=== PATIENT | female | born 1935 | race Caucasian/White ===

== ENCOUNTER → 2017-08-24 | Outpatient (CLI) | payer OTHER ==
[2017-08-24 17:24] LABS: BLOOD UREA NITROGEN 31 mg/dl (7-18); BUN/CREATININE RATIO 25.3 (10-20); CARBON DIOXIDE 27 mmol/L (21-32); CHLORIDE 100 mmol/L (98-107); CREATININE 1.24 mg/dl (0.60-1.20); GLUCOSE 143 mg/dl (70-99); POTASSIUM 4.1 mmol/L (3.5-5.1); SODIUM 134 mmol/L (136-145)
== END | disposition home or self-care (01) ==
LOC: C.LABPBG 15:45
PROVIDERS: ATTEND Family Medicine
DX: I10 Essential (primary) hypertension (principal)

== ENCOUNTER → 2017-10-02 | Outpatient (CLI) | payer OTHER ==
[2017-10-02 17:30] LABS: HEMOGLOBIN 11.5 g/dL (12.0-16.0); MEAN CELL VOLUME 90.7 fL (80-100); MEAN CORPUSCULAR HEMOGLOBIN 29.8 pg (25-34); MEAN CORPUSCULAR HGB CONC 32.9 g/dl (32-36); MEAN PLATELET VOLUME 10.7 fL (7.4-10.4); PLATELET COUNT 215 K/uL (130-400); RED CELL DISTRIBUTION WIDTH SD 45.8 fL (36.4-46.3); WHITE BLOOD COUNT 8.06 K/uL (4.8-10.8)
[2017-10-02 17:41] LABS: BLOOD UREA NITROGEN 11 mg/dl (7-18); CALCIUM 8.7 mg/dl (8.5-10.1); CARBON DIOXIDE 25 mmol/L (21-32); CREATININE 0.61 mg/dl (0.60-1.20); GLUCOSE 145 mg/dl (70-99); POTASSIUM 4.1 mmol/L (3.5-5.1); SODIUM 137 mmol/L (136-145)
[2017-10-02 20:26] LABS: BASO % 0.5 %; BASO ABS # 0.04 K/uL (0-0.2); EOS % 1.1 %; EOS ABS # 0.09 K/uL (0-0.5); IG# 0.02 K/uL (0.00-0.02); LYMPH % 16.6 %; LYMPH ABS # 1.34 K/uL (1.2-3.4); MONO % 10.3 %; MONO ABS # 0.83 K/uL (0.11-0.59); NEUT % 71.3 %; NEUT ABS # 5.74 K/uL (1.4-6.5)
== END | disposition home or self-care (01) ==
LOC: C.LABPBG 15:39
PROVIDERS: ATTEND Family Medicine
DX: D64.9 Anemia, unspecified (principal); R53.1 Weakness

== ENCOUNTER 2017-11-17 02:32 | Inpatient (IN) | payer OTHER ==
[~2017-11-17] VITALS: Ht 157.5 cm; Wt 48.3 kg
[2017-11-17] VITALS (7 sets, daily range): BP systolic 137–218; BP diastolic 66–91; PULSE 66–89; TEMP 36.7–37.2; O2SAT 90–97; Ht 157.5 cm; Wt 48.3 kg
[2017-11-17] MEDS ORDERED: FENTANYL CITRATE INJ 50 MCG/1 ML 2 ML VIAL IV STA ×2 (02:41→03:38)
--- NOTE | 2017-11-17 02:45 | EMERGENCY ROOM VISIT NOTE ---
History Report prepared by Bette: Darvin Hull Under the Supervision of: Dr. Ronn Castañeda M.D. First contact with patient: 02:34 Chief Complaint: FALL Stated Complaint: LEFT LEG PAIN/FALL History of Present Illness The patient is a 82 year old female who presents to the Emergency Room with complaints of constant left hip pain that began prior to arrival. She rates her discomfort as a 10/10 in severity. The patient states that she was ambulating back from the bathroom to her bed when she tripped and fell. She reports she fell on her buttocks and then hit her head posteriorly. She reports that since the fall she has been experiencing left hip and leg pain, but denies any headache and loss of consciousness. The patient states that she recently fell and hit her head again a couple of weeks ago. She reports that she went to the ED for this situation and had multiple stitches placed. The patient states that she had a triple bypass several weeks ago. 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 A total of 10 systems reviewed and were otherwise negative. Past Medical & Surgical Medical Problems: (1) Hypertensive urgency Surgical Problems: (1) Hx of CABG Family History Patient reports no known family medical history. Social History Marital Status: Housing Status: lives with significant other Occupation Status: retired Current/Historical Medications Scheduled Acetaminophen (Tylenol), 500 MG PO QID Aspirin (Aspirin Ec), 81 MG PO DAILY Atorvastatin (Lipitor), 20 MG PO DAILY Carvedilol (Coreg), 25 MG PO BIDM Clopidogrel (Plavix), 75 MG PO DAILY Escitalopram (Lexapro), 10 MG PO DAILY Ferrous Gluconate (Ferrous Gluconate), 324 MG PO QAM Hydralazine Hcl (Apresoline), 10 MG PO QID Lisinopril (Zestril), 30 MG PO DAILY Magnesium Oxide (Mag-Ox), 400 MG PO DAILY Nitroglycerin (Nitrostat), 0.4 MG UT PRN Oseltamivir (Tamiflu), 75 MG PO DAILY Polyethylene Glycol 3350 (Miralax), 17 GM PO DAILY Potassium Chloride (Klor-Con M20), 20 MEQ PO QAM Trazodone Hcl (Trazodone), 25 MG PO HS Scheduled PRN Acetaminophen (Tylenol), 650 MG PO Q4H PRN for Pain or Fever Lorazepam (Ativan), 0.5 MG PO TID PRN for Anxiety Tramadol (Ultram), 50 MG PO Q4H PRN for Pain Allergies Coded Allergies: No Known Allergies (Unverified , 11/17/17) Physical Exam Vital Signs Date Time Temp Pulse Resp B/P (MAP) Pulse Ox O2 Delivery O2 Flow Rate FiO2 11/17/17 05:26 60 16 192/80 95 Nasal Cannula 2.0 11/17/17 04:35 59 16 197/91 96 Nasal Cannula 4.0 11/17/17 03:48 94 Nasal Cannula 4.0 11/17/17 03:47 70 18 233/96 88 Room Air 11/17/17 03:23 71 18 190/116 92 Room Air 11/17/17 02:40 36.8 59 18 218/152 98 Room Air Physical Exam GENERAL: Patient is uncomfortable appearing and in mild distress. HEENT: Mild posterior tenderness to scalp, mucous membranes moist, no nasal congestion, no scleral icterus. NECK: No stridor, no adenopathy, no meningismus, trachea is midline. LUNGS: No dyspnea. Clear to auscultation and equal bilaterally. No wheeze, no rhonchi. HEART: Regular rate and rhythm. No murmurs, rubs, gallops appreciated. CHEST: Well healing sternotomy scar. ABDOMEN: Soft, nontender, bowel sounds positive, no masses appreciated, no peritonitis. BACK: No midline tenderness, no CVA tenderness EXTREMITIES: Normal motion all extremities, no cyanosis, no edema. Shortened externally rotated leg with pain upon palpation to left hip. NEUROLOGIC: Alert and oriented, no acute motor or sensory deficits, no focal weakness, cranial nerves grossly intact. SKIN: No rash, no jaundice, no diaphoresis. Medical Decision & Procedures ER Provider Diagnostic Interpretation: Radiology results and stated below per my review and radiologist interpretation: LEFT FEMUR 4 VIEW: Mild displaced intertrochanteric fracture. No dislocation. ONE VIEW PELVIS: Mild displaced intertrochanteric fracture. No dislocation. CHEST X-RAY: No fracture or dislocation. Laboratory Results 11/17/17 03:03 Red Blood Count 3.94, Mean Corpuscular Volume 92.6, Mean Corpuscular Hemoglobin 28.9, Mean Corpuscular Hemoglobin Concent 31.2, Mean Platelet Volume 11.0, Neutrophils (%) (Auto) 70.1, Lymphocytes (%) (Auto) 17.2, Monocytes (%) (Auto) 10.4, Eosinophils (%) (Auto) 1.1, Basophils (%) (Auto) 0.8, Neutrophils # (Auto ) 5.18, Lymphocytes # (Auto) 1.27, Monocytes # (Auto) 0.77, Eosinophils # (Auto ) 0.08, Basophils # (Auto) 0.06 11/17/17 03:03 Test 11/17/17 03:03 11/17/17 04:53 White Blood Count 7.39 K/uL (4.8-10.8) Red Blood Count 3.94 M/uL (4.2-5.4) Hemoglobin 11.4 g/dL (12.0-16.0) Hematocrit 36.5 % (37-47) Mean Corpuscular Volume 92.6 fL (80-100) Mean Corpuscular Hemoglobin 28.9 pg (25-34) Mean Corpuscular Hemoglobin Concent 31.2 g/dl (32-36) Platelet Count 198 K/uL (130-400) Mean Platelet Volume 11.0 fL (7.4-10.4) Neutrophils (%) (Auto) 70.1 % Lymphocytes (%) (Auto) 17.2 % Monocytes (%) (Auto) 10.4 % Eosinophils (%) (Auto) 1.1 % Basophils (%) (Auto) 0.8 % Neutrophils # (Auto) 5.18 K/uL (1.4-6.5) Lymphocytes # (Auto) 1.27 K/uL (1.2-3.4) Monocytes # (Auto) 0.77 K/uL (0.11-0.59) Eosinophils # (Auto) 0.08 K/uL (0-0.5) Basophils # (Auto) 0.06 K/uL (0-0.2) RDW Standard Deviation 54.8 fL (36.4-46.3) RDW Coefficient of Variation 15.9 % (11.5-14.5) Immature Granulocyte % (Auto) 0.4 % Immature Granulocyte # (Auto) 0.03 K/uL (0.00-0.02) Anion Gap 8.0 mmol/L (3-11) Est Creatinine Clear Calc Drug Dose 37.6 ml/min Estimated GFR () 70.4 Estimated GFR (Non- 60.8 BUN/Creatinine Ratio 20.1 (10-20) Calcium Level 8.9 mg/dl (8.5-10.1) Magnesium Level 2.0 mg/dl (1.8-2.4) Total Bilirubin 0.3 mg/dl (0.2-1) Direct Bilirubin 0.1 mg/dl (0-0.2) Aspartate Amino Transf (AST/SGOT) 21 U/L (15-37) Alanine Aminotransferase (ALT/SGPT) 21 U/L (12-78) Alkaline Phosphatase 77 U/L (45-117) Troponin I 0.021 ng/ml (0-0.045) Pro-B-Type Natriuretic Peptide 5896 pg/ml (0-1800) Total Protein 7.3 gm/dl (6.4-8.2) Albumin 2.8 gm/dl (3.4-5.0) Thyroid Stimulating Hormone (TSH) 2.860 uIu/ml (0.300-4.500) Laboratory results as reviewed by me. Medications Administered Medications (Trade) Dose Ordered Sig/Helio Route Start Time Stop Time Status Last Admin Dose Admin Fentanyl Citrate (Fentanyl Inj) 25 mcg NOW STAT IV 11/17/17 02:41 11/17/17 02:42 DC 11/17/17 03:12 25 MCG Fentanyl Citrate (Fentanyl Inj) 50 mcg NOW STAT IV 11/17/17 03:38 11/17/17 03:39 DC 11/17/17 03:40 50 MCG Labetalol HCl (Normodyne IV) 10 mg NOW STAT IV 11/17/17 04:09 11/17/17 04:10 DC 11/17/17 04:26 10 MG ECG Per My Interpretation Indication: weakness Rate (beats per minute): 55 Rhythm: sinus bradycardia Findings: T-wave inversion (Anterior), no acute ischemic change, no ectopy ED Course 1434: The patient was evaluated in room B02. A complete history and physical exam was performed. 0315: I reevaluated the patient and she is getting pain medication. 0405: I discussed the patients case with Dr. West, [facility]. He understands the patients condition and agrees to accept the patient. The patient will be further evaluated. Medical Decision 82 yr old female with fall at home (mechanical). Notes severe left hip pain. Believes she struck head during fall. She has intertrochanteric fracture on left. CT head negative. Pre-op EKG/labs ordered and are unremarkable. Pain controlled with Fentanyl. HTN with IV labetalol and hospitalist in to evaluate patient further. Head Trauma GCS Score: 15 Medication Reconcilliation Current Medication List: was personally reviewed by me Blood Pressure Screening Patient's blood pressure: Elevated blood pressure Will be monitored by Hospitalist Consults Time Called: 035 Consulting Physician: Mikayla Osborne Hospitalist Returned Call: [phone] I discussed the patients case with Mikayla Osborne [facility]. He understands the patients condition and agrees to accept the patient. The patient will be further evaluated. Impression Primary Impression: Intertrochanteric fracture of left hip Additional Impression: Hypertension Scribe Attestation The scribe's documentation has been prepared under my direction and personally reviewed by me in its entirety. I confirm that the note above accurately reflects all work, treatment, procedures, and medical decision making performed by me. Departure Information Dispostion Being Evaluated By Hospitalist Referrals Danyelle Alvarenga DO (PCP) Patient Instructions My [facility] Problem Qualifiers
[2017-11-17 03:16] LABS: BASO % 0.8 %; BASO ABS # 0.06 K/uL (0-0.2); EOS % 1.1 %; EOS ABS # 0.08 K/uL (0-0.5); HEMATOCRIT 36.5 % (37-47); HEMOGLOBIN 11.4 g/dL (12.0-16.0); IG# 0.03 K/uL (0.00-0.02); LYMPH % 17.2 %; LYMPH ABS # 1.27 K/uL (1.2-3.4); MEAN CELL VOLUME 92.6 fL (80-100); MEAN CORPUSCULAR HEMOGLOBIN 28.9 pg (25-34); MEAN CORPUSCULAR HGB CONC 31.2 g/dl (32-36); MONO % 10.4 %; MONO ABS # 0.77 K/uL (0.11-0.59); NEUT % 70.1 %; NEUT ABS # 5.18 K/uL (1.4-6.5); PLATELET COUNT 198 K/uL (130-400); RED CELL DISTRIBUTION WIDTH CV 15.9 % (11.5-14.5); RED CELL DISTRIBUTION WIDTH SD 54.8 fL (36.4-46.3); WHITE BLOOD COUNT 7.39 K/uL (4.8-10.8)
[2017-11-17] MEDS ORDERED: ACET-1311 PO (03:24)
[2017-11-17] MEDS ORDERED: ATOR-22 PO (03:26)
[2017-11-17] MEDS ORDERED: ASPI81TA28 PO (03:26)
[2017-11-17 03:32] LABS: CALCIUM 8.9 mg/dl (8.5-10.1); CREATININE 0.89 mg/dl (0.60-1.20); POTASSIUM 4.3 mmol/L (3.5-5.1)
[2017-11-17] MEDS ORDERED: CARV25TA2 PO (03:49)
[2017-11-17] MEDS ORDERED: ESCI10TA17 PO (03:51)
[2017-11-17] MEDS ORDERED: CLOP1TAB15 PO (03:51)
[2017-11-17] MEDS ORDERED: FERR325T18 PO (03:52)
[2017-11-17] MEDS ORDERED: HYDR-4715 PO (03:53)
[2017-11-17] MEDS ORDERED: LISI1TAB3 PO (03:54)
[2017-11-17] MEDS ORDERED: LORA-741 PO (03:55)
[2017-11-17] MEDS ORDERED: MAGN400T6 PO (03:56)
[2017-11-17] MEDS ORDERED: NITR0.4S UT (03:58)
[2017-11-17] MEDS ORDERED: MCRK20 PO (04:01)
[2017-11-17] MEDS ORDERED: TRAM-10 PO (04:06)
[2017-11-17] MEDS ORDERED: TRAZ50TA35 PO (04:07)
[2017-11-17] MEDS ORDERED: POLY335019 PO (04:09)
[2017-11-17] MEDS ORDERED: LABETALOL HCL IV 5 MG/ML 20ML IV STA (04:09)
[2017-11-17] MEDS ORDERED: OSEL75CA12 PO (04:11)
[2017-11-17] MEDS ORDERED: ACET-1256 PO (04:14)
[2017-11-17] MEDS ORDERED: CARVEDILOL 12.5 MG TAB PO ONE (04:47)
[2017-11-17 05:17] LABS: ALBUMIN 2.8 gm/dl (3.4-5.0); TOTAL PROTEIN 7.3 gm/dl (6.4-8.2)
[2017-11-17] MEDS ORDERED: HydrALAZINE 10 MG TAB PO ONE (05:19)
[2017-11-17] MEDS ORDERED: ACETAMINOPHEN 325 MG TAB PO PRN (05:30)
[2017-11-17] MEDS ORDERED: NITROGLYCERIN 0.4 MG SL PER TAB CHARGE SL PRN (05:30)
[2017-11-17] MEDS ORDERED: BISACODYL 10 MG SUPP PR PRN (05:30)
[2017-11-17] MEDS ORDERED: PROCHLORPERAZINE INJ 5 MG in SYRINGE 4 ML IV PRN (05:30)
[2017-11-17] MEDS ORDERED: MoRPHine SULFATE 4 MG/ML 1 ML CARP\\VIAL IV PRN ×2 (05:30→07:00)
[2017-11-17] MEDS ORDERED: NALOXONE HCL 0.4 MG/1 ML VIAL/CARP IV PRN (05:30)
[2017-11-17] MEDS ORDERED: SOD PHOSPHATE/SOD BIPHOSPHATE ENEMA 132 ML BTL PR PRN (05:30)
[2017-11-17] MEDS ORDERED: MAGNESIUM HYDROXIDE SUSP 30 ML UDC PO PRN (05:30)
[2017-11-17] MEDS ORDERED: TRAMADOL HCL 50 MG TAB PO PRN (05:30)
--- NOTE | 2017-11-17 06:49 | DIAGNOSTIC IMAGING REPORT ---
HEAD WITHOUT CONTRAST (CT) CLINICAL HISTORY: 82 years-old Female presenting with posterior head injury in fall. TECHNIQUE: Multidetector CT imaging of the head was performed without the use of intravenous contrast. IV contrast: None. A dose lowering technique was used consistent with the principles of ALARA (as low as reasonably achievable). COMPARISON: None. CT DOSE (mGy.cm): The estimated cumulative dose is 614.27 mGy.cm. FINDINGS: Counselor Manager topogram: Unremarkable. Proportional ventricular and sulcal prominence, likely age-related parenchymal volume loss. No effacement of the sulci at the vertex to suggest upward bowing of the corpus callosum. Periventricular and subcortical white matter hypoattenuation, nonspecific but likely indicative of chronic small vessel ischemic change. No mass effect or midline shift. No hemorrhage or acute territorial infarct. No extra-axial fluid collection. Postsurgical changes of right maxillary antrostomy. Mucosal thickening in the right maxillary sinus and ethmoid air cells. Calvarium intact. Limited soft tissue swelling and infiltration consistent with contusion in the right occipital region. IMPRESSION: 1. Chronic small vessel ischemic change. No acute intracranial abnormality. 2. Limited subcutaneous contusion in the right occipital region without underlying osseous injury. Electronically signed by: Yimi Francisco M.D. 11/17/2017 6:47 AM Dictated Date/Time: 11/17/2017 6:44 AM
[2017-11-17] MEDS ORDERED: HALOPERIDOL 1 MG TAB PO PRN (07:00)
[2017-11-17] MEDS: FERROUS GLUCONATE 324 MG TAB PO SCH (07:10)
[2017-11-17] MEDS: ATORVASTATIN 20 MG TAB PO SCH (07:10)
[2017-11-17] MEDS: POLYETHYLENE (MIRALAX) 17 GM PACK PO SCH (07:10)
[2017-11-17] MEDS: ASPIRIN 81 MG ECTAB PO SCH (07:10)
[2017-11-17] MEDS: ESCITALOPRAM OXALATE 10 MG TAB PO SCH (07:10)
[2017-11-17 07:32] LABS: HEMOGLOBIN A1C 5.9 % (4.5-5.6)
--- NOTE | 2017-11-17 07:48 | DIAGNOSTIC IMAGING REPORT ---
PELVIS 1 OR 2 VIEW ROUTINE CLINICAL HISTORY: 82 years-old Female presenting with left hip injury fall. TECHNIQUE: Single frontal view of the pelvis was obtained. COMPARISON: None. FINDINGS: Sacroiliac joints, pubic symphysis, and hip joints congruent. Bony pelvis intact. 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 Degenerative changes of the lower lumbar spine. IMPRESSION: Basocervical left femoral neck fracture with coxa vara angulation. Bony pelvis intact. Electronically signed by: Yimi Francisco M.D. 11/17/2017 7:46 AM Dictated Date/Time: 11/17/2017 7:44 AM
--- NOTE | 2017-11-17 07:49 | DIAGNOSTIC IMAGING REPORT ---
L FEMUR 2 VIEWS ROUTINE CLINICAL HISTORY: 82 years-old Female presenting with left hip injury in fall. TECHNIQUE: Frontal and lateral views of the left femur were obtained. COMPARISON: None. FINDINGS: Coxa vara angulation of the left femoral neck secondary to angulation at the basocervical left femoral neck fracture. The remainder of the left femur is intact. Knee joint congruent. No gross evidence of a knee joint effusion. Atherosclerosis. Surgical clip projects over the left inguinal region. IMPRESSION: Angulated basocervical left frontal neck fracture. The report will be called/faxed according to standard departmental protocol. Electronically signed by: Yimi Francisco M.D. 11/17/2017 7:48 AM Dictated Date/Time: 11/17/2017 7:47 AM
--- NOTE | 2017-11-17 07:50 | DIAGNOSTIC IMAGING REPORT ---
CHEST ONE VIEW PORTABLE CLINICAL HISTORY: 82 years-old Female presenting with Chest Pain, left hip injury status post fall. TECHNIQUE: Portable supine AP view of the chest was obtained. COMPARISON: None. FINDINGS: Median sternotomy wires and mediastinal surgical clips noted. Atherosclerosis of aortic arch. Cardiac silhouette mildly enlarged. Prominence of pulmonary vasculature likely due to supine technique. Lungs and pleural spaces clear. Osseous structures normal. Upper abdomen normal. IMPRESSION: 1. No acute cardiopulmonary disease. Electronically signed by: Yimi Francisco M.D. 11/17/2017 7:49 AM Dictated Date/Time: 11/17/2017 7:48 AM
[2017-11-17] MEDS: LISINOPRIL 20 MG TAB PO SCH (07:56)
[2017-11-17] MEDS ORDERED: HYDROmorphone INJ 1 MG/ML SYR IV STA ×2 (08:10→15:29)
[2017-11-17] MEDS ORDERED: ENALAPRILAT IV 1.25 MG in DEXTROSE 5% 25ML 25 ML IV ONE (08:30)
--- NOTE | 2017-11-17 08:30 | HISTORY & PHYSICAL EXAMINATION ---
DATE OF ADMISSION: 11/17/2017 PRIMARY CARE PHYSICIAN: Dr. Grey. CHIEF COMPLAINT: Fall, left hip pain. HISTORY OF PRESENT ILLNESS: History obtained from patient, daughter and records. Patient is a fair historian. Limited history secondary to dementia. 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 She underwent CABG for coronary artery disease at [facility], September 2017. Subsequently discharged home. Subsequently re-admitted a few days later with pneumonia. Patient subsequently discharged to [facility] initially for rehab. Unclear possibility of the patient ever going back home because of mentation change since bypass surgery. Family is concerned about possible stroke with right-sided facial weakness noted a few days after surgery - never acknowledged by [facility] providers as per daughter. [facility] the [facility], last one was last week. CT head last 11/14/2017 showed scalp hematoma on the right parietal area. no intracranial hemorrhage, Global atrophy, old lacunar infarct on the left. Last night, the patient was going to the bathroom when she fell on her left hip, excruciating pain, L hip noted to be rotated. Patient denies chest pain, shortness of breath, cough symptoms, syncope. Patient brought to the Emergency Room. MEDICAL HISTORY: As above. SURGERIES: She has had CABG. HOME MEDICATIONS: Include aspirin, Lipitor, Tylenol, Coreg, Plavix, Lexapro, ferrous gluconate, Apresoline, Ativan, Zestril, mag ox, Nitrostat, MiraLax and Tamiflu for prophylaxis. Ultram, trazodone. ALLERGIES: No known drug allergies. FAMILY HISTORY: Could not be obtained PERSONAL AND SOCIAL HISTORY: Nonsmoker, no chronic ETOH intake. She was living with prior to surgery at [facility]. REVIEW OF SYSTEMS: Could not be obtained. PHYSICAL EXAMINATION: VITAL SIGNS: Blood pressure was noted to be 190/116, later 180/90 cardiac rate 70, RR 18, temperature 36.9, and sats 90 on room air. GENERAL: Noted to be hyposthenic, demented, coherent, somewhat candid, slightly hard of hearing SKIN: Pallor, warm. HEENT: Pale palpebral conjunctivae, no ptosis, right facial asymmetry (old as per daughter) NECK: Supple, nontender. CHEST: Decreased effort. no tenderness HEART: Regular rate and rhythm. Systolic murmur, palpable LE pulses. ABDOMEN: Some distention, nontender. EXTREMITIES: Tenderness in the left hip, some rotation. NEUROLOGIC: Demented, but coherent. Subtle facial asymmetry, mild hearing impairment. LABORATORY DATA: Hemoglobin was noted to be 11.4, hematocrit 36.5, white cell count 7.89, platelets 198. Sodium 139, potassium4.3, chloride 106, CO2 25, BUN 18, creatinine 8, glucose was noted to be 118. DIAGNOSTIC STUDIES: Chest x-ray as per my interpretation minimal congestion, cardiomegaly. CT of the head initial read showed chronic small vessel ischemic change, subcutaneous contusion, right occipital area. Pelvis x-ray as per my interpretation fracture left femoral neck fracture. EKG as per my interpretation, rate 55, sinus bradycardia, inferior infarct, diffuse T-wave flattening, PRWP ASSESSMENT: 1. Left femoral fracture secondary to mechanical fall. history of ambulatory dysfunction 2. hypertension urgency secondary to pain. 3. chronic systolic heart failure secondary to ischemic cardiomyopathy mild congestion on CXR although the patient asymptomatic. 4. coronary artery disease status post coronary artery bypass graft ([facility], 09/2017) 5 . Possible post CABG CVA 6. COPD as per records, patient not in respiratory distress 7. Chronic anemia, hemoglobin at baseline. 8. Dementia as per records, patient mentation at baseline 9. Hyperglycemia, rule out diabetes. PLAN: PCU primarily for hypertensive urgency Facilitate home antihypertensive meds. analgesia Orthopedics consult as per patient's daughter's request to discuss options for management RE left femoral fracture. If surgery recommended, recommend Cardiology preop eval to medically optimize patient given patient's high risk for cardiac complications for contemplated procedure given recent CVA and multiple comorbidities. Continue home aspirin at the minimum for secondary CAD/stroke prevention. Continue home Plavix if Orthopedics okay. Delirium precautions. Check hemoglobin A1c DVT prophylaxis. SCDs RE recent scalp hematoma from fall. Full code as per daughter, Ms. Noy Slater. She requests update from providers at [phone]. MTDD
[2017-11-17 11:08] LABS: PTT PATIENT 24.7 SECONDS (21.0-31.0)
[2017-11-17] MEDS: HydrALAZINE 10 MG TAB PO SCH ×3 (12:02→21:04)
--- NOTE | 2017-11-17 12:05 | Orthopedic Consultation ---
Orthopedic Consultation Date of Consultation: Nov 17, 2017. Attending Physician: Tosha Peña DO Reason for Consultation: Left hip fracture History of Present Illness Patient was seen at bedside accompanied by family, reported a fall from standing height while ambulating at her living facility and. The patient is a poor historian. The majority of the HPI was obtained by the daughter who was at bedside. The patient has had increased frequency in falls recently. The patient is comfortable at rest however does admit to pain with movement of the left lower extremity. Past Medical/Surgical History Medical Problems: (1) Hypertension Status: Acute (2) Intertrochanteric fracture of left hip Status: Acute Family History Patient reports no known family medical history. Social History Smoking Status: Unknown if Ever Smoked Marital Status: Housing Status: lives with significant other Occupation Status: retired Allergies Coded Allergies: No Known Allergies (Unverified , 11/17/17) Home Medications Scheduled Acetaminophen (Tylenol), 500 MG PO QID Aspirin (Aspirin Ec), 81 MG PO DAILY Atorvastatin (Lipitor), 20 MG PO DAILY Carvedilol (Coreg), 25 MG PO BIDM Clopidogrel (Plavix), 75 MG PO DAILY Escitalopram (Lexapro), 10 MG PO DAILY Ferrous Gluconate (Ferrous Gluconate), 324 MG PO QAM Hydralazine Hcl (Apresoline), 10 MG PO QID Lisinopril (Zestril), 30 MG PO DAILY Magnesium Oxide (Mag-Ox), 400 MG PO DAILY Nitroglycerin (Nitrostat), 0.4 MG UT PRN Oseltamivir (Tamiflu), 75 MG PO DAILY Polyethylene Glycol 3350 (Miralax), 17 GM PO DAILY Potassium Chloride (Klor-Con M20), 20 MEQ PO QAM Trazodone Hcl (Trazodone), 25 MG PO HS Scheduled PRN Acetaminophen (Tylenol), 650 MG PO Q4H PRN for Pain or Fever Lorazepam (Ativan), 0.5 MG PO TID PRN for Anxiety Tramadol (Ultram), 50 MG PO Q4H PRN for Pain Current Inpatient Medications Current Inpatient Medications Medications (Trade) Dose Ordered Sig/Helio Route Start Time Stop Time Status Last Admin Dose Admin Carvedilol (Coreg Tab) 25 mg BIDM PO 11/17/17 16:45 12/17/17 16:44 Acetaminophen (Tylenol Tab) 650 mg Q4H PRN PO 11/17/17 05:30 12/17/17 05:29 Nitroglycerin (Nitrostat Tab) 0.4 mg UD PRN SL 11/17/17 05:30 12/17/17 05:29 Aspirin (Ecotrin Tab) 81 mg DAILY PO 11/17/17 09:00 12/17/17 08:59 Atorvastatin Calcium (Lipitor Tab) 20 mg DAILY PO 11/17/17 09:00 12/17/17 08:59 Escitalopram Oxalate (Lexapro Tab) 10 mg DAILY PO 11/17/17 09:00 12/17/17 08:59 Ferrous Gluconate (Ferrous Gluconate Tab) 324 mg QAM PO 11/17/17 09:00 12/17/17 08:59 Hydralazine HCl (Apresoline Tab) 10 mg QID PO 11/17/17 13:00 12/17/17 12:59 Lisinopril (Zestril Tab) 30 mg DAILY PO 11/17/17 09:00 12/17/17 08:59 11/17/17 07:56 30 MG Tramadol HCl (Ultram Tab) 50 mg Q4H PRN PO 11/17/17 05:30 12/17/17 05:29 Trazodone HCl (Desyrel Tab) 25 mg HS PO 11/17/17 21:00 12/17/17 20:59 Polyethylene (Miralax Powder Packet) 17 gm DAILY PO 11/17/17 09:00 12/17/17 08:59 Prochlorperazine Edisylate 5 mg/ Syringe 5 ml @ 5 mls/min Q6H PRN IV 11/17/17 05:30 12/17/17 05:29 Naloxone HCl (Narcan Inj) 0.1 mg PRN PRN IV 11/17/17 05:30 12/17/17 05:29 Senna/Docusate Sodium (Senokot S Tab) 2 tab HS PO 11/17/17 21:00 12/17/17 20:59 Magnesium Hydroxide (Milk Of Magnesia Susp) 30 ml DAILY PRN PO 11/17/17 05:30 12/17/17 05:29 Bisacodyl (Dulcolax Supp) 10 mg DAILY PRN IL 11/17/17 05:30 12/17/17 05:29 Sodium Biphosphate/ Sodium Phosphate (Fleet Enema) 132 ml PRN PRN IL 11/17/17 05:30 Haloperidol Lactate (Haldol Inj) 2 mg Q2H PRN IM 11/17/17 07:00 12/17/17 06:59 Haloperidol (Haldol Tab) 2 mg Q4H PRN PO 11/17/17 07:45 12/17/17 06:59 Hydromorphone HCl (Dilaudid Inj) 1 mg Q3HWA PRN IV 11/17/17 09:45 12/01/17 09:44 Physical Exam Date Time Temp Pulse Resp B/P (MAP) Pulse Ox O2 Delivery O2 Flow Rate FiO2 11/17/17 08:52 176/73 (107) 11/17/17 08:00 36.7 89 18 213/80 (124) 96 218/91 (133) 11/17/17 08:00 Nasal Cannula 2.0 11/17/17 06:23 36.9 66 22 216/84 97 Nasal Cannula 2.0 11/17/17 05:26 60 16 192/80 95 Nasal Cannula 2.0 11/17/17 04:35 59 16 197/91 96 Nasal Cannula 4.0 11/17/17 03:48 94 Nasal Cannula 4.0 11/17/17 03:47 70 18 233/96 88 Room Air 11/17/17 03:23 71 18 190/116 92 Room Air 11/17/17 02:40 36.8 59 18 218/152 98 Room Air NAD B/L UE NVSI +R/U/M/AIN/PIN, SILT grossly, +2 radial pulse, compartment soft NT, painless ROM wrist, elbow, shoulder. LLE: NVSI +EHL/FHL/TA/GS SILT grossly, short and externally rotated, compartments soft NT, skin intact. RLE: NVSI +EHL/FHL/TA/GS SILT grossly, +2 DP pulse, CR< 2 seconds, compartment soft NT, painless ROM ankle, knee, hip Laboratory Results Last 24 Hours Test 11/17/17 03:03 11/17/17 07:15 11/17/17 10:37 White Blood Count 7.39 K/uL Red Blood Count 3.94 M/uL Hemoglobin 11.4 g/dL Hematocrit 36.5 % Mean Corpuscular Volume 92.6 fL Mean Corpuscular Hemoglobin 28.9 pg Mean Corpuscular Hemoglobin Concent 31.2 g/dl Platelet Count 198 K/uL Mean Platelet Volume 11.0 fL Neutrophils (%) (Auto) 70.1 % Lymphocytes (%) (Auto) 17.2 % Monocytes (%) (Auto) 10.4 % Eosinophils (%) (Auto) 1.1 % Basophils (%) (Auto) 0.8 % Neutrophils # (Auto) 5.18 K/uL Lymphocytes # (Auto) 1.27 K/uL Monocytes # (Auto) 0.77 K/uL Eosinophils # (Auto) 0.08 K/uL Basophils # (Auto) 0.06 K/uL RDW Standard Deviation 54.8 fL RDW Coefficient of Variation 15.9 % Immature Granulocyte % (Auto) 0.4 % Immature Granulocyte # (Auto) 0.03 K/uL Sodium Level 139 mmol/L Potassium Level 4.3 mmol/L Chloride Level 106 mmol/L Carbon Dioxide Level 25 mmol/L Anion Gap 8.0 mmol/L Blood Urea Nitrogen 18 mg/dl Creatinine 0.89 mg/dl Est Creatinine Clear Calc Drug Dose 37.6 ml/min Estimated GFR () 70.4 Estimated GFR (Non- 60.8 BUN/Creatinine Ratio 20.1 Random Glucose 180 mg/dl Estimated Average Glucose 123 mg/dl Hemoglobin A1c 5.9 % Calcium Level 8.9 mg/dl Magnesium Level 2.0 mg/dl Total Bilirubin 0.3 mg/dl Direct Bilirubin 0.1 mg/dl Aspartate Amino Transf (AST/SGOT) 21 U/L Alanine Aminotransferase (ALT/SGPT) 21 U/L Alkaline Phosphatase 77 U/L Troponin I 0.021 ng/ml Pro-B-Type Natriuretic Peptide 5896 pg/ml Total Protein 7.3 gm/dl Albumin 2.8 gm/dl Thyroid Stimulating Hormone (TSH) 2.860 uIu/ml Bedside Glucose 191 mg/dl Activated Partial Thromboplast Time 24.7 SECONDS Partial Thromboplastin Ratio 1.0 Assessment & Plan Left displaced basicervical femoral neck fracture -82yo Female with displaced left basicervical femoral neck fracture sustained after a fall. Pending medical clearance I indicated the patient for left cephalo-medullary nail. The family and patient were informed of the risks and benefits of surgery, which included but not limited to infection, bleeding, blood clots, damage to nerves, vessels, bone and soft tissue, leg length discrepancy, malunion, non union, need for additional surgery and . The patients family collectively chose to move forward with surgical intervention and informed consent was obtained. Given the patient's significant past medical history of recent she will require medical clearance as well as cardiology clearance. She was we are able to obtain those clearances we will move forward with surgical intervention. The plan for surgery is 11/18/17 am. -Bedrest -Brooks -Pain control -NWB LLE -NPO after midnight -hold anticoagulation for surgery
--- NOTE | 2017-11-17 12:06 | Anesthesiology Progress Note ---
Pre-OP Anesthesia Assessment Date of Note Nov 17, 2017. Review patient information reviewed, chart reviewed, labs reviewed, acceptable for surgery Notes Elderly female has left hip fracture. Tentatively scheduled for ORIF, pending medical evaluation. PMH includes HTN, DM, CAD/UT, CABG 09/2017, ?post-CABG CVA, anemia, mild dementia. Pt has had anesthesia in the past without complications. She has been on Plavix up until this admission, hence general anesthesia is indicated for this procedure. Risks vs benefit of GA with direct arterial BP monitoring discussed with pt and her daughter. They expressed understanding and signed informed consent.
--- NOTE | 2017-11-17 12:55 | Cardiology Consultation ---
Cardiology Consultation Date of Service Nov 17, 2017. Cardiology Consultation Indication: Consultation for preoperative risk assessment for her of the left hip fracture History: This is an elderly 82-year-old female who underwent coronary artery bypass surgery at [facility] in September. The patient is demented and a poor historian. Information is taken from the medical record as well as the patient's son who was present during my interview and exam. According to her son, initially she did well after her surgery but then developed sundowning and had at least a 2 week postoperative course and hospital stay. After discharge, his sister who is a nurse, was staying with her mom for approximately 2 weeks but indicated the patient was not rehabbing well and doing very little for herself. She was then readmitted to [facility] with what is described as possible congestive heart failure and pneumonia. She was eventually discharged and had an additional admission which eventually led to her being admitted to [facility]. I have no record of the above hospital admissions. According to the son, it was felt that his mom may have had a perioperative stroke. According to records in [facility], the PA from [facility] with a history of frequent falls. On the morning of admission she was found on the floor by the staff and was complaining of hip discomfort. She was sent to [facility] where she has been found to have a left hip fracture that will need open reduction and fixation. I've been asked to see the patient in regard to risk assessment for surgery. Allergies: No known medical allergies Current Inpatient Medications Medications (Trade) Dose Ordered Sig/Helio Route Start Time Stop Time Status Last Admin Dose Admin Carvedilol (Coreg Tab) 25 mg BIDM PO 11/17/17 16:45 12/17/17 16:44 Acetaminophen (Tylenol Tab) 650 mg Q4H PRN PO 11/17/17 05:30 12/17/17 05:29 Nitroglycerin (Nitrostat Tab) 0.4 mg UD PRN SL 11/17/17 05:30 12/17/17 05:29 Aspirin (Ecotrin Tab) 81 mg DAILY PO 11/17/17 09:00 12/17/17 08:59 Atorvastatin Calcium (Lipitor Tab) 20 mg DAILY PO 11/17/17 09:00 12/17/17 08:59 Escitalopram Oxalate (Lexapro Tab) 10 mg DAILY PO 11/17/17 09:00 12/17/17 08:59 Ferrous Gluconate (Ferrous Gluconate Tab) 324 mg QAM PO 11/17/17 09:00 12/17/17 08:59 Hydralazine HCl (Apresoline Tab) 10 mg QID PO 11/17/17 13:00 12/17/17 12:59 11/17/17 12:02 10 MG Lisinopril (Zestril Tab) 30 mg DAILY PO 11/17/17 09:00 12/17/17 08:59 11/17/17 07:56 30 MG Tramadol HCl (Ultram Tab) 50 mg Q4H PRN PO 11/17/17 05:30 12/17/17 05:29 Trazodone HCl (Desyrel Tab) 25 mg HS PO 11/17/17 21:00 12/17/17 20:59 Polyethylene (Miralax Powder Packet) 17 gm DAILY PO 11/17/17 09:00 12/17/17 08:59 Prochlorperazine Edisylate 5 mg/ Syringe 5 ml @ 5 mls/min Q6H PRN IV 11/17/17 05:30 12/17/17 05:29 Naloxone HCl (Narcan Inj) 0.1 mg PRN PRN IV 11/17/17 05:30 12/17/17 05:29 Senna/Docusate Sodium (Senokot S Tab) 2 tab HS PO 11/17/17 21:00 12/17/17 20:59 Magnesium Hydroxide (Milk Of Magnesia Susp) 30 ml DAILY PRN PO 11/17/17 05:30 12/17/17 05:29 Bisacodyl (Dulcolax Supp) 10 mg DAILY PRN LA 11/17/17 05:30 12/17/17 05:29 Sodium Biphosphate/ Sodium Phosphate (Fleet Enema) 132 ml PRN PRN LA 11/17/17 05:30 Haloperidol Lactate (Haldol Inj) 2 mg Q2H PRN IM 11/17/17 07:00 12/17/17 06:59 Haloperidol (Haldol Tab) 2 mg Q4H PRN PO 11/17/17 07:45 12/17/17 06:59 Hydromorphone HCl (Dilaudid Inj) 1 mg Q3HWA PRN IV 11/17/17 09:45 12/01/17 09:44 Past medical history: Per the history of chief complaint in addition the patient may have sustained a previous stroke and according to records a possible cerebral contusion following a recent fall. She also may have a history of COPD. Social history: Patient is currently a nonsmoker Family medical history: Noncontributory Review of systems: Except for the history of chief complaint unobtainable Vital Signs Past 12 Hours Date Time Temp Pulse Resp B/P (MAP) Pulse Ox O2 Delivery O2 Flow Rate FiO2 11/17/17 12:02 36.8 66 18 186/73 (110) 95 11/17/17 12:00 Nasal Cannula 2.0 11/17/17 08:52 176/73 (107) 11/17/17 08:00 36.7 89 18 213/80 (124) 96 218/91 (133) 11/17/17 08:00 Nasal Cannula 2.0 11/17/17 06:23 36.9 66 22 216/84 97 Nasal Cannula 2.0 11/17/17 05:26 60 16 192/80 95 Nasal Cannula 2.0 11/17/17 04:35 59 16 197/91 96 Nasal Cannula 4.0 11/17/17 03:48 94 Nasal Cannula 4.0 11/17/17 03:47 70 18 233/96 88 Room Air 11/17/17 03:23 71 18 190/116 92 Room Air 11/17/17 02:40 36.8 59 18 218/152 98 Room Air General Appearance: The patient is demented and disoriented Head: Normocephalic Atraumatic. Eyes: PERRLA, EOMI, conjunctiva and sclera clear Neck: Supple. No carotid bruits noted. No JVD. No HJD. Respiratory: Breath sounds clear to auscultation bilaterally. No w/r/r. Cardiovascular: Surgical scar on the anterior chest Reg rate and rhythm. S1 and S2 noted. No murmurs, rubs, gallops. PMI non displace. Abdomen: Normal bowel sounds, soft nontender. no abdominal bruits. Extremities: No edema, no clubbing or cyanosis. distal pulses 2/4 bilaterally. Neuro: No focal deficits. Psychiatric: Disoriented Last 24 Hours Test 11/17/17 03:03 11/17/17 07:15 11/17/17 10:37 White Blood Count 7.39 K/uL Red Blood Count 3.94 M/uL Hemoglobin 11.4 g/dL Hematocrit 36.5 % Mean Corpuscular Volume 92.6 fL Mean Corpuscular Hemoglobin 28.9 pg Mean Corpuscular Hemoglobin Concent 31.2 g/dl Platelet Count 198 K/uL Mean Platelet Volume 11.0 fL Neutrophils (%) (Auto) 70.1 % Lymphocytes (%) (Auto) 17.2 % Monocytes (%) (Auto) 10.4 % Eosinophils (%) (Auto) 1.1 % Basophils (%) (Auto) 0.8 % Neutrophils # (Auto) 5.18 K/uL Lymphocytes # (Auto) 1.27 K/uL Monocytes # (Auto) 0.77 K/uL Eosinophils # (Auto) 0.08 K/uL Basophils # (Auto) 0.06 K/uL RDW Standard Deviation 54.8 fL RDW Coefficient of Variation 15.9 % Immature Granulocyte % (Auto) 0.4 % Immature Granulocyte # (Auto) 0.03 K/uL Sodium Level 139 mmol/L Potassium Level 4.3 mmol/L Chloride Level 106 mmol/L Carbon Dioxide Level 25 mmol/L Anion Gap 8.0 mmol/L Blood Urea Nitrogen 18 mg/dl Creatinine 0.89 mg/dl Est Creatinine Clear Calc Drug Dose 37.6 ml/min Estimated GFR () 70.4 Estimated GFR (Non- 60.8 BUN/Creatinine Ratio 20.1 Random Glucose 180 mg/dl Estimated Average Glucose 123 mg/dl Hemoglobin A1c 5.9 % Calcium Level 8.9 mg/dl Magnesium Level 2.0 mg/dl Total Bilirubin 0.3 mg/dl Direct Bilirubin 0.1 mg/dl Aspartate Amino Transf (AST/SGOT) 21 U/L Alanine Aminotransferase (ALT/SGPT) 21 U/L Alkaline Phosphatase 77 U/L Troponin I 0.021 ng/ml Pro-B-Type Natriuretic Peptide 5896 pg/ml Total Protein 7.3 gm/dl Albumin 2.8 gm/dl Thyroid Stimulating Hormone (TSH) 2.860 uIu/ml Bedside Glucose 191 mg/dl Activated Partial Thromboplast Time 24.7 SECONDS Partial Thromboplastin Ratio 1.0 Impression: 1. Advanced dementia 2. History of previous strokes 3. Left hip fracture 4. Recent CABG 5. History of COPD Recommendations: This patient is at increased risk for any surgical procedures due to her advanced dementia, recent strokes and other medical problems however , the patient is currently hemodynamically stable and optimally medically managed. She will need to have the hip fracture stabilized for comfort and quality of life. I discussed with the patient's son who is understanding regarding the risks of surgery. Both the son as well as his sister are agreeable to allowing the surgery to be completed. I will try to obtain the records of her recent hospital admissions. I will also obtain an echocardiogram for baseline and to help medically manage this patient but it should not delay her surgery. We will follow along with you during her hospital stay.
[2017-11-17] MEDS: HYDROmorphone INJ 1 MG/ML SYR IV PRN ×3 (13:39→21:05)
--- NOTE | 2017-11-17 15:29 | Progress Note ---
Subjective Date of Service: Nov 17, 2017. Subjective Pt evaluation today including: conversation w/ patient, conversation w/ family , physical exam, lab review, review of studies, conversation w/ jd edwards consultant, review of inpatient medication list Saw/examined the patient in room 238 She has underlying dementia Daughter and son at bedside - I spoke with them regarding patient's condition - high risk for surgery patient's pain better controlled with Dilaudid Problem List Medical Problems: (1) Hypertension Status: Acute (2) Intertrochanteric fracture of left hip Status: Acute Review of Systems Difficult to obtain due to patient's mental status Medications Current Inpatient Medications Medications (Trade) Dose Ordered Sig/Helio Route Start Time Stop Time Status Last Admin Dose Admin Carvedilol (Coreg Tab) 25 mg BIDM PO 11/17/17 16:45 12/17/17 16:44 Acetaminophen (Tylenol Tab) 650 mg Q4H PRN PO 11/17/17 05:30 12/17/17 05:29 Nitroglycerin (Nitrostat Tab) 0.4 mg UD PRN SL 11/17/17 05:30 12/17/17 05:29 Aspirin (Ecotrin Tab) 81 mg DAILY PO 11/17/17 09:00 12/17/17 08:59 Atorvastatin Calcium (Lipitor Tab) 20 mg DAILY PO 11/17/17 09:00 12/17/17 08:59 Escitalopram Oxalate (Lexapro Tab) 10 mg DAILY PO 11/17/17 09:00 12/17/17 08:59 Ferrous Gluconate (Ferrous Gluconate Tab) 324 mg QAM PO 11/17/17 09:00 12/17/17 08:59 Hydralazine HCl (Apresoline Tab) 10 mg QID PO 11/17/17 13:00 12/17/17 12:59 11/17/17 12:02 10 MG Lisinopril (Zestril Tab) 30 mg DAILY PO 11/17/17 09:00 12/17/17 08:59 11/17/17 07:56 30 MG Tramadol HCl (Ultram Tab) 50 mg Q4H PRN PO 11/17/17 05:30 12/17/17 05:29 Trazodone HCl (Desyrel Tab) 25 mg HS PO 11/17/17 21:00 12/17/17 20:59 Polyethylene (Miralax Powder Packet) 17 gm DAILY PO 11/17/17 09:00 12/17/17 08:59 Prochlorperazine Edisylate 5 mg/ Syringe 5 ml @ 5 mls/min Q6H PRN IV 11/17/17 05:30 12/17/17 05:29 Naloxone HCl (Narcan Inj) 0.1 mg PRN PRN IV 11/17/17 05:30 12/17/17 05:29 Senna/Docusate Sodium (Senokot S Tab) 2 tab HS PO 11/17/17 21:00 12/17/17 20:59 Magnesium Hydroxide (Milk Of Magnesia Susp) 30 ml DAILY PRN PO 11/17/17 05:30 12/17/17 05:29 Bisacodyl (Dulcolax Supp) 10 mg DAILY PRN IL 11/17/17 05:30 12/17/17 05:29 Sodium Biphosphate/ Sodium Phosphate (Fleet Enema) 132 ml PRN PRN IL 11/17/17 05:30 Haloperidol Lactate (Haldol Inj) 2 mg Q2H PRN IM 11/17/17 07:00 12/17/17 06:59 Haloperidol (Haldol Tab) 2 mg Q4H PRN PO 11/17/17 07:45 12/17/17 06:59 Hydromorphone HCl (Dilaudid Inj) 1 mg Q3HWA PRN IV 11/17/17 09:45 12/01/17 09:44 11/17/17 13:39 1 MG Objective Vital Signs Date Time Temp Pulse Resp B/P (MAP) Pulse Ox O2 Delivery O2 Flow Rate FiO2 11/17/17 08:52 176/73 (107) 11/17/17 08:00 36.7 89 18 213/80 (124) 96 218/91 (133) 11/17/17 08:00 Nasal Cannula 2.0 11/17/17 06:23 36.9 66 22 216/84 97 Nasal Cannula 2.0 11/17/17 05:26 60 16 192/80 95 Nasal Cannula 2.0 11/17/17 04:35 59 16 197/91 96 Nasal Cannula 4.0 11/17/17 03:48 94 Nasal Cannula 4.0 11/17/17 03:47 70 18 233/96 88 Room Air 11/17/17 03:23 71 18 190/116 92 Room Air 11/17/17 02:40 36.8 59 18 218/152 98 Room Air Physical Exam General Appearance: no apparent distress, + thin, + pertinent finding ( underlying dementia) ENT: + pertinent finding (R posterior scalp hematoma noted) Respiratory/Chest: lungs clear, normal breath sounds, no respiratory distress, no accessory muscle use Cardiovascular: regular rate, rhythm, no edema, no murmur Extremities: normal inspection, no pedal edema Laboratory Results Last 24 Hours Test 11/17/17 03:03 11/17/17 04:53 11/17/17 07:15 White Blood Count 7.39 K/uL Red Blood Count 3.94 M/uL Hemoglobin 11.4 g/dL Hematocrit 36.5 % Mean Corpuscular Volume 92.6 fL Mean Corpuscular Hemoglobin 28.9 pg Mean Corpuscular Hemoglobin Concent 31.2 g/dl Platelet Count 198 K/uL Mean Platelet Volume 11.0 fL Neutrophils (%) (Auto) 70.1 % Lymphocytes (%) (Auto) 17.2 % Monocytes (%) (Auto) 10.4 % Eosinophils (%) (Auto) 1.1 % Basophils (%) (Auto) 0.8 % Neutrophils # (Auto) 5.18 K/uL Lymphocytes # (Auto) 1.27 K/uL Monocytes # (Auto) 0.77 K/uL Eosinophils # (Auto) 0.08 K/uL Basophils # (Auto) 0.06 K/uL RDW Standard Deviation 54.8 fL RDW Coefficient of Variation 15.9 % Immature Granulocyte % (Auto) 0.4 % Immature Granulocyte # (Auto) 0.03 K/uL Sodium Level 139 mmol/L Potassium Level 4.3 mmol/L Chloride Level 106 mmol/L Carbon Dioxide Level 25 mmol/L Anion Gap 8.0 mmol/L Blood Urea Nitrogen 18 mg/dl Creatinine 0.89 mg/dl Est Creatinine Clear Calc Drug Dose 37.6 ml/min Estimated GFR () 70.4 Estimated GFR (Non- 60.8 BUN/Creatinine Ratio 20.1 Random Glucose 180 mg/dl Estimated Average Glucose 123 mg/dl Hemoglobin A1c 5.9 % Calcium Level 8.9 mg/dl Magnesium Level 2.0 mg/dl Total Bilirubin 0.3 mg/dl Direct Bilirubin 0.1 mg/dl Aspartate Amino Transf (AST/SGOT) 21 U/L Alanine Aminotransferase (ALT/SGPT) 21 U/L Alkaline Phosphatase 77 U/L Troponin I 0.021 ng/ml Pro-B-Type Natriuretic Peptide 5896 pg/ml Total Protein 7.3 gm/dl Albumin 2.8 gm/dl Thyroid Stimulating Hormone (TSH) 2.860 uIu/ml Bedside Glucose 191 mg/dl Assessment and Plan This is an 82 year old female with a PMH of CAD s/p CABG, ischemic cardiomyopathy and chronic systolic CHF, uncontrolled HTN, depression/anxiety, anemia - presents with a fall and subsequent hip fracture Multiple Falls due to Ambulatory Dysfunction L Femoral Neck Fracture patient presents to the hospital due to multiple falls from [facility] last fall caused significant L hip pain; upon presentation had imaging confirming fracture orthopedics input appreciated - to go for surgery in AM (11/18) cardiology consulted for clearance; she is high risk for surgery, but for quality of life, will proceed Plavix is held, will restart on 11/19 anesthesia also consulted; patient may need a one day stay in ICU post- operatively Altered Mental Status patient's family stating that she has not been the same mentally since her CABG in September Head CT suggests chronic small vessel changes may need to increase statin and possibly aspirin dose - but will refrain from making changes until after surgery CAD s/p CABG recent CABG in September 2017 continue current cardiac meds (hold Plavix for surgery) repeat echo pending cardiology consulted Uncontrolled HTN difficult to control blood pressure, likely worsened secondary to pain as per daughter, blood pressure has been an issue for over 4 months she is on Coreg; would be hesitant to increase this due to intermittent low HRs She is on Hydralazine 10mg QID and Lisinopril 30mg daily if blood pressure remains high, will likely increase Lisinopril to 40mg vs. adding CCB Ischemic Cardiomyopathy Chronic Systolic CHF currently euvolemic no need for any diuretics at this time Depression/Anxiety continue home medications Iron Deficiency Anemia Hgb stable, continue iron supplementation DVT ppx SCDs due to hematoma in the scalp may need chemical prophylaxis post operatively due to high risk of DVTs FULL CODE
[2017-11-17] MEDS ORDERED: NURSING VERBAL MED ORDER ONE (15:30)
[2017-11-17] MEDS: CARVEDILOL 25 MG TAB PO SCH (16:20)
[2017-11-17] MEDS ORDERED: DOCUSATE SODIUM/SENNA 50/8.6MG TAB PO SCH (21:00)
[2017-11-17] MEDS: TRAZODONE HCL 50 MG TAB PO SCH (21:03)
[2017-11-17] MEDS: HALOPERIDOL 1 MG TAB PO PRN (23:02)
[2017-11-18] VITALS (22 sets, daily range): BP systolic 123–202; BP diastolic 42–91; PULSE 56–78; TEMP 36.5–37.9; O2SAT 90–99
[2017-11-18] MEDS: HYDROmorphone INJ 1 MG/ML SYR IV PRN ×4 (00:30→20:27)
[2017-11-18 07:03] LABS: CALCIUM 9.2 mg/dl (8.5-10.1); CREATININE 0.85 mg/dl (0.60-1.20); POTASSIUM 4.5 mmol/L (3.5-5.1)
[2017-11-18 07:13] LABS: BASO % 0.7 %; BASO ABS # 0.07 K/uL (0-0.2); EOS % 0.6 %; EOS ABS # 0.06 K/uL (0-0.5); HEMATOCRIT 33.2 % (37-47); HEMOGLOBIN 10.4 g/dL (12.0-16.0); IG# 0.03 K/uL (0.00-0.02); LYMPH % 17.8 %; LYMPH ABS # 1.88 K/uL (1.2-3.4); MEAN CELL VOLUME 92.2 fL (80-100); MEAN CORPUSCULAR HEMOGLOBIN 28.9 pg (25-34); MEAN CORPUSCULAR HGB CONC 31.3 g/dl (32-36); MEAN PLATELET VOLUME 10.4 fL (7.4-10.4); MONO % 10.2 %; MONO ABS # 1.08 K/uL (0.11-0.59); NEUT % 70.4 %; NEUT ABS # 7.45 K/uL (1.4-6.5); PLATELET COUNT 231 K/uL (130-400); RED CELL DISTRIBUTION WIDTH CV 16.1 % (11.5-14.5); RED CELL DISTRIBUTION WIDTH SD 54.4 fL (36.4-46.3); WHITE BLOOD COUNT 10.57 K/uL (4.8-10.8)
[2017-11-18] MEDS: CARVEDILOL 25 MG TAB PO SCH (07:30)
[2017-11-18] MEDS ORDERED: METOPROLOL TARTRATE 1 MG/ML VIAL IV STA (08:10)
[2017-11-18] MEDS ORDERED: HYDROmorphone INJ 1 MG/ML SYR IV STA (08:10)
[2017-11-18] MEDS: HydrALAZINE 10 MG TAB PO SCH ×3 (08:24→21:00)
[2017-11-18] MEDS: POTASSIUM CHLORIDE 20 MEQ TABCR PO SCH (08:24)
[2017-11-18] MEDS: ASPIRIN 81 MG ECTAB PO SCH (08:24)
[2017-11-18] MEDS: FERROUS GLUCONATE 324 MG TAB PO SCH (08:24)
[2017-11-18] MEDS: ATORVASTATIN 20 MG TAB PO SCH (08:25)
[2017-11-18] MEDS: POLYETHYLENE (MIRALAX) 17 GM PACK PO SCH (08:25)
[2017-11-18] MEDS: LISINOPRIL 20 MG TAB PO SCH (08:25)
[2017-11-18] MEDS: MAGNESIUM OXIDE 400 MG TAB PO SCH (08:25)
[2017-11-18] MEDS: ESCITALOPRAM OXALATE 10 MG TAB PO SCH (08:25)
[2017-11-18] MEDS ORDERED: MEPERIDINE HCL 25 MG/ML CARP IV PRN (08:30)
[2017-11-18] MEDS ORDERED: ATROPINE SULFATE 0.1 MG/ML 5ML SYR IV PRN (08:30)
[2017-11-18] MEDS ORDERED: HYDROmorphone INJ 1 MG/ML SYR IV PRN (08:30)
[2017-11-18] MEDS ORDERED: FENTANYL CITRATE INJ 50 MCG/1 ML 2 ML VIAL IV PRN (08:30)
[2017-11-18] MEDS ORDERED: ONDANSETRON INJ 2 MG/ML 2 ML VIAL IV PRN ×2 (08:30→14:15)
[2017-11-18] MEDS ORDERED: LABETALOL HCL IV 5 MG/ML 20ML IV PRN (08:30)
[2017-11-18] MEDS ORDERED: EpHEDrine SULFATE INJ 50 MG/ML AMP IV PRN (08:30)
--- NOTE | 2017-11-18 08:39 | Progress Note ---
Subjective Date of Service: Nov 18, 2017. Subjective Pt evaluation today including: conversation w/ patient, physical exam, lab review, review of studies, review of inpatient medication list Saw/examined the patient in room 237 Underlying dementia noted She is yelling out; presumably with pain, though when talking to patient; she does converse without pain Problem List Medical Problems: (1) Hypertension Status: Acute (2) Intertrochanteric fracture of left hip Status: Acute Review of Systems difficult to obtain due to patient's mental status Medications Current Inpatient Medications Medications (Trade) Dose Ordered Sig/Helio Route Start Time Stop Time Status Last Admin Dose Admin Carvedilol (Coreg Tab) 25 mg BIDM PO 11/17/17 16:45 12/17/17 16:44 11/17/17 16:20 25 MG Acetaminophen (Tylenol Tab) 650 mg Q4H PRN PO 11/17/17 05:30 12/17/17 05:29 Nitroglycerin (Nitrostat Tab) 0.4 mg UD PRN SL 11/17/17 05:30 12/17/17 05:29 Aspirin (Ecotrin Tab) 81 mg DAILY PO 11/17/17 09:00 12/17/17 08:59 Atorvastatin Calcium (Lipitor Tab) 20 mg DAILY PO 11/17/17 09:00 12/17/17 08:59 Escitalopram Oxalate (Lexapro Tab) 10 mg DAILY PO 11/17/17 09:00 12/17/17 08:59 Ferrous Gluconate (Ferrous Gluconate Tab) 324 mg QAM PO 11/17/17 09:00 12/17/17 08:59 Hydralazine HCl (Apresoline Tab) 10 mg QID PO 11/17/17 13:00 12/17/17 12:59 11/17/17 21:04 10 MG Lisinopril (Zestril Tab) 30 mg DAILY PO 11/17/17 09:00 12/17/17 08:59 11/17/17 07:56 30 MG Tramadol HCl (Ultram Tab) 50 mg Q4H PRN PO 11/17/17 05:30 12/17/17 05:29 Trazodone HCl (Desyrel Tab) 25 mg HS PO 11/17/17 21:00 12/17/17 20:59 11/17/17 21:03 25 MG Polyethylene (Miralax Powder Packet) 17 gm DAILY PO 11/17/17 09:00 12/17/17 08:59 Prochlorperazine Edisylate 5 mg/ Syringe 5 ml @ 5 mls/min Q6H PRN IV 11/17/17 05:30 12/17/17 05:29 Naloxone HCl (Narcan Inj) 0.1 mg PRN PRN IV 11/17/17 05:30 12/17/17 05:29 Senna/Docusate Sodium (Senokot S Tab) 2 tab HS PO 11/17/17 21:00 12/17/17 20:59 11/17/17 21:03 2 TAB Magnesium Hydroxide (Milk Of Magnesia Susp) 30 ml DAILY PRN PO 11/17/17 05:30 12/17/17 05:29 Bisacodyl (Dulcolax Supp) 10 mg DAILY PRN PA 11/17/17 05:30 12/17/17 05:29 Sodium Biphosphate/ Sodium Phosphate (Fleet Enema) 132 ml PRN PRN PA 11/17/17 05:30 Haloperidol Lactate (Haldol Inj) 2 mg Q2H PRN IM 11/17/17 07:00 12/17/17 06:59 Haloperidol (Haldol Tab) 2 mg Q4H PRN PO 11/17/17 07:45 12/17/17 06:59 11/17/17 23:02 2 MG Hydromorphone HCl (Dilaudid Inj) 1 mg Q3HWA PRN IV 11/17/17 09:45 12/01/17 09:44 11/18/17 05:49 1 MG Magnesium Oxide (Mag-Ox Tab) 400 mg DAILY PO 11/18/17 09:00 12/18/17 08:59 Potassium Chloride (Klor-Con Tab) 20 meq QAM PO 11/18/17 09:00 12/18/17 08:59 Fentanyl Citrate (Fentanyl Inj) 50 mcg Q5M PRN IV 11/18/17 08:30 11/18/17 13:00 Hydromorphone HCl (Dilaudid Inj) 0.5 mg Q5M PRN IV 11/18/17 08:30 11/18/17 13:00 Meperidine HCl (Demerol Inj) 25 mg Q5M PRN IV 11/18/17 08:30 11/18/17 13:00 Ondansetron HCl (Zofran Inj) 4 mg ONE PRN IV 11/18/17 08:30 11/18/17 13:00 Labetalol HCl (Normodyne IV) 5 mg Q5M PRN IV 11/18/17 08:30 11/18/17 13:00 Ephedrine Sulfate (EpHEDrine SULFATE INJ) 5 mg Q5M PRN IV 11/18/17 08:30 11/18/17 13:00 Atropine Sulfate (Atropine Sulfate 0.1mg/ml Inj) 0.5 mg Q1M PRN IV 11/18/17 08:30 11/18/17 13:00 Objective Vital Signs Date Time Temp Pulse Resp B/P (MAP) Pulse Ox O2 Delivery O2 Flow Rate FiO2 11/18/17 08:17 77 193/78 11/18/17 04:00 Nasal Cannula 4.0 11/18/17 03:53 36.7 69 20 169/69 (102) 90 Nasal Cannula 3.0 11/17/17 23:59 Nasal Cannula 3.0 11/17/17 23:32 37.2 70 22 167/66 (99) 90 Nasal Cannula 2.0 11/17/17 20:00 Nasal Cannula 2.0 11/17/17 19:02 37.1 72 16 137/74 (95) 94 Nasal Cannula 2.0 11/17/17 16:02 36.9 67 20 163/80 (107) 94 Nasal Cannula 2.0 11/17/17 16:00 Nasal Cannula 2.0 11/17/17 12:02 36.8 66 18 186/73 (110) 95 11/17/17 12:00 Nasal Cannula 2.0 11/17/17 08:52 176/73 (107) Physical Exam General Appearance: + mild distress, + pertinent finding (underlying dementia; confusion) Respiratory/Chest: no respiratory distress, no accessory muscle use, + rhonchi Cardiovascular: regular rate, rhythm, no edema Laboratory Results Last 24 Hours Test 11/17/17 10:37 11/18/17 05:19 Activated Partial Thromboplast Time 24.7 SECONDS Partial Thromboplastin Ratio 1.0 White Blood Count 10.57 K/uL Red Blood Count 3.60 M/uL Hemoglobin 10.4 g/dL Hematocrit 33.2 % Mean Corpuscular Volume 92.2 fL Mean Corpuscular Hemoglobin 28.9 pg Mean Corpuscular Hemoglobin Concent 31.3 g/dl Platelet Count 231 K/uL Mean Platelet Volume 10.4 fL Neutrophils (%) (Auto) 70.4 % Lymphocytes (%) (Auto) 17.8 % Monocytes (%) (Auto) 10.2 % Eosinophils (%) (Auto) 0.6 % Basophils (%) (Auto) 0.7 % Neutrophils # (Auto) 7.45 K/uL Lymphocytes # (Auto) 1.88 K/uL Monocytes # (Auto) 1.08 K/uL Eosinophils # (Auto) 0.06 K/uL Basophils # (Auto) 0.07 K/uL RDW Standard Deviation 54.4 fL RDW Coefficient of Variation 16.1 % Immature Granulocyte % (Auto) 0.3 % Immature Granulocyte # (Auto) 0.03 K/uL Sodium Level 139 mmol/L Potassium Level 4.5 mmol/L Chloride Level 103 mmol/L Carbon Dioxide Level 30 mmol/L Anion Gap 6.0 mmol/L Blood Urea Nitrogen 15 mg/dl Creatinine 0.85 mg/dl Est Creatinine Clear Calc Drug Dose 38.8 ml/min Estimated GFR () 74.5 Estimated GFR (Non- 64.3 BUN/Creatinine Ratio 17.2 Random Glucose 185 mg/dl Calcium Level 9.2 mg/dl Assessment and Plan This is an 82 year old female with a PMH of CAD s/p CABG, ischemic cardiomyopathy and chronic systolic CHF, uncontrolled HTN, depression/anxiety, anemia - presents with a fall and subsequent hip fracture Multiple Falls due to Ambulatory Dysfunction L Femoral Neck Fracture 11/18 plan for surgical repair today in the OR will give an extra dose of Dilaudid for pain appreciate cardiology input - high risk for surgery 11/17 patient presents to the hospital due to multiple falls from [facility] last fall caused significant L hip pain; upon presentation had imaging confirming fracture orthopedics input appreciated - to go for surgery in AM (11/18) cardiology consulted for clearance; she is high risk for surgery, but for quality of life, will proceed Plavix is held, will restart on 11/19 anesthesia also consulted; patient may need a one day stay in ICU post- operatively Altered Mental Status patient's family stating that she has not been the same mentally since her CABG in September Head CT suggests chronic small vessel changes may need to increase statin and possibly aspirin dose - but will refrain from making changes until after surgery CAD s/p CABG recent CABG in September 2017 continue current cardiac meds (hold Plavix for surgery) repeat echo pending cardiology consulted Uncontrolled HTN difficult to control blood pressure, likely worsened secondary to pain as per daughter, blood pressure has been an issue for over 4 months she is on Coreg; would be hesitant to increase this due to intermittent low HRs She is on Hydralazine 10mg QID and Lisinopril 30mg daily if blood pressure remains high, will likely increase Lisinopril to 40mg vs. adding CCB Ischemic Cardiomyopathy Chronic Systolic CHF currently euvolemic no need for any diuretics at this time Depression/Anxiety continue home medications Iron Deficiency Anemia Hgb stable, continue iron supplementation DVT ppx SCDs due to hematoma in the scalp may need chemical prophylaxis post operatively due to high risk of DVTs FULL CODE
--- NOTE | 2017-11-18 09:01 | ECHOCARDIOGRAM REPORT ---
*NOTICE TO RECEIVING CONSTITUTION PARTY AGENCY This information is strictly Confidential and protected under [place] law. [place] law prohibits you from making any further disclosure of this information unless further disclosure is expressly permitted by the written consent of the person to whom it pertains or is authorized by law. A general authorization for the release of medical or other information is not sufficient for this purpose. Hospital accepts no responsibility if the information is made available to any other person, INCLUDING THE PATIENT. Interpretation Summary * Name: TOBIN DELGADO Study Date: 11/17/2017 01:11 PM BP: 186/73 mmHg * Patient Location: C.2T\S\S238\S\1 HR: 66 * : 1935 (M/d/yyyy) Gender: Female Height: 62 in * Age: 82 yrs Ethnicity: CA Weight: 107 lb * Ordering Physician: Tk Langford * Performed By: Majo Cerna RDCS * * Reason For Study: Syncope * BSA: 1.5 m2 * -- Conclusions -- * The left ventricle is normal in size. * There is moderate concentric left ventricular hypertrophy. * There is mild apical wall hypokinesis. * Ejection Fraction = 55-60%. * The right ventricular systolic function is normal. * There is mild mitral regurgitation. * There is mild tricuspid regurgitation. Procedure Details * A complete two-dimensional transthoracic echocardiogram was performed (2D, M-mode, Doppler and color flow Doppler). Left Ventricle * The left ventricle is normal in size. * There is no thrombus. * There is moderate concentric left ventricular hypertrophy. * Ejection Fraction = 55-60%. * There is mild apical wall hypokinesis. Right Ventricle * The right ventricle is normal size. * The right ventricular systolic function is normal. Atria * The left atrial size is normal. * Right atrial size is normal. * No ASD detected; PFO is not assessed. Mitral Valve * There is mild mitral annular calcification. * The mitral valve leaflets appear thickened, but open well. * There is mild mitral regurgitation. Tricuspid Valve * The tricuspid valve is not well visualized, but is grossly normal. * There is mild tricuspid regurgitation. Aortic Valve * Aortic valve sclerosis mild, without significant aortic valvular stenosis. * The aortic valve opens well. * There is no significant aortic regurgitation. Great Vessels * The aortic root and proximal ascending aorta are normal sized. Pericardium/Pleural * There is no pericardial effusion. Left Ventricular Diastolic Function * Diastolic dysfunction, Grade II (pseudonormalization pattern). MMode 2D Measurements and Calculations IVSd 1.4 cm IVSs 1.6 cm LVIDd 4.4 cm LVIDs 3.1 cm LVPWd 1.3 cm LVPWs 1.4 cm IVS/LVPW 1.1 FS 29.0 % EDV(Teich) 87.3 ml ESV(Teich) 38.5 ml EF(Teich) 56.0 % EDV(cubed) 84.7 ml ESV(cubed) 30.3 ml EF(cubed) 64.2 % % IVS thick 13.7 % % LVPW thick 12.1 % LV mass(C)d 222.9 grams LV mass(C)dI 152.1 grams/m\S\2 LV mass(C)s 167.2 grams LV mass(C)sI 114.1 grams/m\S\2 SV(Teich) 48.9 ml SI(Teich) 33.4 ml/m\S\2 SV(cubed) 54.4 ml SI(cubed) 37.1 ml/m\S\2 Ao root diam 2.8 cm Ao root area 6.0 cm\S\2 ACS 1.7 cm LA dimension 3.7 cm LA/Ao 1.4 LVAd ap4 24.8 cm\S\2 LVLd ap4 7.3 cm EDV(MOD-sp4) 71.1 ml EDV(sp4-el) 71.7 ml LVAs ap4 15.2 cm\S\2 LVLs ap4 6.3 cm ESV(MOD-sp4) 30.8 ml ESV(sp4-el) 31.3 ml EF(MOD-sp4) 56.7 % EF(sp4-el) 56.4 % LVAd ap2 25.6 cm\S\2 LVLd ap2 8.1 cm EDV(MOD-sp2) 71.3 ml EDV(sp2-el) 68.4 ml LVAs ap2 14.7 cm\S\2 LVLs ap2 7.0 cm ESV(MOD-sp2) 28.2 ml ESV(sp2-el) 25.9 ml EF(MOD-sp2) 60.5 % EF(sp2-el) 62.1 % LVLd %diff 10.5 % EDV(MOD-bp) 73.9 ml LVLs %diff 10.3 % ESV(MOD-bp) 30.7 ml EF(MOD-bp) 58.4 % SV(MOD-sp4) 40.3 ml SI(MOD-sp4) 27.5 ml/m\S\2 SV(MOD-sp2) 43.1 ml SI(MOD-sp2) 29.4 ml/m\S\2 SV(MOD-bp) 43.2 ml SI(MOD-bp) 29.5 ml/m\S\2 SV(sp4-el) 40.4 ml SI(sp4-el) 27.6 ml/m\S\2 SV(sp2-el) 42.5 ml SI(sp2-el) 29.0 ml/m\S\2 Doppler Measurements and Calculations MV E max lola 100.3 cm/sec MV A max lola 92.2 cm/sec MV E/A 1.1 MV dec time 0.28 sec Ao V2 max 153.0 cm/sec Ao max PG 9.4 mmHg Ao max PG (full) 2.6 mmHg LV V1 max PG 6.8 mmHg LV V1 max 130.5 cm/sec PA V2 max 110.0 cm/sec PA max PG 5.0 mmHg TR max lola 219.6 cm/sec
--- NOTE | 2017-11-18 09:26 | Orthopedic Progress Note ---
Orthopedic Progress Note Date of Service Nov 18, 2017. Subjective Additional Notes: Patient seen at bedside with son, comfortable, no acute issues overnight. Objective LLE: NVSI +EHL/FHL/TA/GS SILT grossly, short and externally rotated, compartments soft NT, skin intact. Date Time Temp Pulse Resp B/P (MAP) Pulse Ox O2 Delivery O2 Flow Rate FiO2 11/18/17 09:00 37.9 56 20 139/61 (87) 96 Nasal Cannula 4.0 11/18/17 08:17 77 193/78 11/18/17 07:36 37.0 76 20 193/78 (116) 93 Nasal Cannula 4.0 11/18/17 04:00 Nasal Cannula 4.0 11/18/17 03:53 36.7 69 20 169/69 (102) 90 Nasal Cannula 3.0 11/17/17 23:59 Nasal Cannula 3.0 11/17/17 23:32 37.2 70 22 167/66 (99) 90 Nasal Cannula 2.0 11/17/17 20:00 Nasal Cannula 2.0 11/17/17 19:02 37.1 72 16 137/74 (95) 94 Nasal Cannula 2.0 11/17/17 16:02 36.9 67 20 163/80 (107) 94 Nasal Cannula 2.0 11/17/17 16:00 Nasal Cannula 2.0 11/17/17 12:02 36.8 66 18 186/73 (110) 95 11/17/17 12:00 Nasal Cannula 2.0 Laboratory Results 24 Hours: Test 11/18/17 05:19 White Blood Count 10.57 K/uL Red Blood Count 3.60 M/uL Hemoglobin 10.4 g/dL Hematocrit 33.2 % Mean Corpuscular Volume 92.2 fL Mean Corpuscular Hemoglobin 28.9 pg Mean Corpuscular Hemoglobin Concent 31.3 g/dl Platelet Count 231 K/uL Mean Platelet Volume 10.4 fL Neutrophils (%) (Auto) 70.4 % Lymphocytes (%) (Auto) 17.8 % Monocytes (%) (Auto) 10.2 % Eosinophils (%) (Auto) 0.6 % Basophils (%) (Auto) 0.7 % Neutrophils # (Auto) 7.45 K/uL Lymphocytes # (Auto) 1.88 K/uL Monocytes # (Auto) 1.08 K/uL Eosinophils # (Auto) 0.06 K/uL Basophils # (Auto) 0.07 K/uL Assessment & Plan Assessment: Left displaced basicervical femoral neck fracture -82yo Female with displaced left basicervical femoral neck fracture sustained after a fall. Pending medical clearance I indicated the patient for left cephalo-medullary nail. The family and patient were informed of the risks and benefits of surgery, which included but not limited to infection, bleeding, blood clots, damage to nerves, vessels, bone and soft tissue, leg length discrepancy, malunion, non union, need for additional surgery and . The patients family collectively chose to move forward with surgical intervention and informed consent was obtained. The patient is cleared by cardiology to proceed with surgery. Plan was for am however currently delayed due to emergent general surgery cases, will proceed as soon as OR available. Maintain NPO. -Bedrest -Brooks -Pain control -NWB LLE -NPO after midnight -hold anticoagulation for surgery
[2017-11-18] MEDS ORDERED: MoRPHine SULFATE 2 MG/ML CARP IV STA (10:56)
[2017-11-18] MEDS ORDERED: MoRPHine SULFATE 2 MG/ML CARP ONE (11:03)
[2017-11-18] MEDS ORDERED: MIDAZOLAM HCL 1 MG/ML 2ML VIAL ONE (11:47)
[2017-11-18] MEDS ORDERED: FENTANYL CITRATE INJ 50 MCG/1 ML 2 ML VIAL ONE ×2 (11:47→12:29)
[2017-11-18] MEDS ORDERED: BUPIVACAINE/EPINEPHRINE 0.5% MPF 1:200,000 30 ML VIAL ONE (12:09)
[2017-11-18] MEDS ORDERED: BUPIVACAINE 0.5 % 5 MG/1 ML MPF 30ML VIAL ONE (12:10)
[2017-11-18] MEDS ORDERED: CEFAZOLIN 2000MG IV PUSH 15 ML IV SCH (12:15)
--- NOTE | 2017-11-18 13:57 | [facility] Post Operative Brief Note ---
Immediate Operative Summary Operative Date Nov 18, 2017. Pre-Operative Diagnosis Left displaced basicervical femoral neck fracture Post-Operative Diagnosis Left displaced basicervical femoral neck fracture Procedure(s) Performed Left hip cephalomedullary nail Surgeon Dr. James Orthotic Practitioner Surgeon(s) none Estimated Blood Loss 75ml Findings Consistent with Post-Op Diagnosis Fluids (cc crystalloids) 500 Specimens none per surgeon Drains None Anesthesia Type General Complication(s) none Disposition Accompanied Pt To Recover: yes Disposition: Recovery Room / PACU
[2017-11-18] MEDS ORDERED: OXYCODONE HCL IR 5 MG TAB (IMMEDIATE RELEASE) PO PRN (14:15)
[2017-11-18] MEDS ORDERED: NALOXONE HCL 0.4 MG/1 ML VIAL/CARP IV PRN (14:15)
[2017-11-18] MEDS ORDERED: ONDANSETRON INJ 2 MG/ML 2 ML VIAL ONE (14:20)
[2017-11-18] MEDS ORDERED: NEOSTIGMINE METHYLSULFATE 5 MG/5 ML SYR ONE (14:20)
[2017-11-18] MEDS ORDERED: EpHEDrine SULFATE 50MG/5ML SYR ONE (14:20)
[2017-11-18] MEDS ORDERED: ROCURONIUM BROMIDE 10 MG/ML 5 ML VIAL IV ONE (14:20)
[2017-11-18] MEDS ORDERED: PROPOFOL IV EMULSION 10 MG/ML 20 ML VIAL IV ONE (14:20)
[2017-11-18] MEDS ORDERED: PHENYLEPHRINE 100MCG/ML 5ML SYR ONE (14:20)
[2017-11-18] MEDS ORDERED: LIDOCAINE HCL 2% 2 ML VIAL (20MG/ML) ONE (14:20)
[2017-11-18] MEDS ORDERED: GLYCOPYRROLATE INJ 0.2 MG/ML VIAL ONE (14:20)
[2017-11-18] MEDS ORDERED: LABETALOL HCL IV 5 MG/ML 20ML IV ONE (14:34)
--- NOTE | 2017-11-18 14:51 | DIAGNOSTIC IMAGING REPORT ---
LEFT HIP 2 VIEWS CLINICAL HISTORY: Postoperative examination. FINDINGS: AP and crosstable lateral views of the left hip are compared to study dated 11/17/2017. The skeletal structures are osteopenic. Intertrochanteric and intramedullary nails transfix an intertrochanteric fracture with scientologist of near-anatomic alignment. A single cortical lag screw transfixes the distal end of the intramedullary nail. There is minimally distracted fracture through the base of the greater trochanter. There are expected postoperative changes overlying the left hip including skin clips, subcutaneous gas, and soft tissue swelling. The visualized left hemipelvis appears intact. The imaged left hemipelvis appears intact. Atherosclerotic calcification is seen in the femoral artery. IMPRESSION: 1. There are expected postoperative changes status post open reduction and internal fixation of a left femoral fracture with scientologist of near anatomic alignment. 2. There is a minimally distracted fracture through the base of the greater trochanter. Electronically signed by: Orion Bearden M.D. 11/18/2017 2:50 PM Dictated Date/Time: 11/18/2017 2:48 PM
--- NOTE | 2017-11-18 14:53 | DIAGNOSTIC IMAGING REPORT ---
INTRAOPERATIVE RADIOGRAPHS CLINICAL HISTORY: Open reduction and internal fixation of the left hip. Fluoroscopy time: 116 seconds. FINDINGS: 5 spot fluoroscopic views of the left hip are correlated with radiographs dated 11/17/2017. Intertrochanteric and intramedullary nails have been placed, transfixing an intertrochanteric fracture. Near-anatomic alignment has been restored. A single cortical lag screw transfixes the distal end of the intramedullary nail. IMPRESSION: Intraoperative images from open reduction and internal fixation of a left femoral fracture as above. Electronically signed by: Orion Bearden M.D. 11/18/2017 2:51 PM Dictated Date/Time: 11/18/2017 2:50 PM
--- NOTE | 2017-11-18 15:10 | Orthopedic Progress Note ---
Orthopedic Progress Note Date of Service Nov 18, 2017. Subjective Additional Notes: Postoperative progress note Patient was seen in the PACU holding area, comfortable, stable condition, pain well controlled. Still waking up from anesthesia and does not follow commands however actively moving extremities. Objective No apparent distress Left lower extremity is neurovascularly sensory intact positive actively wiggles toes however does not follow commands, limited a physical exam. Compartments soft nontender, dressings clean dry and intact. Leg lengths equal. Date Time Temp Pulse Resp B/P (MAP) Pulse Ox O2 Delivery O2 Flow Rate FiO2 11/18/17 14:41 198/86 11/18/17 14:38 84 96 11/18/17 14:38 84 11/18/17 14:36 196/91 11/18/17 14:34 176/98 11/18/17 14:33 82 11/18/17 14:33 82 99 11/18/17 14:31 198/83 11/18/17 14:28 79 99 11/18/17 14:28 79 11/18/17 14:27 80 11/18/17 14:27 80 172/85 99 11/18/17 14:22 77 99 11/18/17 14:22 78 11/18/17 14:21 181/81 11/18/17 14:17 77 11/18/17 14:17 77 99 11/18/17 14:16 186/83 11/18/17 14:13 184/79 11/18/17 14:12 36.8 77 16 184/79 99 Mask 10 11/18/17 09:00 37.9 56 20 139/61 (87) 96 Nasal Cannula 4.0 11/18/17 08:17 77 193/78 11/18/17 08:00 Nasal Cannula 4.0 11/18/17 07:36 37.0 76 20 193/78 (116) 93 Nasal Cannula 4.0 11/18/17 04:00 Nasal Cannula 4.0 11/18/17 03:53 36.7 69 20 169/69 (102) 90 Nasal Cannula 3.0 11/17/17 23:59 Nasal Cannula 3.0 11/17/17 23:32 37.2 70 22 167/66 (99) 90 Nasal Cannula 2.0 11/17/17 20:00 Nasal Cannula 2.0 11/17/17 19:02 37.1 72 16 137/74 (95) 94 Nasal Cannula 2.0 11/17/17 16:02 36.9 67 20 163/80 (107) 94 Nasal Cannula 2.0 11/17/17 16:00 Nasal Cannula 2.0 Laboratory Results 24 Hours: Test 11/18/17 05:19 White Blood Count 10.57 K/uL Red Blood Count 3.60 M/uL Hemoglobin 10.4 g/dL Hematocrit 33.2 % Mean Corpuscular Volume 92.2 fL Mean Corpuscular Hemoglobin 28.9 pg Mean Corpuscular Hemoglobin Concent 31.3 g/dl Platelet Count 231 K/uL Mean Platelet Volume 10.4 fL Neutrophils (%) (Auto) 70.4 % Lymphocytes (%) (Auto) 17.8 % Monocytes (%) (Auto) 10.2 % Eosinophils (%) (Auto) 0.6 % Basophils (%) (Auto) 0.7 % Neutrophils # (Auto) 7.45 K/uL Lymphocytes # (Auto) 1.88 K/uL Monocytes # (Auto) 1.08 K/uL Eosinophils # (Auto) 0.06 K/uL Basophils # (Auto) 0.07 K/uL Assessment & Plan Assessment: Status post left hip cephalo-medullary nail. Plan: -Ancef x 24 -toe touch weight bearing LLE -PT/OT -Pain control -DVT ppx - restart plavix and start 81mg aspirin daily -PO XR L Hip: Well aligned well fixed cephalomedullary nail. -AM labs -PO Tele vs ICU
[2017-11-18] MEDS ORDERED: SODIUM CHLORIDE 0.9% 1000ML 1,000 ML IV SCH (15:30)
--- NOTE | 2017-11-18 15:33 | DIAGNOSTIC IMAGING REPORT ---
SINGLE VIEW CHEST CLINICAL HISTORY: Code purple. FINDINGS: An AP, portable, upright chest radiograph is compared to study dated 11/17/2017. The examination is degraded by portable technique and patient rotation. The patient is status post midline sternotomy. The heart is enlarged and there is atherosclerotic calcification of the thoracic aorta. The pulmonary vasculature is noncongested. Consolidative changes at the right lung base, likely represent atelectasis. Mild atelectasis is seen at the left lung base. No large pleural effusion or pneumothorax is seen. The skeletal structures are osteopenic. The bony thorax is grossly intact. IMPRESSION: 1. Cardiomegaly without radiographic evidence of congestive failure. 2. Airspace consolidation at the right lung base is new from yesterday and likely represents atelectasis. Correlate clinically for evidence of a superimposed infectious/inflammatory pneumonitis. Electronically signed by: Orion Bearden M.D. 11/18/2017 3:31 PM Dictated Date/Time: 11/18/2017 3:30 PM
--- NOTE | 2017-11-18 15:54 | Anesthesiology Progress Note ---
Anesthesia Post Op Note Date & Time Nov 18, 2017 at 15:40 Vital Signs Pain Intensity: 0 Vital Signs Past 12 Hours Date Time Temp Pulse Resp B/P (MAP) Pulse Ox O2 Delivery O2 Flow Rate FiO2 11/18/17 15:37 37.2 11/18/17 15:28 78 91 11/18/17 15:28 78 205/73 11/18/17 15:23 76 8 11/18/17 15:23 76 8 96 11/18/17 15:22 197/101 11/18/17 15:18 76 17 99 11/18/17 15:18 77 17 11/18/17 15:13 78 11 11/18/17 15:13 78 11 97 11/18/17 15:12 76 16 99 11/18/17 15:12 76 16 11/18/17 15:11 199/95 11/18/17 15:08 195/89 11/18/17 15:07 78 14 11/18/17 15:07 78 14 96 11/18/17 15:02 79 13 11/18/17 15:02 80 13 96 11/18/17 14:57 83 11/18/17 14:57 83 188/121 87 11/18/17 14:52 88 12 11/18/17 14:52 88 12 206/112 90 11/18/17 14:47 83 16 196/82 91 11/18/17 14:47 83 16 11/18/17 14:42 83 11/18/17 14:42 83 92 11/18/17 14:41 198/86 11/18/17 14:38 84 96 11/18/17 14:38 84 11/18/17 14:36 196/91 11/18/17 14:34 176/98 11/18/17 14:33 82 11/18/17 14:33 82 99 11/18/17 14:31 198/83 11/18/17 14:28 79 99 11/18/17 14:28 79 11/18/17 14:27 80 11/18/17 14:27 80 172/85 99 11/18/17 14:22 77 99 11/18/17 14:22 78 11/18/17 14:21 181/81 11/18/17 14:17 77 11/18/17 14:17 77 99 11/18/17 14:16 186/83 11/18/17 14:13 184/79 11/18/17 14:12 36.8 77 16 184/79 99 Mask 10 11/18/17 09:00 37.9 56 20 139/61 (87) 96 Nasal Cannula 4.0 11/18/17 08:17 77 193/78 11/18/17 08:00 Nasal Cannula 4.0 11/18/17 07:36 37.0 76 20 193/78 (116) 93 Nasal Cannula 4.0 11/18/17 04:00 Nasal Cannula 4.0 11/18/17 03:53 36.7 69 20 169/69 (102) 90 Nasal Cannula 3.0 Notes Mental Status: alert / awake / arousable, participated in evaluation Pt Amnestic to Procedure: Yes Nausea / Vomiting: adequately controlled Pain: adequately controlled Airway Patency, RR, SpO2: stable & adequate BP & HR: stable & adequate Hydration State: stable & adequate Anesthetic Complications: no major complications apparent Pt had ORIF left femur under GETA without intraoperative problems. She was emerged and transported to PACU. Upon arrival in PACU, pt was somnolent, would open eyes to verbal stimulus. Hypertensive, receiving IV labetalol. SaO2 was 90 - 92% on 10 l/m O2 mask. After approximately 20 minutes in PACU, I witnessed abrupt fall in SaO2. Spontaneous respirations did not appreciably change. I called Code Purple and administered PPV with 100% O2 BVM. SaO2 responded from a low of 45% to 97%. Placed pt back on O2 mask and SaO2 has remained high 90s subsequently. Suspect possible mucus plug as pt has had productive cough and purulent secretions. I consulted mock up builder who agreed to admit to SICU for further care.
--- NOTE | 2017-11-18 17:23 | Critical Care Consultation ---
Critical Care Consultation Date of Consultation: Nov 18, 2017. Attending Physician: Tosha Peña DO Reason for Consultation: Acute hypoxic respiratory failure History of Present Illness Patient is an 82-year-old female who underwent left hip nailing secondary to a recent fall from standing height at her living facility with subsequent intertrochanteric fracture of the left hip. Patient was doing well postoperatively while in recovery with anesthesiology presence with a good waveform on the monitor the patient became acutely hypoxic. She required some bag valve mask ventilation and the hypoxia immediately improved. I went to the bedside and immediately assessed the patient. She had loud respirations and I proceeded with a blue protocol ultrasound. Noted that the patient had B-lines only in the posterior of her chest, there was no evidence of a tissue sign indicative of an infiltrative process. A limited echocardiogram revealed normal systolic function. Bilateral two-point compression test revealed normal compressibility of her deep veins, examination of the oral cavity revealed dry mucous membranes and I was concerned for acute upper airway obstruction secondary to mucous plugging. Respiratory therapy has nasotracheally suction the patient and respiratory therapy has been able to remove a moderate amount of mucus I was able to gain more history from the patient's daughter and son. There are 3 children one resides in [place] who was unable to be present at bedside she is an oncology nurse. In discussion of the past several months the patient underwent an evaluation for chest pain prior to [place] and was discovered to have significant cardiac disease that would be most amenable to cardiac bypass surgery. Patient went through the holidays she did not want undergo bypass surgery before [place] and then continued to put off the surgery until her daughter reports that she forced her to go and get the surgery completed. It is noted that the patient was having decreasing functional status over the weeks while she was waiting for bypass surgery. Bypass surgery was performed in [facility]. Family reports that they were concerned for possible stroke following bypass surgery as the report the patient had facial droop and difficulty with speech. Over the past 2 months they stated that the facial droop has gotten worse and she become more dysarthric. There is also noted that the patient has undergone a swallowing evaluation which recommended that the patient states diet was chopped. The patient has refused to have her food chopped however her wishes have been overridden at this point and she continues to have chopped meals. Family also notes that she has not wanted to undergo the bypass surgery, she has been following recently with this most recent fall she suffered a hip fracture and again the patient did not want to undergo surgery per family's report. Family also reports that in the interim since bypass surgery she has undergone a noncontrast CT scan of the head which revealed a stroke of undetermined chronicity Past Medical/Surgical History As noted above Family History Patient reports no known family medical history. Social History Smoking Status: Unknown if Ever Smoked Marital Status: Housing Status: lives with significant other Occupation Status: retired Allergies Coded Allergies: No Known Allergies (Unverified , 11/17/17) Home Medications Scheduled Acetaminophen (Tylenol), 500 MG PO QID Aspirin (Aspirin Ec), 81 MG PO DAILY Atorvastatin (Lipitor), 20 MG PO DAILY Carvedilol (Coreg), 25 MG PO BIDM Clopidogrel (Plavix), 75 MG PO DAILY Escitalopram (Lexapro), 10 MG PO DAILY Ferrous Gluconate (Ferrous Gluconate), 324 MG PO QAM Hydralazine Hcl (Apresoline), 10 MG PO QID Lisinopril (Zestril), 30 MG PO DAILY Magnesium Oxide (Mag-Ox), 400 MG PO DAILY Nitroglycerin (Nitrostat), 0.4 MG UT PRN Oseltamivir (Tamiflu), 75 MG PO DAILY Polyethylene Glycol 3350 (Miralax), 17 GM PO DAILY Potassium Chloride (Klor-Con M20), 20 MEQ PO QAM Trazodone Hcl (Trazodone), 25 MG PO HS Scheduled PRN Acetaminophen (Tylenol), 650 MG PO Q4H PRN for Pain or Fever Lorazepam (Ativan), 0.5 MG PO TID PRN for Anxiety Tramadol (Ultram), 50 MG PO Q4H PRN for Pain Current Inpatient Medications Current Inpatient Medications Medications (Trade) Dose Ordered Sig/Helio Route Start Time Stop Time Status Last Admin Dose Admin Carvedilol (Coreg Tab) 25 mg BIDM PO 11/17/17 16:45 12/17/17 16:44 Future Hold 11/17/17 16:20 25 MG Nitroglycerin (Nitrostat Tab) 0.4 mg UD PRN SL 11/17/17 05:30 12/17/17 05:29 Atorvastatin Calcium (Lipitor Tab) 20 mg DAILY PO 11/17/17 09:00 12/17/17 08:59 Escitalopram Oxalate (Lexapro Tab) 10 mg DAILY PO 11/17/17 09:00 12/17/17 08:59 Ferrous Gluconate (Ferrous Gluconate Tab) 324 mg QAM PO 11/17/17 09:00 12/17/17 08:59 Hydralazine HCl (Apresoline Tab) 10 mg QID PO 11/17/17 13:00 12/17/17 12:59 11/17/17 21:04 10 MG Lisinopril (Zestril Tab) 30 mg DAILY PO 11/17/17 09:00 12/17/17 08:59 11/17/17 07:56 30 MG Tramadol HCl (Ultram Tab) 50 mg Q4H PRN PO 11/17/17 05:30 12/17/17 05:29 Trazodone HCl (Desyrel Tab) 25 mg HS PO 11/17/17 21:00 12/17/17 20:59 11/17/17 21:03 25 MG Polyethylene (Miralax Powder Packet) 17 gm DAILY PO 11/17/17 09:00 12/17/17 08:59 Prochlorperazine Edisylate 5 mg/ Syringe 5 ml @ 5 mls/min Q6H PRN IV 11/17/17 05:30 12/17/17 05:29 Magnesium Hydroxide (Milk Of Magnesia Susp) 30 ml DAILY PRN PO 11/17/17 05:30 12/17/17 05:29 Bisacodyl (Dulcolax Supp) 10 mg DAILY PRN ND 11/17/17 05:30 12/17/17 05:29 Sodium Biphosphate/ Sodium Phosphate (Fleet Enema) 132 ml PRN PRN ND 11/17/17 05:30 Haloperidol Lactate (Haldol Inj) 2 mg Q2H PRN IM 11/17/17 07:00 12/17/17 06:59 Haloperidol (Haldol Tab) 2 mg Q4H PRN PO 11/17/17 07:45 12/17/17 06:59 11/17/17 23:02 2 MG Hydromorphone HCl (Dilaudid Inj) 1 mg Q3HWA PRN IV 11/17/17 09:45 12/01/17 09:44 11/18/17 16:13 0.5 MG Magnesium Oxide (Mag-Ox Tab) 400 mg DAILY PO 11/18/17 09:00 12/18/17 08:59 Potassium Chloride (Klor-Con Tab) 20 meq QAM PO 11/18/17 09:00 12/18/17 08:59 Cefazolin Sodium 15 ml @ 2.5 mls/min TODAY@1215 IV 11/18/17 12:15 11/18/17 18:00 Sodium Chloride 1,000 ml @ 85 mls/hr [id number] IV 11/18/17 15:30 12/18/17 15:29 Ondansetron HCl (Zofran Inj) 4 mg Q6H PRN IV 11/18/17 14:15 12/18/17 14:14 Acetaminophen (Tylenol Tab) 650 mg Q6H PRN PO 11/18/17 14:15 12/18/17 14:14 Oxycodone HCl (Roxicodone Immediate Rel Tab) 5 mg Q4H PRN PO 11/18/17 14:15 12/02/17 14:14 Naloxone HCl (Narcan Inj) 0.4 mg Q1M PRN IV 11/18/17 14:15 12/18/17 14:14 Senna/Docusate Sodium (Senokot S Tab) 2 tab HS PO 11/18/17 21:00 12/18/17 20:59 Clopidogrel Bisulfate (plAVix TAB) 75 mg QAM PO 11/19/17 09:00 12/19/17 08:59 Aspirin (Ecotrin Tab) 81 mg QAM PO 11/19/17 09:00 12/19/17 08:59 Cefazolin Sodium 1000 mg/Syringe 7.5 ml @ 2.5 mls/min Q8H IV 11/18/17 18:00 11/19/17 02:02 Review of Systems Unable to obtain secondary to patient's altered sensorium secondary to anesthesia Physical Exam Date Time Temp Pulse Resp B/P (MAP) Pulse Ox O2 Delivery O2 Flow Rate FiO2 11/18/17 15:49 77 15 11/18/17 15:49 77 15 201/65 97 11/18/17 15:46 188/79 11/18/17 15:44 78 14 11/18/17 15:44 78 14 97 3/4/18 15:42 184/88 3//18 15:39 84 17 3//18 15:39 85 17 97 3//18 15:37 37.2 3//18 15:36 187/160 3//18 15:34 79 17 3//18 15:34 79 17 201/71 93 3//18 15:29 78 3//18 15:29 78 184/66 91 3//18 15:28 78 91 3//18 15:28 78 205/73 3//18 15:23 76 8 3//18 15:23 76 8 96 3//18 15:22 197/101 3//18 15:18 76 17 99 //18 15:18 77 17 3//18 15:13 78 11 3/18 15:13 78 11 97 //18 15:12 76 16 99 //18 15:12 76 16 /18 15:11 199/95 //18 15:08 195/89 /18 15:07 78 14 /18 15:07 78 14 96 /18 15:02 79 13 //18 15:02 80 13 96 //18 14:57 83 3/18 14:57 83 188/121 87 3//18 14:52 88 12 3//18 14:52 88 12 206/112 90 //18 14:47 83 16 196/82 91 //18 14:47 83 16 //18 14:42 83 3//18 14:42 83 92 3//18 14:41 198/86 3//18 14:38 84 96 3//18 14:38 84 3//18 14:36 196/91 //18 14:34 176/98 3//18 14:33 82 3//18 14:33 82 99 3/4/18 14:31 198/83 3/4/18 14:28 79 99 3/4/18 14:28 79 3/4/18 14:27 80 3/4/18 14:27 80 172/85 99 3/4/18 14:22 77 99 3/4/18 14:22 78 3/4/18 14:21 181/81 11/18/17 14:17 77 11/18/17 14:17 77 99 11/18/17 14:16 186/83 11/18/17 14:13 184/79 11/18/17 14:12 36.8 77 16 184/79 99 Mask 10 11/18/17 09:00 37.9 56 20 139/61 (87) 96 Nasal Cannula 4.0 11/18/17 08:17 77 193/78 11/18/17 08:00 Nasal Cannula 4.0 11/18/17 07:36 37.0 76 20 193/78 (116) 93 Nasal Cannula 4.0 11/18/17 04:00 Nasal Cannula 4.0 11/18/17 03:53 36.7 69 20 169/69 (102) 90 Nasal Cannula 3.0 11/17/17 23:59 Nasal Cannula 3.0 11/17/17 23:32 37.2 70 22 167/66 (99) 90 Nasal Cannula 2.0 11/17/17 20:00 Nasal Cannula 2.0 11/17/17 19:02 37.1 72 16 137/74 (95) 94 Nasal Cannula 2.0 General Appearance: no apparent distress Head: normocephalic ENT: other (Dry mucous membranes) Neck: other (Upper airway sounds) Respiratory: other (B-lines bilateral posterior lung wallace limited critical care bedside ultrasound) Cardiovasular: regular rate/rhythm, normal S1S2, no M/G/R, other (Normal systolic function on bedside critical care ultrasound) Abdomen: non tender, normal bowel sounds Upper Extremities: no edema Lower Extremities: no edema, other (Negative two-point compression test via limited bedside critical care ultrasound) Neuro: decreased LOC (Secondary to postoperative anesthesia) Laboratory Results Last 24 Hours Test 11/18/17 05:19 11/18/17 15:41 White Blood Count 10.57 K/uL Red Blood Count 3.60 M/uL Hemoglobin 10.4 g/dL Hematocrit 33.2 % Mean Corpuscular Volume 92.2 fL Mean Corpuscular Hemoglobin 28.9 pg Mean Corpuscular Hemoglobin Concent 31.3 g/dl Platelet Count 231 K/uL Mean Platelet Volume 10.4 fL Neutrophils (%) (Auto) 70.4 % Lymphocytes (%) (Auto) 17.8 % Monocytes (%) (Auto) 10.2 % Eosinophils (%) (Auto) 0.6 % Basophils (%) (Auto) 0.7 % Neutrophils # (Auto) 7.45 K/uL Lymphocytes # (Auto) 1.88 K/uL Monocytes # (Auto) 1.08 K/uL Eosinophils # (Auto) 0.06 K/uL Basophils # (Auto) 0.07 K/uL RDW Standard Deviation 54.4 fL RDW Coefficient of Variation 16.1 % Immature Granulocyte % (Auto) 0.3 % Immature Granulocyte # (Auto) 0.03 K/uL Sodium Level 139 mmol/L Potassium Level 4.5 mmol/L Chloride Level 103 mmol/L Carbon Dioxide Level 30 mmol/L Anion Gap 6.0 mmol/L Blood Urea Nitrogen 15 mg/dl Creatinine 0.85 mg/dl Est Creatinine Clear Calc Drug Dose 38.8 ml/min Estimated GFR () 74.5 Estimated GFR (Non- 64.3 BUN/Creatinine Ratio 17.2 Random Glucose 185 mg/dl Calcium Level 9.2 mg/dl Bedside Glucose 193 mg/dl Diagnostic Results I have reviewed the echocardiogram dated November 18, 2017 I reviewed the chest x-ray obtained at 1530, images unavailable review the radiology report findings most consistent with atelectasis given clinical scenario Assessment & Plan Reason Critically Ill: Postoperative respiratory insufficiency, acute hypoxic respiratory failure secondary to likely mucous plugging PLAN: Neuro: Cognitive deficit * Family reports that she has become extremely disinhibited over the last 2 months which is consistent with reported finding of a frontal lobe lesion Resp: Acute hypoxemia * Nasotracheal suctioning as needed * Concern for vocal cord dysfunction versus laryngeal malacia versus acute airway obstruction secondary to mucoid impaction CV: Long-standing history of essential hypertension * Family reports that only in the last couple of months as she seen her primary care doctor and states she has likely been chronically hypertensive for years * Certainly the patient could have had a history of lacunar infarcts versus watershed type infarct associated from cerebrovascular disease secondary to long -standing hypertension * Son reports that he noticed facial droop is worse when she has been found down and they checked her blood pressure in the personal-residential and the blood pressure is around 100-110 systolic Fluids/Renal: Continue maintenance fluids ID: [id number] postoperatively, stop date included GI/Nutrition: AHA diet dental soft Heme: Anemia NOS Lovenox for DVT prophylaxis Endocrine: ICU hyperglycemia protocol CODE STATUS DO NOT RESUSCITATE DO NOT INTUBATE in the event of respiratory arrest I had an extensive discussion regarding the patient's long-term prognosis, family states that she has had significant functional decline over the past 2 months since her cardiac surgery. Patient is currently residing in a personal residential and they do not feel as if she would be safe going home and living with her . They also admit the patient has refused to participate in rehab and it is unlikely that the patient will be a candidate for acute rehab. Accordingly they do not feel it is the patient's wishes to undergo CPR in event of cardiac arrest and similarly she would not want to undergo intubation in event of respiratory arrest. They state this is clearly obvious as she was extremely distraught after the intubation and subsequent extubation following cardiac bypass surgery I discussed the case with Dr. Langford of cardiology as well as Dr. Peña. I have personally spent 100 minutes of critical care time in the direct management of this patient. This is a life/limb threatening event. This includes time spent evaluating patient, direct bedside care, chart review, placing orders, interpretation of diagnostic studies, discussion with consultants, patient, and/or family members regarding treatment decisions, as well as other required patient management activities. This time is exclusive of all separately billable procedures, and teaching time and separate from and in addition to any other critical care service time.
[2017-11-18] MEDS ORDERED: CEFAZOLIN IV 1,000 MG in DEXTROSE 5% 50ML 50 ML IV SCH (18:00)
[2017-11-18] MEDS: CEFAZOLIN IV 1,000 MG in SYRINGE 0 ML IV SCH (18:41)
[2017-11-18] MEDS: DOCUSATE SODIUM/SENNA 50/8.6MG TAB PO SCH (21:00)
[2017-11-18] MEDS: TRAZODONE HCL 50 MG TAB PO SCH (21:00)
[2017-11-19] VITALS (34 sets, daily range): BP systolic 81–300; BP diastolic 37–300; PULSE 63–94; TEMP 36.5–37.1; O2SAT 90–100
[2017-11-19] MEDS: HALOPERIDOL LACTATE 5 MG/ML 1 ML VIAL IM PRN (02:06)
[2017-11-19] MEDS ORDERED: ALBUT/IPRATROP 3MG/0.5MG NEB 3 ML VIAL INH PRN (02:15)
[2017-11-19] MEDS ORDERED: ALBUT/IPRATROP 3MG/0.5MG NEB 3 ML VIAL INH STA (02:15)
[2017-11-19] MEDS ORDERED: PIPERACILLIN/TAZOBACTAM 4.5 GM/100ML D5W IV STA (02:33)
--- NOTE | 2017-11-19 02:34 | Progress Note ---
Internal Med Progress Note Date of Service: Nov 19, 2017. Provider Documentation: Made aware by RN of increased respiratory distress around 2 AM. Coarse breath sounds, O2 sats 80s as per RN CXR bilateral infiltrates right greater than left (R sided infiltrate on postop CXR yesterday.) Purulent secretions, productive cough as per Anesthesiology postop note from yesterday. AP Hypoxemic respiratory 2 to HAP, possible aspiration Supplemental O2 Baseline ABG CS, IV Zosyn Nebs, Solu-Medrol 1 dose Will relay to AM provider. Vital Signs: Date Time Temp Pulse Resp B/P (MAP) Pulse Ox O2 Delivery O2 Flow Rate FiO2 11/19/17 06:01 67 13 156/64 (94) 96 11/19/17 05:31 67 19 151/58 (89) 96 11/19/17 05:01 68 20 150/66 (94) 96 11/19/17 04:32 66 9 97/47 (64) 96 Oxymask 4.0 11/19/17 04:01 36.5 71 12 139/65 (89) 97 Oxymask 4.0 11/19/17 04:00 Oxymask 4.0 11/19/17 03:31 69 8 129/61 (83) 98 Oxymask 4.0 11/19/17 03:12 74 9 89/37 (54) 97 Oxymask 4.0 11/19/17 03:07 74 0 81/38 (52) 96 Oxymask 4.0 11/19/17 03:01 75 22 130/63 (85) 96 Oxymask 4.0 11/19/17 02:46 77 20 97 Mask 5.0 11/19/17 02:32 78 10 300/300 (300) 96 Oxymask 4.0 11/19/17 02:02 92 12 200/179 (186) 94 Oxymask 4.0 11/19/17 01:33 94 15 187/90 (122) 91 Oxymask 4.0 11/19/17 01:01 68 11 136/63 (87) 96 Oxymask 4.0 11/19/17 00:31 63 14 125/62 (83) 96 Nasal Cannula 4.0 11/19/17 00:01 36.8 67 16 129/59 (82) 95 Nasal Cannula 4.0 11/18/17 23:59 Nasal Cannula 4.0 18 23:31 68 10 140/66 (90) 95 Nasal Cannula 4.0 11/18/17 23:01 69 12 125/63 (83) 96 Nasal Cannula 4.0 18 22:31 66 9 132/62 (85) 95 Nasal Cannula 4.0 18 22:23 68 8 136/52 (80) 95 Nasal Cannula 4.0 11/18/17 22:01 71 17 139/69 (92) 95 Nasal Cannula 4.0 18 21:31 64 15 123/71 (88) 96 Nasal Cannula 4.0 11/18/17 21:01 68 16 140/61 (87) 96 Nasal Cannula 4.0 11/18/17 20:31 74 18 143/80 (101) 95 Nasal Cannula 4.0 11/18/17 20:02 36.5 69 11 135/84 (101) 95 Nasal Cannula 4.0 11/18/17 20:00 Nasal Cannula 4.0 11/18/17 19:31 68 11 141/69 (93) 97 Nasal Cannula 4.0 11/18/17 19:01 68 11 146/59 (88) 96 Nasal Cannula 4.0 11/18/17 18:01 70 16 162/67 (98) 99 Mask 5.0 11/18/17 17:31 69 14 123/58 (79) 98 Mask 5.0 11/18/17 17:01 71 13 137/61 (86) 98 Mask 5.0 11/18/17 17:00 71 16 142/43 (76) 98 Mask 5.0 11/18/17 16:46 138/42 (74) 18 16:31 72 15 137/61 (86) 96 Mask 5.0 11/18/17 16:30 Mask 5.0 18 16:20 72 13 140/65 (90) 99 Mask 6.0 11/18/17 16:00 78 18 202/91 (128) 97 Mask 6.0 11/18/17 15:49 77 15 18 15:49 77 15 201/65 97 18 15:46 188/79 11/18/17 15:44 78 14 18 15:44 78 14 97 3/4/18 15:42 184/88 3//18 15:39 84 17 3//18 15:39 85 17 97 3//18 15:37 37.2 3/18 15:36 187/160 3//18 15:34 79 17 3//18 15:34 79 17 201/71 93 3//18 15:29 78 3//18 15:29 78 184/66 91 3//18 15:28 78 91 3//18 15:28 78 205/73 3//18 15:23 76 8 3//18 15:23 76 8 96 3//18 15:22 197/101 /18 15:18 76 17 99 //18 15:18 77 17 3/18 15:13 78 11 /18 15:13 78 11 97 //18 15:12 76 16 99 //18 15:12 76 16 /18 15:11 199/95 /18 15:08 195/89 /18 15:07 78 14 /18 15:07 78 14 96 /18 15:02 79 13 18 15:02 80 13 96 //18 14:57 83 /18 14:57 83 188/121 87 /18 14:52 88 12 /18 14:52 88 12 206/112 90 /18 14:47 83 16 196/82 91 //18 14:47 83 16 3//18 14:42 83 3//18 14:42 83 92 3//18 14:41 198/86 //18 14:38 84 96 //18 14:38 84 //18 14:36 196/91 3//18 14:34 176/98 //18 14:33 82 3//18 14:33 82 99 /4/18 14:31 198/83 //18 14:28 79 99 3/4/18 14:28 79 3//18 14:27 80 3//18 14:27 80 172/85 99 3/4/18 14:22 77 99 3//18 14:22 78 11/18/17 14:21 181/81 11/18/17 14:17 77 11/18/17 14:17 77 99 11/18/17 14:16 186/83 11/18/17 14:13 184/79 11/18/17 14:12 36.8 77 16 184/79 99 Mask 10 Lab Results: Results Past 24 Hours Test 11/18/17 15:41 11/19/17 00:38 11/19/17 02:37 11/19/17 02:40 Range/Units Bedside Glucose 193 183 70-90 mg/dl White Blood Count 12.05 4.8-10.8 K/uL Red Blood Count 3.13 4.2-5.4 M/uL Hemoglobin 9.2 12.0-16.0 g/dL Hematocrit 28.6 37-47 % Mean Corpuscular Volume 91.4 80-100 fL Mean Corpuscular Hemoglobin 29.4 25-34 pg Mean Corpuscular Hemoglobin Concent 32.2 32-36 g/dl Platelet Count 191 130-400 K/uL Mean Platelet Volume 9.6 7.4-10.4 fL Neutrophils (%) (Auto) 82.9 % Lymphocytes (%) (Auto) 10.4 % Monocytes (%) (Auto) 6.2 % Eosinophils (%) (Auto) 0.1 % Basophils (%) (Auto) 0.2 % Neutrophils # (Auto) 9.99 1.4-6.5 K/uL Lymphocytes # (Auto) 1.25 1.2-3.4 K/uL Monocytes # (Auto) 0.75 0.11-0.59 K/uL Eosinophils # (Auto) 0.01 0-0.5 K/uL Basophils # (Auto) 0.02 0-0.2 K/uL RDW Standard Deviation 52.9 36.4-46.3 fL RDW Coefficient of Variation 15.7 11.5-14.5 % Immature Granulocyte % (Auto) 0.2 % Immature Granulocyte # (Auto) 0.03 0.00-0.02 K/uL Sodium Level 140 136-145 mmol/L Potassium Level 4.1 3.5-5.1 mmol/L Chloride Level 106 98-107 mmol/L Carbon Dioxide Level 27 21-32 mmol/L Anion Gap 7.0 3-11 mmol/L Blood Urea Nitrogen 15 7-18 mg/dl Creatinine 0.76 0.60-1.20 mg/dl Est Creatinine Clear Calc Drug Dose 43.4 ml/min Estimated GFR () 85.3 Estimated GFR (Non- 73.6 BUN/Creatinine Ratio 20.2 10-20 Random Glucose 187 70-99 mg/dl Lactic Acid Level 1.6 0.4-2.0 mmol/L Calcium Level 8.4 8.5-10.1 mg/dl Magnesium Level 1.8 1.8-2.4 mg/dl Blood Gas Sample Site L Radial Bedside Blood Gas pH (LAB) 7.41 7.35-7.45 Bedside Blood Gas pCO2 (LAB) 43 35-46 mmHg Bedside Blood Gas pO2 (LAB) 90 80-95 mmHg Bedside Blood Gas HCO3 (LAB) 28 19-24 meq/L Bedside Blood Gas Total CO2 29 24-31 mEq/l Bedside Blood Gas Base Excess (LAB) 3.0 -9-1.8 meq/L Bedside Blood Gas O2 Saturation 97.0 90-95 % Jack Test Pass Oxygen Delivery Device VentiMask Bedside FiO2 45 % Microbiology Results 11/19/17 Blood Culture, Received Pending 11/19/17 Blood Culture, Received Pending
[2017-11-19 02:44] LABS: HEMATOCRIT 28.6 % (37-47); HEMOGLOBIN 9.2 g/dL (12.0-16.0); MEAN CELL VOLUME 91.4 fL (80-100); MEAN CORPUSCULAR HEMOGLOBIN 29.4 pg (25-34); MEAN CORPUSCULAR HGB CONC 32.2 g/dl (32-36); MEAN PLATELET VOLUME 9.6 fL (7.4-10.4); PLATELET COUNT 191 K/uL (130-400); RED CELL DISTRIBUTION WIDTH CV 15.7 % (11.5-14.5); RED CELL DISTRIBUTION WIDTH SD 52.9 fL (36.4-46.3); WHITE BLOOD COUNT 12.05 K/uL (4.8-10.8)
[2017-11-19] MEDS: HYDROmorphone INJ 1 MG/ML SYR IV PRN ×2 (02:44→08:01)
[2017-11-19] MEDS: CEFAZOLIN IV 1,000 MG in SYRINGE 0 ML IV SCH (02:44)
[2017-11-19] MEDS ORDERED: METHYLPREDNISOLONE IV 20 MG in SYRINGE 0 ML IV STA (02:44)
[2017-11-19 03:04] LABS: CALCIUM 8.4 mg/dl (8.5-10.1); CREATININE 0.76 mg/dl (0.60-1.20); POTASSIUM 4.1 mmol/L (3.5-5.1)
[2017-11-19 03:06] LABS: BASO % 0.2 %; BASO ABS # 0.02 K/uL (0-0.2); EOS % 0.1 %; EOS ABS # 0.01 K/uL (0-0.5); IG# 0.03 K/uL (0.00-0.02); LYMPH % 10.4 %; LYMPH ABS # 1.25 K/uL (1.2-3.4); MONO % 6.2 %; MONO ABS # 0.75 K/uL (0.11-0.59); NEUT % 82.9 %; NEUT ABS # 9.99 K/uL (1.4-6.5)
[2017-11-19] MEDS ORDERED: INSULIN ASPART 100 UNITS/ML 3 ML PEN SC ONE (03:24)
[2017-11-19] MEDS ORDERED: GLUCOSE 10 TABS/TUBE PO PRN (03:30)
[2017-11-19] MEDS ORDERED: GLUCAGON FOR INJ 1 MG VIAL SQ PRN (03:30)
[2017-11-19] MEDS ORDERED: INSULIN GLARGINE SOLOSTAR 100 UNITS/ML 3 ML PEN SC ONE (03:30)
[2017-11-19] MEDS ORDERED: DEXTROSE 50% 50 ML SYR IV PRN (03:30)
[2017-11-19] MEDS ORDERED: GLUCOSE 40% GEL 15 GM TUBE PO PRN (03:30)
[2017-11-19] MEDS ORDERED: MAGNESIUM SULFATE 1GM / D5W 1 GM in PREMIXED IN D5W 100 ML IV ONE (03:45)
[2017-11-19] MEDS ORDERED: CEFAZOLIN IV 2,000 MG in DEXTROSE 5% 50ML 50 ML IV SCH (06:00)
--- NOTE | 2017-11-19 07:05 | DIAGNOSTIC IMAGING REPORT ---
CHEST ONE VIEW PORTABLE CLINICAL HISTORY: 82 years-old Female presenting with resp distress. TECHNIQUE: Portable semiupright AP view of the chest was obtained. COMPARISON: 11/18/2017. FINDINGS: Median sternotomy wires and mediastinal surgical clips. Atherosclerosis of aortic arch. Cardiac silhouette mildly enlarged. Minimal basilar opacities greater on the right. No pleural effusion or pneumothorax. Osseous structures normal. Upper abdomen normal. IMPRESSION: 1. Minimal basilar opacities right greater than left, possibly atelectasis. 2. Borderline cardiomegaly. No evidence of volume overload or colt pulmonary edema. Electronically signed by: Yimi Francisco M.D. 11/19/2017 7:04 AM Dictated Date/Time: 11/19/2017 6:57 AM
--- NOTE | 2017-11-19 07:42 | Orthopedic Progress Note ---
Orthopedic Progress Note Date of Service Nov 19, 2017. Subjective Additional Notes: Patient seen laying in bed, confused, denies pain, no acute issues overnight. Objective NAD Agitated LLE NVSI +EHL/FHL/TA/GS SILT grossly, actively wiggles foot and toes, compartments soft NT, dressing cdi Date Time Temp Pulse Resp B/P (MAP) Pulse Ox O2 Delivery O2 Flow Rate FiO2 11/19/17 06:01 67 13 156/64 (94) 96 11/19/17 05:31 67 19 151/58 (89) 96 11/19/17 05:01 68 20 150/66 (94) 96 11/19/17 04:32 66 9 97/47 (64) 96 Oxymask 4.0 11/19/17 04:01 36.5 71 12 139/65 (89) 97 Oxymask 4.0 11/19/17 04:00 Oxymask 4.0 11/19/17 03:31 69 8 129/61 (83) 98 Oxymask 4.0 11/19/17 03:12 74 9 89/37 (54) 97 Oxymask 4.0 11/19/17 03:07 74 0 81/38 (52) 96 Oxymask 4.0 11/19/17 03:01 75 22 130/63 (85) 96 Oxymask 4.0 11/19/17 02:46 77 20 97 Mask 5.0 11/19/17 02:32 78 10 300/300 (300) 96 Oxymask 4.0 11/19/17 02:02 92 12 200/179 (186) 94 Oxymask 4.0 11/19/17 01:33 94 15 187/90 (122) 91 Oxymask 4.0 11/19/17 01:01 68 11 136/63 (87) 96 Oxymask 4.0 11/19/17 00:31 63 14 125/62 (83) 96 Nasal Cannula 4.0 11/19/17 00:01 36.8 67 16 129/59 (82) 95 Nasal Cannula 4.0 11/18/17 23:59 Nasal Cannula 4.0 11/18/17 23:31 68 10 140/66 (90) 95 Nasal Cannula 4.0 11/18/17 23:01 69 12 125/63 (83) 96 Nasal Cannula 4.0 18 22:31 66 9 132/62 (85) 95 Nasal Cannula 4.0 18 22:23 68 8 136/52 (80) 95 Nasal Cannula 4.0 18 22:01 71 17 139/69 (92) 95 Nasal Cannula 4.0 18 21:31 64 15 123/71 (88) 96 Nasal Cannula 4.0 11/18/17 21:01 68 16 140/61 (87) 96 Nasal Cannula 4.0 11/18/17 20:31 74 18 143/80 (101) 95 Nasal Cannula 4.0 11/18/17 20:02 36.5 69 11 135/84 (101) 95 Nasal Cannula 4.0 11/18/17 20:00 Nasal Cannula 4.0 11/18/17 19:31 68 11 141/69 (93) 97 Nasal Cannula 4.0 11/18/17 19:01 68 11 146/59 (88) 96 Nasal Cannula 4.0 11/18/17 18:01 70 16 162/67 (98) 99 Mask 5.0 11/18/17 17:31 69 14 123/58 (79) 98 Mask 5.0 11/18/17 17:01 71 13 137/61 (86) 98 Mask 5.0 11/18/17 17:00 71 16 142/43 (76) 98 Mask 5.0 11/18/17 16:46 138/42 (74) 11/18/17 16:31 72 15 137/61 (86) 96 Mask 5.0 11/18/17 16:30 Mask 5.0 11/18/17 16:20 72 13 140/65 (90) 99 Mask 6.0 18 16:00 78 18 202/91 (128) 97 Mask 6.0 11/18/17 15:49 77 15 18 15:49 77 15 201/65 97 18 15:46 188/79 11/18/17 15:44 78 14 11/18/17 15:44 78 14 97 11/18/17 15:42 184/88 11/18/17 15:39 84 17 11/18/17 15:39 85 17 97 11/18/17 15:37 37.2 11/18/17 15:36 187/160 3/4/18 15:34 79 17 3//18 15:34 79 17 201/71 93 3//18 15:29 78 3//18 15:29 78 184/66 91 3//18 15:28 78 91 3//18 15:28 78 205/73 3//18 15:23 76 8 3//18 15:23 76 8 96 3//18 15:22 197/101 3/18 15:18 76 17 99 3//18 15:18 77 17 3//18 15:13 78 11 3//18 15:13 78 11 97 //18 15:12 76 16 99 //18 15:12 76 16 3/18 15:11 199/95 /18 15:08 195/89 //18 15:07 78 14 /18 15:07 78 14 96 /18 15:02 79 13 /18 15:02 80 13 96 //18 14:57 83 3/18 14:57 83 188/121 87 3/18 14:52 88 12 318 14:52 88 12 206/112 90 /18 14:47 83 16 196/82 91 //18 14:47 83 16 /18 14:42 83 3//18 14:42 83 92 /18 14:41 198/86 //18 14:38 84 96 //18 14:38 84 3//18 14:36 196/91 //18 14:34 176/98 3//18 14:33 82 3//18 14:33 82 99 //18 14:31 198/83 //18 14:28 79 99 3//18 14:28 79 3//18 14:27 80 3//18 14:27 80 172/85 99 3/4/18 14:22 77 99 3/4/18 14:22 78 3/4/18 14:21 181/81 3//18 14:17 77 3//18 14:17 77 99 3//18 14:16 186/83 3//18 14:13 184/79 11/18/17 14:12 36.8 77 16 184/79 99 Mask 10 11/18/17 09:00 37.9 56 20 139/61 (87) 96 Nasal Cannula 4.0 11/18/17 08:17 77 193/78 11/18/17 08:00 Nasal Cannula 4.0 Laboratory Results 24 Hours: Test 11/19/17 02:37 White Blood Count 12.05 K/uL Red Blood Count 3.13 M/uL Hemoglobin 9.2 g/dL Hematocrit 28.6 % Mean Corpuscular Volume 91.4 fL Mean Corpuscular Hemoglobin 29.4 pg Mean Corpuscular Hemoglobin Concent 32.2 g/dl Platelet Count 191 K/uL Mean Platelet Volume 9.6 fL Neutrophils (%) (Auto) 82.9 % Lymphocytes (%) (Auto) 10.4 % Monocytes (%) (Auto) 6.2 % Eosinophils (%) (Auto) 0.1 % Basophils (%) (Auto) 0.2 % Neutrophils # (Auto) 9.99 K/uL Lymphocytes # (Auto) 1.25 K/uL Monocytes # (Auto) 0.75 K/uL Eosinophils # (Auto) 0.01 K/uL Basophils # (Auto) 0.02 K/uL Assessment & Plan Assessment: Status post left hip cephalomedullary nail. POD#1 Plan: -Ancef x 24 -toe touch weight bearing LLE -PT/OT with assistance -Pain control -DVT ppx - restart plavix and start 81mg aspirin daily -PO XR L Hip: Well aligned well fixed cephalomedullary nail. -AM labs - Hgb 9.2 -Change dressing POD#2 318 -ICU for medical management
[2017-11-19] MEDS: PIPERACILL/TAZOBAC IV 3.375 GM in DEXTROSE 5% 100ML IV SCH ×2 (08:28→16:30)
[2017-11-19] MEDS ORDERED: OLANZAPINE 10 MG/2.1 ML SDV IM SCH (09:00)
[2017-11-19] MEDS ORDERED: PIPERACILL/TAZOBAC CONSULT ACTIVE PRN (09:00)
--- NOTE | 2017-11-19 10:22 | Cardiology Follow-Up ---
Subjective Subjective Date of Service: Nov 19, 2017. Pt evaluation today including: physical exam, chart review, lab review, review of studies, review of inpatient medication list Additional Details: The patient completed surgery. Postop she had some respiratory failure that was treated easily with an Ambu bag. Otherwise her night has been unremarkable. She remains markedly confused and disoriented this morning. Problem List Medical Problems: (1) Hypertension Status: Acute (2) Intertrochanteric fracture of left hip Status: Acute Objective Vital Signs Last Vital Signs Documentation Date Time Temp Pulse Resp B/P (MAP) Pulse Ox O2 Delivery O2 Flow Rate FiO2 11/19/17 06:01 67 13 156/64 (94) 96 11/19/17 04:32 Oxymask 4.0 11/19/17 04:01 36.5 Physical Exam: General Appearance: + mild distress, + pertinent finding (underlying dementia; confusion) ENT: normal ENT inspection Neck: no adenopathy, thyroid normal, no JVD Respiratory/Chest: no respiratory distress, no accessory muscle use, + rhonchi Cardiovascular: regular rate, rhythm, no edema Abdomen: normal bowel sounds, non tender, soft Extremities: normal inspection, no pedal edema Neurologic/Psychiatric: + facial droop, + disoriented Skin: warm/dry, no rash Lymphatic: no adenopathy Assessment and Plan Impression: 1. Hip fracture status post ORIF 2. Dementia 3. Recent postoperative stroke 4. Stable coronary artery disease status post coronary artery bypass September 2017 Recommendations: Currently the patient is hemodynamically stable from a cardiac standpoint. Medications: Current Inpatient Medications Medications (Trade) Dose Ordered Sig/Helio Route Start Time Stop Time Status Last Admin Dose Admin Carvedilol (Coreg Tab) 25 mg BIDM PO 11/17/17 16:45 12/17/17 16:44 Future Hold 11/17/17 16:20 25 MG Nitroglycerin (Nitrostat Tab) 0.4 mg UD PRN SL 11/17/17 05:30 12/17/17 05:29 Atorvastatin Calcium (Lipitor Tab) 20 mg DAILY PO 11/17/17 09:00 12/17/17 08:59 Escitalopram Oxalate (Lexapro Tab) 10 mg DAILY PO 11/17/17 09:00 12/17/17 08:59 Ferrous Gluconate (Ferrous Gluconate Tab) 324 mg QAM PO 11/17/17 09:00 12/17/17 08:59 Hydralazine HCl (Apresoline Tab) 10 mg QID PO 11/17/17 13:00 12/17/17 12:59 11/17/17 21:04 10 MG Lisinopril (Zestril Tab) 30 mg DAILY PO 11/17/17 09:00 12/17/17 08:59 11/17/17 07:56 30 MG Tramadol HCl (Ultram Tab) 50 mg Q4H PRN PO 11/17/17 05:30 12/17/17 05:29 Trazodone HCl (Desyrel Tab) 25 mg HS PO 11/17/17 21:00 12/17/17 20:59 11/17/17 21:03 25 MG Polyethylene (Miralax Powder Packet) 17 gm DAILY PO 11/17/17 09:00 12/17/17 08:59 Prochlorperazine Edisylate 5 mg/ Syringe 5 ml @ 5 mls/min Q6H PRN IV 11/17/17 05:30 12/17/17 05:29 Magnesium Hydroxide (Milk Of Magnesia Susp) 30 ml DAILY PRN PO 11/17/17 05:30 12/17/17 05:29 Bisacodyl (Dulcolax Supp) 10 mg DAILY PRN ID 11/17/17 05:30 12/17/17 05:29 Sodium Biphosphate/ Sodium Phosphate (Fleet Enema) 132 ml PRN PRN ID 11/17/17 05:30 Haloperidol Lactate (Haldol Inj) 2 mg Q2H PRN IM 11/17/17 07:00 12/17/17 06:59 11/19/17 02:06 2 MG Haloperidol (Haldol Tab) 2 mg Q4H PRN PO 11/17/17 07:45 12/17/17 06:59 11/17/17 23:02 2 MG Hydromorphone HCl (Dilaudid Inj) 1 mg Q3HWA PRN IV 11/17/17 09:45 12/01/17 09:44 11/19/17 08:01 1 MG Magnesium Oxide (Mag-Ox Tab) 400 mg DAILY PO 11/18/17 09:00 12/18/17 08:59 Potassium Chloride (Klor-Con Tab) 20 meq QAM PO 11/18/17 09:00 12/18/17 08:59 Ondansetron HCl (Zofran Inj) 4 mg Q6H PRN IV 11/18/17 14:15 12/18/17 14:14 Acetaminophen (Tylenol Tab) 650 mg Q6H PRN PO 11/18/17 14:15 12/18/17 14:14 Oxycodone HCl (Roxicodone Immediate Rel Tab) 5 mg Q4H PRN PO 11/18/17 14:15 12/02/17 14:14 Naloxone HCl (Narcan Inj) 0.4 mg Q1M PRN IV 11/18/17 14:15 12/18/17 14:14 Senna/Docusate Sodium (Senokot S Tab) 2 tab HS PO 11/18/17 21:00 12/18/17 20:59 Clopidogrel Bisulfate (plAVix TAB) 75 mg QAM PO 11/19/17 09:00 12/19/17 08:59 Aspirin (Ecotrin Tab) 81 mg QAM PO 11/19/17 09:00 12/19/17 08:59 Albuterol/ Ipratropium (Duoneb) 3 ml Q2H PRN INH 11/19/17 02:15 12/19/17 02:14 Miscellaneous Information (Consult) 1 ea UD PRN N/A 11/19/17 09:00 12/19/17 08:59 Insulin Aspart (novoLOG ASPART) SLIDING SCALE If C... ACHS SC 11/19/17 11:00 12/19/17 10:59 Glucose (Glucose 40% Gel) 15-30 GRAMS 15 GRAMS... UD PRN PO 11/19/17 03:30 12/19/17 03:29 Glucose (Glucose Chew Tab) 4-8 Tablets 4 Tabl... UD PRN PO 11/19/17 03:30 12/19/17 03:29 Dextrose (Dextrose 50% 50ML Syringe) 25-50ML OF 50% DW IV FOR... UD PRN IV 11/19/17 03:30 12/19/17 03:29 Glucagon (Glucagon Inj) 1 mg UD PRN SQ 11/19/17 03:30 12/19/17 03:29 Piperacillin Sod/ Tazobactam Sod 3.375 gm/Dextrose 115 ml @ 28.75 mls/ hr Q8H IV 11/19/17 08:00 11/26/17 07:59 11/19/17 08:28 28.75 MLS/HR Olanzapine (Zyprexa Inj) 5 mg DAILY IM 11/19/17 09:00 12/19/17 08:59 Lab Results: Last 24 Hours Test 11/18/17 15:41 11/19/17 00:38 11/19/17 02:37 11/19/17 02:40 Bedside Glucose 193 mg/dl 183 mg/dl White Blood Count 12.05 K/uL Red Blood Count 3.13 M/uL Hemoglobin 9.2 g/dL Hematocrit 28.6 % Mean Corpuscular Volume 91.4 fL Mean Corpuscular Hemoglobin 29.4 pg Mean Corpuscular Hemoglobin Concent 32.2 g/dl Platelet Count 191 K/uL Mean Platelet Volume 9.6 fL Neutrophils (%) (Auto) 82.9 % Lymphocytes (%) (Auto) 10.4 % Monocytes (%) (Auto) 6.2 % Eosinophils (%) (Auto) 0.1 % Basophils (%) (Auto) 0.2 % Neutrophils # (Auto) 9.99 K/uL Lymphocytes # (Auto) 1.25 K/uL Monocytes # (Auto) 0.75 K/uL Eosinophils # (Auto) 0.01 K/uL Basophils # (Auto) 0.02 K/uL RDW Standard Deviation 52.9 fL RDW Coefficient of Variation 15.7 % Immature Granulocyte % (Auto) 0.2 % Immature Granulocyte # (Auto) 0.03 K/uL Sodium Level 140 mmol/L Potassium Level 4.1 mmol/L Chloride Level 106 mmol/L Carbon Dioxide Level 27 mmol/L Anion Gap 7.0 mmol/L Blood Urea Nitrogen 15 mg/dl Creatinine 0.76 mg/dl Est Creatinine Clear Calc Drug Dose 43.4 ml/min Estimated GFR () 85.3 Estimated GFR (Non- 73.6 BUN/Creatinine Ratio 20.2 Random Glucose 187 mg/dl Lactic Acid Level 1.6 mmol/L Calcium Level 8.4 mg/dl Magnesium Level 1.8 mg/dl Blood Gas Sample Site L Radial Bedside Blood Gas pH (LAB) 7.41 Bedside Blood Gas pCO2 (LAB) 43 mmHg Bedside Blood Gas pO2 (LAB) 90 mmHg Bedside Blood Gas HCO3 (LAB) 28 meq/L Bedside Blood Gas Total CO2 29 mEq/l Bedside Blood Gas Base Excess (LAB) 3.0 meq/L Bedside Blood Gas O2 Saturation 97.0 % Jack Test Pass Oxygen Delivery Device VentiMask Bedside FiO2 45 %
[2017-11-19] MEDS: ASPIRIN 81 MG ECTAB PO SCH (10:50)
[2017-11-19] MEDS: HydrALAZINE 10 MG TAB PO SCH ×4 (10:50→20:06)
[2017-11-19] MEDS: ESCITALOPRAM OXALATE 10 MG TAB PO SCH (10:51)
[2017-11-19] MEDS: FERROUS GLUCONATE 324 MG TAB PO SCH (10:51)
[2017-11-19] MEDS: ATORVASTATIN 20 MG TAB PO SCH (10:52)
[2017-11-19] MEDS: POTASSIUM CHLORIDE 20 MEQ TABCR PO SCH (10:52)
[2017-11-19] MEDS: POLYETHYLENE (MIRALAX) 17 GM PACK PO SCH (10:53)
[2017-11-19] MEDS: MAGNESIUM OXIDE 400 MG TAB PO SCH (10:53)
[2017-11-19] MEDS: CLOPIDOGREL BISULFATE 75 MG TAB PO SCH (10:54)
[2017-11-19] MEDS: LISINOPRIL 20 MG TAB PO SCH (10:54)
[2017-11-19] MEDS: INSULIN ASPART 100 UNITS/ML 3 ML PEN SC SCH ×3 (12:29→20:14)
--- NOTE | 2017-11-19 17:39 | Critical Care Progress Note ---
Critical Care Progress Note Date of Service Nov 19, 2017. Attending Dr. Moise Subjective Agitated and confused this AM, pulled out the radial a-line. Stable from a respiratory standpoint Objective General: Elderly female in no distress, occasionally agitated Heent: NC/AT CVS:S1S2 reg Lungs: Clear to auscultation b/l Abd: soft, non-tender Ext: Left hip dressing intact, clean FAMILY PRACTICE DOCTOR: Moves all 4 extremities, does not cooperate with exam Assessment & Plan Post-op respiratory insufficiency Left hip fx, s/p nailing CAD s/p recent CABG CVA Plan: Possible additional component of delirium Added low dose Zyprexa this AM, now mildly lethargic. Will hold off on future doses prn Haldol 2 mg Stabilized from a respiratory standpoint. Supplement O2 as needed Empiric Zosyn for aspiration PNA. Consider early de-escalation Continue ASA, Lipitor, Plavix Coreg if BP allows Soft diet DVT prophylaxis with Lovenox DNR/DNI Critical care time spent with the patient, reviewing the chart, greater than 25 minutes Consider transfer to floor tomorrow Data Medications: Current Inpatient Medications Medications (Trade) Dose Ordered Sig/Helio Route Start Time Stop Time Status Last Admin Dose Admin Carvedilol (Coreg Tab) 25 mg BIDM PO 11/17/17 16:45 12/17/17 16:44 Future Hold 11/17/17 16:20 25 MG Nitroglycerin (Nitrostat Tab) 0.4 mg UD PRN SL 11/17/17 05:30 12/17/17 05:29 Atorvastatin Calcium (Lipitor Tab) 20 mg DAILY PO 11/17/17 09:00 12/17/17 08:59 11/19/17 10:52 20 MG Escitalopram Oxalate (Lexapro Tab) 10 mg DAILY PO 11/17/17 09:00 12/17/17 08:59 11/19/17 10:51 10 MG Ferrous Gluconate (Ferrous Gluconate Tab) 324 mg QAM PO 11/17/17 09:00 12/17/17 08:59 11/19/17 10:51 324 MG Hydralazine HCl (Apresoline Tab) 10 mg QID PO 11/17/17 13:00 12/17/17 12:59 11/19/17 10:50 10 MG Lisinopril (Zestril Tab) 30 mg DAILY PO 11/17/17 09:00 12/17/17 08:59 11/19/17 10:54 30 MG Tramadol HCl (Ultram Tab) 50 mg Q4H PRN PO 11/17/17 05:30 12/17/17 05:29 Trazodone HCl (Desyrel Tab) 25 mg HS PO 11/17/17 21:00 12/17/17 20:59 11/17/17 21:03 25 MG Polyethylene (Miralax Powder Packet) 17 gm DAILY PO 11/17/17 09:00 12/17/17 08:59 11/19/17 10:53 17 GM Prochlorperazine Edisylate 5 mg/ Syringe 5 ml @ 5 mls/min Q6H PRN IV 11/17/17 05:30 12/17/17 05:29 Magnesium Hydroxide (Milk Of Magnesia Susp) 30 ml DAILY PRN PO 11/17/17 05:30 12/17/17 05:29 Bisacodyl (Dulcolax Supp) 10 mg DAILY PRN DE 11/17/17 05:30 12/17/17 05:29 Sodium Biphosphate/ Sodium Phosphate (Fleet Enema) 132 ml PRN PRN DE 11/17/17 05:30 Haloperidol Lactate (Haldol Inj) 2 mg Q2H PRN IM 11/17/17 07:00 12/17/17 06:59 11/19/17 02:06 2 MG Haloperidol (Haldol Tab) 2 mg Q4H PRN PO 11/17/17 07:45 12/17/17 06:59 11/17/17 23:02 2 MG Hydromorphone HCl (Dilaudid Inj) 1 mg Q3HWA PRN IV 11/17/17 09:45 12/01/17 09:44 11/19/17 08:01 1 MG Magnesium Oxide (Mag-Ox Tab) 400 mg DAILY PO 11/18/17 09:00 12/18/17 08:59 11/19/17 10:53 400 MG Potassium Chloride (Klor-Con Tab) 20 meq QAM PO 11/18/17 09:00 12/18/17 08:59 11/19/17 10:52 20 MEQ Ondansetron HCl (Zofran Inj) 4 mg Q6H PRN IV 11/18/17 14:15 12/18/17 14:14 Acetaminophen (Tylenol Tab) 650 mg Q6H PRN PO 11/18/17 14:15 12/18/17 14:14 Oxycodone HCl (Roxicodone Immediate Rel Tab) 5 mg Q4H PRN PO 11/18/17 14:15 12/02/17 14:14 Naloxone HCl (Narcan Inj) 0.4 mg Q1M PRN IV 11/18/17 14:15 12/18/17 14:14 Senna/Docusate Sodium (Senokot S Tab) 2 tab HS PO 11/18/17 21:00 12/18/17 20:59 Clopidogrel Bisulfate (plAVix TAB) 75 mg QAM PO 11/19/17 09:00 12/19/17 08:59 11/19/17 10:54 75 MG Aspirin (Ecotrin Tab) 81 mg QAM PO 11/19/17 09:00 12/19/17 08:59 11/19/17 10:50 81 MG Albuterol/ Ipratropium (Duoneb) 3 ml Q2H PRN INH 11/19/17 02:15 12/19/17 02:14 Miscellaneous Information (Consult) 1 ea UD PRN N/A 11/19/17 09:00 12/19/17 08:59 Insulin Aspart (novoLOG ASPART) SLIDING SCALE If C... ACHS SC 11/19/17 11:00 12/19/17 10:59 11/19/17 16:37 1 UNITS Glucose (Glucose 40% Gel) 15-30 GRAMS 15 GRAMS... UD PRN PO 11/19/17 03:30 12/19/17 03:29 Glucose (Glucose Chew Tab) 4-8 Tablets 4 Tabl... UD PRN PO 11/19/17 03:30 12/19/17 03:29 Dextrose (Dextrose 50% 50ML Syringe) 25-50ML OF 50% DW IV FOR... UD PRN IV 11/19/17 03:30 12/19/17 03:29 Glucagon (Glucagon Inj) 1 mg UD PRN SQ 11/19/17 03:30 12/19/17 03:29 Piperacillin Sod/ Tazobactam Sod 3.375 gm/Dextrose 115 ml @ 28.75 mls/ hr Q8H IV 11/19/17 08:00 11/26/17 07:59 11/19/17 16:30 28.75 MLS/HR Olanzapine (Zyprexa Inj) 5 mg DAILY IM 11/19/17 09:00 12/19/17 08:59 11/19/17 10:19 5 MG I & O: 24-Hour Column 11/20/17 08:00 Intake Total 203 ml Output Total 250 ml Balance -47 ml Vital Signs: Date Time Temp Pulse Resp B/P (MAP) Pulse Ox O2 Delivery O2 Flow Rate FiO2 11/19/17 14:33 67 17 124/72 (89) 98 Oxymask 3.0 11/19/17 14:00 70 20 146/65 (92) 97 Oxymask 3.0 11/19/17 13:00 70 14 131/68 (89) 98 Oxymask 3.0 11/19/17 12:20 Nasal Cannula 3.0 11/19/17 12:00 36.8 75 19 142/63 (89) 100 Oxymask 3.0 11/19/17 11:00 80 16 133/62 (85) 97 4.0 11/19/17 10:00 79 17 174/82 (112) 96 11/19/17 09:01 79 8 170/74 (106) 93 11/19/17 08:31 36.5 78 13 162/78 (106) 90 Nasal Cannula 4.0 11/19/17 08:00 Nasal Cannula 4.0 11/19/17 07:00 72 18 105/77 (86) 98 11/19/17 06:01 67 13 156/64 (94) 96 11/19/17 05:31 67 19 151/58 (89) 96 11/19/17 05:01 68 20 150/66 (94) 96 11/19/17 04:32 66 9 97/47 (64) 96 Oxymask 4.0 11/19/17 04:01 36.5 71 12 139/65 (89) 97 Oxymask 4.0 11/19/17 04:00 Oxymask 4.0 11/19/17 03:31 69 8 129/61 (83) 98 Oxymask 4.0 11/19/17 03:12 74 9 89/37 (54) 97 Oxymask 4.0 11/19/17 03:07 74 0 81/38 (52) 96 Oxymask 4.0 11/19/17 03:01 75 22 130/63 (85) 96 Oxymask 4.0 11/19/17 02:46 77 20 97 Mask 5.0 11/19/17 02:32 78 10 300/300 (300) 96 Oxymask 4.0 11/19/17 02:02 92 12 200/179 (186) 94 Oxymask 4.0 11/19/17 01:33 94 15 187/90 (122) 91 Oxymask 4.0 11/19/17 01:01 68 11 136/63 (87) 96 Oxymask 4.0 11/19/17 00:31 63 14 125/62 (83) 96 Nasal Cannula 4.0 11/19/17 00:01 36.8 67 16 129/59 (82) 95 Nasal Cannula 4.0 11/18/17 23:59 Nasal Cannula 4.0 11/18/17 23:31 68 10 140/66 (90) 95 Nasal Cannula 4.0 11/18/17 23:01 69 12 125/63 (83) 96 Nasal Cannula 4.0 11/18/17 22:31 66 9 132/62 (85) 95 Nasal Cannula 4.0 11/18/17 22:23 68 8 136/52 (80) 95 Nasal Cannula 4.0 11/18/17 22:01 71 17 139/69 (92) 95 Nasal Cannula 4.0 11/18/17 21:31 64 15 123/71 (88) 96 Nasal Cannula 4.0 11/18/17 21:01 68 16 140/61 (87) 96 Nasal Cannula 4.0 11/18/17 20:31 74 18 143/80 (101) 95 Nasal Cannula 4.0 11/18/17 20:02 36.5 69 11 135/84 (101) 95 Nasal Cannula 4.0 11/18/17 20:00 Nasal Cannula 4.0 11/18/17 19:31 68 11 141/69 (93) 97 Nasal Cannula 4.0 11/18/17 19:01 68 11 146/59 (88) 96 Nasal Cannula 4.0 11/18/17 18:01 70 16 162/67 (98) 99 Mask 5.0 11/18/17 17:31 69 14 123/58 (79) 98 Mask 5.0 Laboratory Results: Last 24 Hours Test 11/19/17 00:38 11/19/17 02:37 11/19/17 02:40 11/19/17 05:23 Bedside Glucose 183 mg/dl 239 mg/dl White Blood Count 12.05 K/uL Red Blood Count 3.13 M/uL Hemoglobin 9.2 g/dL Hematocrit 28.6 % Mean Corpuscular Volume 91.4 fL Mean Corpuscular Hemoglobin 29.4 pg Mean Corpuscular Hemoglobin Concent 32.2 g/dl Platelet Count 191 K/uL Mean Platelet Volume 9.6 fL Neutrophils (%) (Auto) 82.9 % Lymphocytes (%) (Auto) 10.4 % Monocytes (%) (Auto) 6.2 % Eosinophils (%) (Auto) 0.1 % Basophils (%) (Auto) 0.2 % Neutrophils # (Auto) 9.99 K/uL Lymphocytes # (Auto) 1.25 K/uL Monocytes # (Auto) 0.75 K/uL Eosinophils # (Auto) 0.01 K/uL Basophils # (Auto) 0.02 K/uL RDW Standard Deviation 52.9 fL RDW Coefficient of Variation 15.7 % Immature Granulocyte % (Auto) 0.2 % Immature Granulocyte # (Auto) 0.03 K/uL Sodium Level 140 mmol/L Potassium Level 4.1 mmol/L Chloride Level 106 mmol/L Carbon Dioxide Level 27 mmol/L Anion Gap 7.0 mmol/L Blood Urea Nitrogen 15 mg/dl Creatinine 0.76 mg/dl Est Creatinine Clear Calc Drug Dose 43.4 ml/min Estimated GFR () 85.3 Estimated GFR (Non- 73.6 BUN/Creatinine Ratio 20.2 Random Glucose 187 mg/dl Lactic Acid Level 1.6 mmol/L Calcium Level 8.4 mg/dl Magnesium Level 1.8 mg/dl Blood Gas Sample Site L Radial Bedside Blood Gas pH (LAB) 7.41 Bedside Blood Gas pCO2 (LAB) 43 mmHg Bedside Blood Gas pO2 (LAB) 90 mmHg Bedside Blood Gas HCO3 (LAB) 28 meq/L Bedside Blood Gas Total CO2 29 mEq/l Bedside Blood Gas Base Excess (LAB) 3.0 meq/L Bedside Blood Gas O2 Saturation 97.0 % Jack Test Pass Oxygen Delivery Device VentiMask Bedside FiO2 45 % Test 11/19/17 10:45 11/19/17 11:12 11/19/17 16:32 Urine Color YELLOW Urine Appearance CLOUDY Urine pH 5.0 Urine Specific Eldred 1.022 Urine Protein 1+ Urine Glucose (UA) NEG Urine Ketones NEG Urine Occult Blood 3+ Urine Nitrite NEG Urine Bilirubin NEG Urine Urobilinogen NEG Urine Leukocyte Esterase NEG Urine WBC (Auto) 1-5 /hpf Urine RBC (Auto) >30 /hpf Urine Hyaline Casts (Auto) 1-5 /lpf Urine Epithelial Cells (Auto) 10-20 /lpf Urine Bacteria (Auto) NEG Bedside Glucose 243 mg/dl 190 mg/dl
--- NOTE | 2017-11-19 18:05 | Progress Note ---
Subjective Date of Service: Nov 19, 2017. Subjective Pt evaluation today including: conversation w/ patient, physical exam, lab review, review of studies, review of inpatient medication list Saw/examined the patient in room 110 She is lethargic and sleeping during my exam as per nursing, she was delirious and agitated and was given Zyprexa earlier No other acute issues as per nursing Problem List Medical Problems: (1) Hypertension Status: Acute (2) Intertrochanteric fracture of left hip Status: Acute Medications Current Inpatient Medications Medications (Trade) Dose Ordered Sig/Helio Route Start Time Stop Time Status Last Admin Dose Admin Carvedilol (Coreg Tab) 25 mg BIDM PO 11/17/17 16:45 12/17/17 16:44 Future Hold 11/17/17 16:20 25 MG Nitroglycerin (Nitrostat Tab) 0.4 mg UD PRN SL 11/17/17 05:30 12/17/17 05:29 Atorvastatin Calcium (Lipitor Tab) 20 mg DAILY PO 11/17/17 09:00 12/17/17 08:59 11/19/17 10:52 20 MG Escitalopram Oxalate (Lexapro Tab) 10 mg DAILY PO 11/17/17 09:00 12/17/17 08:59 11/19/17 10:51 10 MG Ferrous Gluconate (Ferrous Gluconate Tab) 324 mg QAM PO 11/17/17 09:00 12/17/17 08:59 11/19/17 10:51 324 MG Hydralazine HCl (Apresoline Tab) 10 mg QID PO 11/17/17 13:00 12/17/17 12:59 11/19/17 10:50 10 MG Lisinopril (Zestril Tab) 30 mg DAILY PO 11/17/17 09:00 12/17/17 08:59 11/19/17 10:54 30 MG Tramadol HCl (Ultram Tab) 50 mg Q4H PRN PO 11/17/17 05:30 12/17/17 05:29 Trazodone HCl (Desyrel Tab) 25 mg HS PO 11/17/17 21:00 12/17/17 20:59 11/17/17 21:03 25 MG Polyethylene (Miralax Powder Packet) 17 gm DAILY PO 11/17/17 09:00 12/17/17 08:59 11/19/17 10:53 17 GM Prochlorperazine Edisylate 5 mg/ Syringe 5 ml @ 5 mls/min Q6H PRN IV 11/17/17 05:30 12/17/17 05:29 Magnesium Hydroxide (Milk Of Magnesia Susp) 30 ml DAILY PRN PO 11/17/17 05:30 12/17/17 05:29 Bisacodyl (Dulcolax Supp) 10 mg DAILY PRN RI 11/17/17 05:30 12/17/17 05:29 Sodium Biphosphate/ Sodium Phosphate (Fleet Enema) 132 ml PRN PRN RI 11/17/17 05:30 Haloperidol Lactate (Haldol Inj) 2 mg Q2H PRN IM 11/17/17 07:00 12/17/17 06:59 11/19/17 02:06 2 MG Haloperidol (Haldol Tab) 2 mg Q4H PRN PO 11/17/17 07:45 12/17/17 06:59 11/17/17 23:02 2 MG Hydromorphone HCl (Dilaudid Inj) 1 mg Q3HWA PRN IV 11/17/17 09:45 12/01/17 09:44 11/19/17 08:01 1 MG Magnesium Oxide (Mag-Ox Tab) 400 mg DAILY PO 11/18/17 09:00 12/18/17 08:59 11/19/17 10:53 400 MG Potassium Chloride (Klor-Con Tab) 20 meq QAM PO 11/18/17 09:00 12/18/17 08:59 11/19/17 10:52 20 MEQ Ondansetron HCl (Zofran Inj) 4 mg Q6H PRN IV 11/18/17 14:15 12/18/17 14:14 Acetaminophen (Tylenol Tab) 650 mg Q6H PRN PO 11/18/17 14:15 12/18/17 14:14 Oxycodone HCl (Roxicodone Immediate Rel Tab) 5 mg Q4H PRN PO 11/18/17 14:15 12/02/17 14:14 Naloxone HCl (Narcan Inj) 0.4 mg Q1M PRN IV 11/18/17 14:15 12/18/17 14:14 Senna/Docusate Sodium (Senokot S Tab) 2 tab HS PO 11/18/17 21:00 12/18/17 20:59 Clopidogrel Bisulfate (plAVix TAB) 75 mg QAM PO 11/19/17 09:00 12/19/17 08:59 11/19/17 10:54 75 MG Aspirin (Ecotrin Tab) 81 mg QAM PO 11/19/17 09:00 12/19/17 08:59 11/19/17 10:50 81 MG Albuterol/ Ipratropium (Duoneb) 3 ml Q2H PRN INH 11/19/17 02:15 12/19/17 02:14 Miscellaneous Information (Consult) 1 ea UD PRN N/A 11/19/17 09:00 12/19/17 08:59 Insulin Aspart (novoLOG ASPART) SLIDING SCALE If C... ACHS SC 11/19/17 11:00 12/19/17 10:59 11/19/17 16:37 1 UNITS Glucose (Glucose 40% Gel) 15-30 GRAMS 15 GRAMS... UD PRN PO 11/19/17 03:30 12/19/17 03:29 Glucose (Glucose Chew Tab) 4-8 Tablets 4 Tabl... UD PRN PO 11/19/17 03:30 12/19/17 03:29 Dextrose (Dextrose 50% 50ML Syringe) 25-50ML OF 50% DW IV FOR... UD PRN IV 11/19/17 03:30 12/19/17 03:29 Glucagon (Glucagon Inj) 1 mg UD PRN SQ 11/19/17 03:30 12/19/17 03:29 Piperacillin Sod/ Tazobactam Sod 3.375 gm/Dextrose 115 ml @ 28.75 mls/ hr Q8H IV 11/19/17 08:00 11/26/17 07:59 11/19/17 16:30 28.75 MLS/HR Objective Vital Signs Date Time Temp Pulse Resp B/P (MAP) Pulse Ox O2 Delivery O2 Flow Rate FiO2 11/19/17 17:03 69 12 163/72 (102) 100 Oxymask 3.0 11/19/17 16:03 37.1 68 14 135/61 (85) 98 Oxymask 3.0 11/19/17 16:00 Oxymask 3.0 11/19/17 15:33 66 17 141/70 (93) 100 Oxymask 3.0 11/19/17 15:02 66 16 140/65 (90) 99 Oxymask 3.0 11/19/17 14:33 67 17 124/72 (89) 98 Oxymask 3.0 11/19/17 14:00 70 20 146/65 (92) 97 Oxymask 3.0 11/19/17 13:00 70 14 131/68 (89) 98 Oxymask 3.0 11/19/17 12:20 Nasal Cannula 3.0 11/19/17 12:00 36.8 75 19 142/63 (89) 100 Oxymask 3.0 11/19/17 11:00 80 16 133/62 (85) 97 4.0 11/19/17 10:00 79 17 174/82 (112) 96 11/19/17 09:01 79 8 170/74 (106) 93 11/19/17 08:31 36.5 78 13 162/78 (106) 90 Nasal Cannula 4.0 11/19/17 08:00 Nasal Cannula 4.0 11/19/17 07:00 72 18 105/77 (86) 98 11/19/17 06:01 67 13 156/64 (94) 96 11/19/17 05:31 67 19 151/58 (89) 96 11/19/17 05:01 68 20 150/66 (94) 96 11/19/17 04:32 66 9 97/47 (64) 96 Oxymask 4.0 11/19/17 04:01 36.5 71 12 139/65 (89) 97 Oxymask 4.0 11/19/17 04:00 Oxymask 4.0 11/19/17 03:31 69 8 129/61 (83) 98 Oxymask 4.0 11/19/17 03:12 74 9 89/37 (54) 97 Oxymask 4.0 11/19/17 03:07 74 0 81/38 (52) 96 Oxymask 4.0 11/19/17 03:01 75 22 130/63 (85) 96 Oxymask 4.0 11/19/17 02:46 77 20 97 Mask 5.0 11/19/17 02:32 78 10 300/300 (300) 96 Oxymask 4.0 11/19/17 02:02 92 12 200/179 (186) 94 Oxymask 4.0 11/19/17 01:33 94 15 187/90 (122) 91 Oxymask 4.0 11/19/17 01:01 68 11 136/63 (87) 96 Oxymask 4.0 11/19/17 00:31 63 14 125/62 (83) 96 Nasal Cannula 4.0 11/19/17 00:01 36.8 67 16 129/59 (82) 95 Nasal Cannula 4.0 11/18/17 23:59 Nasal Cannula 4.0 11/18/17 23:31 68 10 140/66 (90) 95 Nasal Cannula 4.0 11/18/17 23:01 69 12 125/63 (83) 96 Nasal Cannula 4.0 11/18/17 22:31 66 9 132/62 (85) 95 Nasal Cannula 4.0 11/18/17 22:23 68 8 136/52 (80) 95 Nasal Cannula 4.0 11/18/17 22:01 71 17 139/69 (92) 95 Nasal Cannula 4.0 11/18/17 21:31 64 15 123/71 (88) 96 Nasal Cannula 4.0 11/18/17 21:01 68 16 140/61 (87) 96 Nasal Cannula 4.0 11/18/17 20:31 74 18 143/80 (101) 95 Nasal Cannula 4.0 11/18/17 20:02 36.5 69 11 135/84 (101) 95 Nasal Cannula 4.0 11/18/17 20:00 Nasal Cannula 4.0 11/18/17 19:31 68 11 141/69 (93) 97 Nasal Cannula 4.0 11/18/17 19:01 68 11 146/59 (88) 96 Nasal Cannula 4.0 11/18/17 18:01 70 16 162/67 (98) 99 Mask 5.0 Physical Exam General Appearance: no apparent distress, + pertinent finding (somnolent) Respiratory/Chest: no respiratory distress, no accessory muscle use, + rhonchi Cardiovascular: regular rate, rhythm, no edema, no murmur Laboratory Results Last 24 Hours Test 11/19/17 00:38 11/19/17 02:37 11/19/17 02:40 3/5/18 05:23 Bedside Glucose 183 mg/dl 239 mg/dl White Blood Count 12.05 K/uL Red Blood Count 3.13 M/uL Hemoglobin 9.2 g/dL Hematocrit 28.6 % Mean Corpuscular Volume 91.4 fL Mean Corpuscular Hemoglobin 29.4 pg Mean Corpuscular Hemoglobin Concent 32.2 g/dl Platelet Count 191 K/uL Mean Platelet Volume 9.6 fL Neutrophils (%) (Auto) 82.9 % Lymphocytes (%) (Auto) 10.4 % Monocytes (%) (Auto) 6.2 % Eosinophils (%) (Auto) 0.1 % Basophils (%) (Auto) 0.2 % Neutrophils # (Auto) 9.99 K/uL Lymphocytes # (Auto) 1.25 K/uL Monocytes # (Auto) 0.75 K/uL Eosinophils # (Auto) 0.01 K/uL Basophils # (Auto) 0.02 K/uL RDW Standard Deviation 52.9 fL RDW Coefficient of Variation 15.7 % Immature Granulocyte % (Auto) 0.2 % Immature Granulocyte # (Auto) 0.03 K/uL Sodium Level 140 mmol/L Potassium Level 4.1 mmol/L Chloride Level 106 mmol/L Carbon Dioxide Level 27 mmol/L Anion Gap 7.0 mmol/L Blood Urea Nitrogen 15 mg/dl Creatinine 0.76 mg/dl Est Creatinine Clear Calc Drug Dose 43.4 ml/min Estimated GFR () 85.3 Estimated GFR (Non- 73.6 BUN/Creatinine Ratio 20.2 Random Glucose 187 mg/dl Lactic Acid Level 1.6 mmol/L Calcium Level 8.4 mg/dl Magnesium Level 1.8 mg/dl Blood Gas Sample Site L Radial Bedside Blood Gas pH (LAB) 7.41 Bedside Blood Gas pCO2 (LAB) 43 mmHg Bedside Blood Gas pO2 (LAB) 90 mmHg Bedside Blood Gas HCO3 (LAB) 28 meq/L Bedside Blood Gas Total CO2 29 mEq/l Bedside Blood Gas Base Excess (LAB) 3.0 meq/L Bedside Blood Gas O2 Saturation 97.0 % Jack Test Pass Oxygen Delivery Device VentiMask Bedside FiO2 45 % Test 11/19/17 10:45 11/19/17 11:12 11/19/17 16:32 Urine Color YELLOW Urine Appearance CLOUDY Urine pH 5.0 Urine Specific [place] 1.022 Urine Protein 1+ Urine Glucose (UA) NEG Urine Ketones NEG Urine Occult Blood 3+ Urine Nitrite NEG Urine Bilirubin NEG Urine Urobilinogen NEG Urine Leukocyte Esterase NEG Urine WBC (Auto) 1-5 /hpf Urine RBC (Auto) >30 /hpf Urine Hyaline Casts (Auto) 1-5 /lpf Urine Epithelial Cells (Auto) 10-20 /lpf Urine Bacteria (Auto) NEG Bedside Glucose 243 mg/dl 190 mg/dl Assessment and Plan This is an 82 year old female with a PMH of CAD s/p CABG, ischemic cardiomyopathy and chronic systolic CHF, uncontrolled HTN, depression/anxiety, anemia - presents with a fall and subsequent hip fracture Multiple Falls due to Ambulatory Dysfunction L Femoral Neck Fracture 11/19 appreciate ortho, anesthesia input patient had surgical intervention yesterday after surgery, code carrol was called due to acute hypoxia Dr. Mello saw the patient and suctioned what could have been mucous plugging she was taken to the ICU - monitored there code status changed to DNR will need SNF discharge when stabilized 11/18 plan for surgical repair today in the OR will give an extra dose of Dilaudid for pain appreciate cardiology input - high risk for surgery 11/17 patient presents to the hospital due to multiple falls from [facility] last fall caused significant L hip pain; upon presentation had imaging confirming fracture orthopedics input appreciated - to go for surgery in AM (11/18) cardiology consulted for clearance; she is high risk for surgery, but for quality of life, will proceed Plavix is held, will restart on 11/19 anesthesia also consulted; patient may need a one day stay in ICU post- operatively Delirium on Dementia 11/19 seems like underlying dementia patient delirious afterwards due to anesthesia/hypoxia/post-op given a dose of Zyprexa, now somnolent 11/18 patient's family stating that she has not been the same mentally since her CABG in September Head CT suggests chronic small vessel changes may need to increase statin and possibly aspirin dose - but will refrain from making changes until after surgery CAD s/p CABG recent CABG in September 2017 continue current cardiac meds; Plavix restarted post-operatively cardiology consulted Uncontrolled HTN difficult to control blood pressure, likely worsened secondary to pain as per daughter, blood pressure has been an issue for over 4 months she is on Coreg; would be hesitant to increase this due to intermittent low HRs She is on Hydralazine 10mg QID and Lisinopril 30mg daily if blood pressure remains high, will likely increase Lisinopril to 40mg vs. adding CCB Ischemic Cardiomyopathy Chronic Systolic CHF currently euvolemic no need for any diuretics at this time Depression/Anxiety continue home medications Iron Deficiency Anemia Hgb stable, continue iron supplementation DVT ppx SCDs due to hematoma in the scalp may need chemical prophylaxis post operatively due to high risk of DVTs FULL CODE
--- NOTE | 2017-11-19 18:31 | [facility] Operative Report ---
Operative Report Operative Date Nov 19, 2017. Pre-Operative Diagnosis Left displaced basicervical femoral neck fracture Post-Operative Diagnosis Left displaced basicervical femoral neck fracture Procedure(s) Performed Left hip cephalomedullary nail Surgeon Dr. James Pharmacist Manager Surgeon(s) none Estimated Blood Loss 75ml Findings see dictated op note Fluids 500 Specimens none per surgeon Drains None Anesthesia Type General Complication(s) none Disposition yes Recovery Room / PACU Indications -82yo Female with displaced left basicervical femoral neck fracture sustained after a fall. The patient was cleared by the medical team and cardiology on 11/18. I indicated the patient for left hip cephalomedullary nail. The family and patient were informed of the risks and benefits of surgery, which included but not limited to infection, bleeding, blood clots, damage to nerves, vessels, bone and soft tissue, leg length discrepancy, malunion, non union, need for additional surgery and . The patients family collectively chose to move forward with surgical intervention and informed consent was obtained. Description of Procedure Following induction of adequate spinal anesthesia, the patient was placed on the fracture table and positioned with the operative leg in the traction leg ballard. The contralateral leg was positioned in the well leg ballard and bony prominences well padded. Utilizing C -arm fluoroscopy a closed reduction was performed and fracture positioned verified. The left hip was then prepped and draped in usual sterile manner. The incision was made from the tip of the greater trochanter proximally. Subcutaneous tissue was sharply dissected to the tip of the greater trochanter, electrocautery used for hemostasis. Under fluoroscopic guidance the drill tipped guidewire was placed at the tip of the greater trochanter and advanced into the medullary canal and overdrilled using the intramedullary drill with tissue protected attached. A 12 mm short Synthes nail was impacted into position and confirmed by fluoro. The short nail was locked proximally with a 95 mm helical blade. The short nail was locked distally using a single 34 mm cortical bone screw. Final radiographs were taken to confirm overall position and fracture reduction. Incisions were irrigated with copious amounts of sterile saline solution and the surgical incisions were injected with local .5 Marcaine with epi and closed using #1 Vicryl for deep fascia, 2-0 Vicryl subcutaneous and vimal in the skin. Sterile dressing, Xeroform gauze, 4x4s and tegaderm were applied. The patient tolerated the procedure well and was transported to the PACU in stable condition. I attest to the content of the Intraoperative Record and any orders documented therein. Any exceptions are noted below.
[2017-11-19] MEDS: TRAZODONE HCL 50 MG TAB PO SCH (20:06)
[2017-11-19] MEDS: DOCUSATE SODIUM/SENNA 50/8.6MG TAB PO SCH (20:06)
[2017-11-19] MEDS: SODIUM CHLORIDE 0.9% 1000ML 1,000 ML IV SCH (22:36)
[2017-11-20] VITALS (15 sets, daily range): BP systolic 126–195; BP diastolic 58–84; PULSE 67–83; TEMP 36.6–37.5; O2SAT 88–100
[2017-11-20] MEDS: PIPERACILL/TAZOBAC IV 3.375 GM in DEXTROSE 5% 100ML IV SCH ×2 (00:35→07:54)
[2017-11-20] MEDS: HALOPERIDOL 1 MG TAB PO PRN (01:17)
[2017-11-20] MEDS: HALOPERIDOL LACTATE 5 MG/ML 1 ML VIAL IM PRN (01:38)
[2017-11-20 06:03] LABS: HEMATOCRIT 27.8 % (37-47); HEMOGLOBIN 8.6 g/dL (12.0-16.0); MEAN CELL VOLUME 92.7 fL (80-100); MEAN CORPUSCULAR HEMOGLOBIN 28.7 pg (25-34); MEAN CORPUSCULAR HGB CONC 30.9 g/dl (32-36); MEAN PLATELET VOLUME 10.2 fL (7.4-10.4); PLATELET COUNT 218 K/uL (130-400); RED CELL DISTRIBUTION WIDTH CV 15.4 % (11.5-14.5); RED CELL DISTRIBUTION WIDTH SD 52.7 fL (36.4-46.3)
[2017-11-20 06:33] LABS: CALCIUM 8.4 mg/dl (8.5-10.1); CREATININE 0.68 mg/dl (0.60-1.20); PHOSPHORUS 2.1 mg/dl (2.5-4.9); POTASSIUM 3.9 mmol/L (3.5-5.1)
[2017-11-20] MEDS: INSULIN ASPART 100 UNITS/ML 3 ML PEN SC SCH ×4 (07:50→21:00)
[2017-11-20] MEDS: ESCITALOPRAM OXALATE 10 MG TAB PO SCH (07:51)
[2017-11-20] MEDS: ATORVASTATIN 20 MG TAB PO SCH (07:51)
[2017-11-20] MEDS: CLOPIDOGREL BISULFATE 75 MG TAB PO SCH (07:51)
[2017-11-20] MEDS: LISINOPRIL 20 MG TAB PO SCH (07:52)
[2017-11-20] MEDS: FERROUS GLUCONATE 324 MG TAB PO SCH (07:52)
[2017-11-20] MEDS: POTASSIUM CHLORIDE 20 MEQ TABCR PO SCH (07:52)
[2017-11-20] MEDS: ASPIRIN 81 MG ECTAB PO SCH (07:53)
[2017-11-20] MEDS: HydrALAZINE 10 MG TAB PO SCH ×4 (07:53→21:16)
[2017-11-20] MEDS: MAGNESIUM OXIDE 400 MG TAB PO SCH (07:53)
[2017-11-20] MEDS: POLYETHYLENE (MIRALAX) 17 GM PACK PO SCH (07:53)
--- NOTE | 2017-11-20 09:01 | Progress Note ---
Medicine Progress Note Date & Time of Visit: Nov 20, 2017 at 08:45. Subjective seen sitting up in bed, alert, oriented x 2 answers most questions appropriately, irritable follows commands PACKAGE CHECKER 1:! observation at bedside was declining meds and breakfast earlier reassured patient, then agreed to take meds and have breakfast reports hip pain ROS difficult to assess as patient is irritable does not seem to be in distress, pain, dyspneic at all no other symptoms Objective Last 8 Hrs Date Time Temp Pulse Resp B/P (MAP) Pulse Ox O2 Delivery O2 Flow Rate FiO2 11/20/17 08:00 Room Air 11/20/17 06:00 72 19 157/70 (99) 100 Oxymask 2.0 11/20/17 04:00 80 21 167/83 (111) 99 11/20/17 04:00 36.6 80 21 167/83 (111) 99 Oxymask 2.0 11/20/17 04:00 100 Oxymask 2.0 11/20/17 02:29 83 23 177/82 (113) 93 11/20/17 02:01 79 18 195/84 (121) 96 11/20/17 02:01 79 18 195/84 (121) 96 11/20/17 02:01 79 18 195/84 (121) 96 Oxymask 2.0 11/20/17 02:00 76 24 96 11/20/17 02:00 76 24 96 Physical Exam: General- oriented x 2, not in distress, speaks in sentences with no effort Head- no obvious head trauma Eyes- EOMI, anicteric ENT- oropharynx clear Neck- supple, no JVD, no adenopathy, no thyromegaly Lungs- clear breath sounds bilaterally Heart- regular rhythm; no murmur,normal rate Abdomen- normal bowel sounds, soft, nontender Hip- Left: small area of hematoma, moderate edema, dressing in place- no discharge, bleeding Extremities- no pretibial edema, no calf tenderness; Neuro- alert, oriented x 2, occasionally confused, no other gross focal neuro deficits Skin- warm & dry Laboratory Results: Last 24 Hours Test 11/19/17 10:45 11/19/17 11:12 11/19/17 16:32 11/19/17 20:10 Urine Color YELLOW Urine Appearance CLOUDY Urine pH 5.0 Urine Specific [place] 1.022 Urine Protein 1+ Urine Glucose (UA) NEG Urine Ketones NEG Urine Occult Blood 3+ Urine Nitrite NEG Urine Bilirubin NEG Urine Urobilinogen NEG Urine Leukocyte Esterase NEG Urine WBC (Auto) 1-5 /hpf Urine RBC (Auto) >30 /hpf Urine Hyaline Casts (Auto) 1-5 /lpf Urine Epithelial Cells (Auto) 10-20 /lpf Urine Bacteria (Auto) NEG Bedside Glucose 243 mg/dl 190 mg/dl 186 mg/dl Test 11/20/17 00:19 11/20/17 05:38 11/20/17 06:34 Bedside Glucose 144 mg/dl 189 mg/dl White Blood Count 11.20 K/uL Red Blood Count 3.00 M/uL Hemoglobin 8.6 g/dL Hematocrit 27.8 % Mean Corpuscular Volume 92.7 fL Mean Corpuscular Hemoglobin 28.7 pg Mean Corpuscular Hemoglobin Concent 30.9 g/dl RDW Standard Deviation 52.7 fL RDW Coefficient of Variation 15.4 % Platelet Count 218 K/uL Mean Platelet Volume 10.2 fL Sodium Level 139 mmol/L Potassium Level 3.9 mmol/L Chloride Level 105 mmol/L Carbon Dioxide Level 29 mmol/L Anion Gap 5.0 mmol/L Blood Urea Nitrogen 14 mg/dl Creatinine 0.68 mg/dl Est Creatinine Clear Calc Drug Dose 51.3 ml/min Estimated GFR () 95.1 Estimated GFR (Non- 82.0 BUN/Creatinine Ratio 21.0 Random Glucose 191 mg/dl Calcium Level 8.4 mg/dl Phosphorus Level 2.1 mg/dl Magnesium Level 2.1 mg/dl Assessment & Plan This is an 82 year old female with a PMH of CAD s/p CABG, ischemic cardiomyopathy and chronic systolic CHF, uncontrolled HTN, depression/anxiety, anemia - presents with a fall and subsequent hip fracture Multiple Falls due to Ambulatory Dysfunction Left displaced basicervical femoral neck fracture 11/18/17P: s/p Left hip cephalomedullary nail by Dr. John Rasmussen BP elevated, Hg decreased to 8 management of BP as noted below monitor Hg appreciate Ortho Consult PT/OT Episode of Hypoxia likely from Mucous Plug vs. Aspiration back to room air afebrile on Zosyn Day 2 transition to PO soon Delirium on Dementia seems like underlying dementia patient delirious afterwards due to anesthesia/hypoxia/post-op given a dose of Zyprexa, also PRN Haldol continue usual Escitalopram, Trazodone CAD s/p CABG recent CABG in September 2017 no cardiac symptoms Cardiology consulted continue Aspirin, Plavix, Co Reg Uncontrolled HTN difficult to control blood pressure, likely worsened secondary to pain continue Coreg, Hydralazine 10mg QID and Lisinopril 30mg daily PRN Clonidine Ischemic Cardiomyopathy Chronic Systolic CHF currently euvolemic Depression/Anxiety continue home medications Iron Deficiency Anemia Hg down to 8 monitor daily DVT ppx SCDs due to hematoma in the scalp DNR Disposition anticipate d/c to Rehab or SNF when medically stable and cleared by Ortho Current Inpatient Medications: Current Inpatient Medications Medications (Trade) Dose Ordered Sig/Helio Route Start Time Stop Time Status Last Admin Dose Admin Nitroglycerin (Nitrostat Tab) 0.4 mg UD PRN SL 11/17/17 05:30 12/17/17 05:29 Atorvastatin Calcium (Lipitor Tab) 20 mg DAILY PO 11/17/17 09:00 12/17/17 08:59 11/20/17 07:51 20 MG Escitalopram Oxalate (Lexapro Tab) 10 mg DAILY PO 11/17/17 09:00 12/17/17 08:59 11/20/17 07:51 10 MG Ferrous Gluconate (Ferrous Gluconate Tab) 324 mg QAM PO 11/17/17 09:00 12/17/17 08:59 11/20/17 07:52 324 MG Hydralazine HCl (Apresoline Tab) 10 mg QID PO 11/17/17 13:00 12/17/17 12:59 11/20/17 07:53 10 MG Lisinopril (Zestril Tab) 30 mg DAILY PO 11/17/17 09:00 12/17/17 08:59 11/20/17 07:52 30 MG Tramadol HCl (Ultram Tab) 50 mg Q4H PRN PO 11/17/17 05:30 12/17/17 05:29 Trazodone HCl (Desyrel Tab) 25 mg HS PO 11/17/17 21:00 12/17/17 20:59 11/17/17 21:03 25 MG Polyethylene (Miralax Powder Packet) 17 gm DAILY PO 11/17/17 09:00 12/17/17 08:59 11/20/17 07:53 17 GM Prochlorperazine Edisylate 5 mg/ Syringe 5 ml @ 5 mls/min Q6H PRN IV 11/17/17 05:30 12/17/17 05:29 Magnesium Hydroxide (Milk Of Magnesia Susp) 30 ml DAILY PRN PO 11/17/17 05:30 12/17/17 05:29 Bisacodyl (Dulcolax Supp) 10 mg DAILY PRN IN 11/17/17 05:30 12/17/17 05:29 Sodium Biphosphate/ Sodium Phosphate (Fleet Enema) 132 ml PRN PRN IN 11/17/17 05:30 Haloperidol Lactate (Haldol Inj) 2 mg Q2H PRN IM 11/17/17 07:00 12/17/17 06:59 11/20/17 01:38 2 MG Haloperidol (Haldol Tab) 2 mg Q4H PRN PO 11/17/17 07:45 12/17/17 06:59 11/17/17 23:02 2 MG Hydromorphone HCl (Dilaudid Inj) 1 mg Q3HWA PRN IV 11/17/17 09:45 12/01/17 09:44 11/19/17 08:01 1 MG Magnesium Oxide (Mag-Ox Tab) 400 mg DAILY PO 11/18/17 09:00 12/18/17 08:59 11/20/17 07:53 400 MG Potassium Chloride (Klor-Con Tab) 20 meq QAM PO 11/18/17 09:00 12/18/17 08:59 11/20/17 07:52 20 MEQ Ondansetron HCl (Zofran Inj) 4 mg Q6H PRN IV 11/18/17 14:15 12/18/17 14:14 Acetaminophen (Tylenol Tab) 650 mg Q6H PRN PO 11/18/17 14:15 12/18/17 14:14 Oxycodone HCl (Roxicodone Immediate Rel Tab) 5 mg Q4H PRN PO 11/18/17 14:15 12/02/17 14:14 11/20/17 07:48 5 MG Naloxone HCl (Narcan Inj) 0.4 mg Q1M PRN IV 11/18/17 14:15 12/18/17 14:14 Senna/Docusate Sodium (Senokot S Tab) 2 tab HS PO 11/18/17 21:00 12/18/17 20:59 Clopidogrel Bisulfate (plAVix TAB) 75 mg QAM PO 11/19/17 09:00 12/19/17 08:59 11/20/17 07:51 75 MG Aspirin (Ecotrin Tab) 81 mg QAM PO 11/19/17 09:00 12/19/17 08:59 11/20/17 07:53 81 MG Albuterol/ Ipratropium (Duoneb) 3 ml Q2H PRN INH 11/19/17 02:15 12/19/17 02:14 Miscellaneous Information (Consult) 1 ea UD PRN N/A 11/19/17 09:00 12/19/17 08:59 Insulin Aspart (novoLOG ASPART) SLIDING SCALE If C... ACHS SC 11/19/17 11:00 12/19/17 10:59 11/20/17 07:50 1 UNITS Glucose (Glucose 40% Gel) 15-30 GRAMS 15 GRAMS... UD PRN PO 11/19/17 03:30 12/19/17 03:29 Glucose (Glucose Chew Tab) 4-8 Tablets 4 Tabl... UD PRN PO 11/19/17 03:30 12/19/17 03:29 Dextrose (Dextrose 50% 50ML Syringe) 25-50ML OF 50% DW IV FOR... UD PRN IV 11/19/17 03:30 12/19/17 03:29 Glucagon (Glucagon Inj) 1 mg UD PRN SQ 11/19/17 03:30 12/19/17 03:29 Piperacillin Sod/ Tazobactam Sod 3.375 gm/Dextrose 115 ml @ 28.75 mls/ hr Q8H IV 11/19/17 08:00 11/26/17 07:59 11/20/17 07:54 28.75 MLS/HR Sodium Chloride 1,000 ml @ 85 mls/hr [id number] IV 11/19/17 22:30 12/19/17 22:29 11/19/17 22:36 85 MLS/HR Carvedilol (Coreg Tab) 25 mg BID PO 11/20/17 09:00 12/20/17 08:59 Potassium/ Phosphorus/Sodium (Phospha 250 Neutral 155-852-130 Mg) 1 tab QID PO 11/20/17 09:00 12/20/17 08:59
--- NOTE | 2017-11-20 09:31 | Clinical Documentation Query ---
ALFREDO Cardenas : CLINICAL DOCUMENTATION QUERY Postoperatively, while still in PACU, patient required table games shift manager consultation and bag valve mask ventilation. She was transferred to ICU postoperatively and ordered IV Zosyn, steroids, blood cultures, and provided with ongoing oxygen supplementation. As appropriate, consider capture of these events as suggested below. Thank you. In your clinical opinion is this patient being managed for: ( ) (Possible/Suspected) Acute postoperative pulmonary insufficiency secondary to aspiration with resultant pneumonia/pneumonitis ( ) Not Agree ( ) Other explanation of clinical findings (Please Explain) ( ) Unable to determine (Please Define) ( ) Need to Discuss The medical record reflects the following clinical findings, treatment, and risk factors. Clinical Indicators: As above Treatment: As above Risk Factors: Age, general anesthesia Please clarify and document your clinical opinion in the progress notes and discharge summary. Terms such as "probable", "suspected", "likely", "questionable", "possible", or "still to be ruled out" are acceptable. IF IN AGREEMENT, YOU MUST DOCUMENT ABOVE DIAGNOSTIC STATEMENT IN DAILY PROGRESS NOTES AND DISCHARGE SUMMARY. This document is not part of the patient's record. Thank You, Robert Grajeda, RN [phone]
[2017-11-20] MEDS ORDERED: LANTUS PER UNIT CHARGE SQ ONE (09:45)
[2017-11-20] MEDS: OLANZAPINE ZYDIS 5 MG ORALLY DIS. TAB PO SCH ×2 (09:58→21:17)
[2017-11-20] MEDS: POT PHOSPHATE MONOBASIC W/ SOD TAB PO SCH ×4 (10:06→21:16)
[2017-11-20] MEDS: CARVEDILOL 25 MG TAB PO SCH ×2 (10:07→21:17)
--- NOTE | 2017-11-20 11:21 | Cardiology Follow-Up ---
Subjective Subjective Date of Service: Nov 20, 2017. Pt evaluation today including: conversation w/ patient, physical exam, chart review, lab review, review of studies, conversation w/ management consultant Additional Details: The patient had an uneventful cardiac night. She remains confused and requires a sitter. Currently she is resting quietly. Problem List Medical Problems: (1) Hypertension Status: Acute (2) Intertrochanteric fracture of left hip Status: Acute Objective Vital Signs Last Vital Signs Documentation Date Time Temp Pulse Resp B/P (MAP) Pulse Ox O2 Delivery O2 Flow Rate FiO2 11/20/17 10:00 79 14 136/64 (88) 99 Room Air 11/20/17 06:00 2.0 11/20/17 04:00 36.6 Physical Exam: General Appearance: no apparent distress, + pertinent finding (somnolent) ENT: normal ENT inspection Neck: no adenopathy, thyroid normal, no JVD Respiratory/Chest: no respiratory distress, no accessory muscle use, + rhonchi Cardiovascular: regular rate, rhythm, no edema, no murmur Abdomen: normal bowel sounds, non tender, soft Extremities: normal inspection, no pedal edema Neurologic/Psychiatric: + facial droop, + disoriented Skin: warm/dry, no rash Lymphatic: no adenopathy Assessment and Plan Impression: 1. Hip fracture status post ORIF 2. Dementia 3. Recent postoperative stroke 4. Stable coronary artery disease status post coronary artery bypass September 2017 Recommendations: Currently the patient is hemodynamically stable from a cardiac standpoint. No new suggestions, I will see her on an as-needed basis. Medications: Current Inpatient Medications Medications (Trade) Dose Ordered Sig/Helio Route Start Time Stop Time Status Last Admin Dose Admin Nitroglycerin (Nitrostat Tab) 0.4 mg UD PRN SL 11/17/17 05:30 12/17/17 05:29 Atorvastatin Calcium (Lipitor Tab) 20 mg DAILY PO 11/17/17 09:00 12/17/17 08:59 11/20/17 07:51 20 MG Escitalopram Oxalate (Lexapro Tab) 10 mg DAILY PO 11/17/17 09:00 12/17/17 08:59 11/20/17 07:51 10 MG Ferrous Gluconate (Ferrous Gluconate Tab) 324 mg QAM PO 11/17/17 09:00 12/17/17 08:59 11/20/17 07:52 324 MG Hydralazine HCl (Apresoline Tab) 10 mg QID PO 11/17/17 13:00 12/17/17 12:59 11/20/17 07:53 10 MG Lisinopril (Zestril Tab) 30 mg DAILY PO 11/17/17 09:00 12/17/17 08:59 11/20/17 07:52 30 MG Tramadol HCl (Ultram Tab) 50 mg Q4H PRN PO 11/17/17 05:30 12/17/17 05:29 Trazodone HCl (Desyrel Tab) 25 mg HS PO 11/17/17 21:00 12/17/17 20:59 11/17/17 21:03 25 MG Polyethylene (Miralax Powder Packet) 17 gm DAILY PO 11/17/17 09:00 12/17/17 08:59 11/20/17 07:53 17 GM Prochlorperazine Edisylate 5 mg/ Syringe 5 ml @ 5 mls/min Q6H PRN IV 11/17/17 05:30 12/17/17 05:29 Magnesium Hydroxide (Milk Of Magnesia Susp) 30 ml DAILY PRN PO 11/17/17 05:30 12/17/17 05:29 Bisacodyl (Dulcolax Supp) 10 mg DAILY PRN [place] 11/17/17 05:30 12/17/17 05:29 Sodium Biphosphate/ Sodium Phosphate (Fleet Enema) 132 ml PRN PRN [place] 11/17/17 05:30 Haloperidol Lactate (Haldol Inj) 2 mg Q2H PRN IM 11/17/17 07:00 12/17/17 06:59 11/20/17 01:38 2 MG Haloperidol (Haldol Tab) 2 mg Q4H PRN PO 11/17/17 07:45 12/17/17 06:59 11/17/17 23:02 2 MG Hydromorphone HCl (Dilaudid Inj) 1 mg Q3HWA PRN IV 11/17/17 09:45 12/01/17 09:44 11/19/17 08:01 1 MG Magnesium Oxide (Mag-Ox Tab) 400 mg DAILY PO 11/18/17 09:00 12/18/17 08:59 11/20/17 07:53 400 MG Potassium Chloride (Klor-Con Tab) 20 meq QAM PO 11/18/17 09:00 12/18/17 08:59 11/20/17 07:52 20 MEQ Ondansetron HCl (Zofran Inj) 4 mg Q6H PRN IV 11/18/17 14:15 12/18/17 14:14 Acetaminophen (Tylenol Tab) 650 mg Q6H PRN PO 11/18/17 14:15 12/18/17 14:14 Oxycodone HCl (Roxicodone Immediate Rel Tab) 5 mg Q4H PRN PO 11/18/17 14:15 12/02/17 14:14 11/20/17 07:48 5 MG Naloxone HCl (Narcan Inj) 0.4 mg Q1M PRN IV 11/18/17 14:15 12/18/17 14:14 Senna/Docusate Sodium (Senokot S Tab) 2 tab HS PO 11/18/17 21:00 12/18/17 20:59 Clopidogrel Bisulfate (plAVix TAB) 75 mg QAM PO 11/19/17 09:00 12/19/17 08:59 11/20/17 07:51 75 MG Aspirin (Ecotrin Tab) 81 mg QAM PO 11/19/17 09:00 12/19/17 08:59 11/20/17 07:53 81 MG Albuterol/ Ipratropium (Duoneb) 3 ml Q2H PRN INH 11/19/17 02:15 12/19/17 02:14 Miscellaneous Information (Consult) 1 ea UD PRN N/A 11/19/17 09:00 12/19/17 08:59 Insulin Aspart (novoLOG ASPART) SLIDING SCALE If C... ACHS SC 11/19/17 11:00 12/19/17 10:59 11/20/17 07:50 1 UNITS Glucose (Glucose 40% Gel) 15-30 GRAMS 15 GRAMS... UD PRN PO 11/19/17 03:30 12/19/17 03:29 Glucose (Glucose Chew Tab) 4-8 Tablets 4 Tabl... UD PRN PO 11/19/17 03:30 12/19/17 03:29 Dextrose (Dextrose 50% 50ML Syringe) 25-50ML OF 50% DW IV FOR... UD PRN IV 11/19/17 03:30 12/19/17 03:29 Glucagon (Glucagon Inj) 1 mg UD PRN SQ 11/19/17 03:30 12/19/17 03:29 Piperacillin Sod/ Tazobactam Sod 3.375 gm/Dextrose 115 ml @ 28.75 mls/ hr Q8H IV 11/19/17 08:00 11/26/17 07:59 11/20/17 07:54 28.75 MLS/HR Sodium Chloride 1,000 ml @ 85 mls/hr [id number] IV 11/19/17 22:30 12/19/17 22:29 11/19/17 22:36 85 MLS/HR Carvedilol (Coreg Tab) 25 mg BID PO 11/20/17 09:00 12/20/17 08:59 11/20/17 10:07 25 MG Potassium/ Phosphorus/Sodium (Phospha 250 Neutral 155-852-130 Mg) 1 tab QID PO 11/20/17 09:00 12/20/17 08:59 11/20/17 10:06 1 TAB Olanzapine (Zyprexa Zydis Od Tab) 2.5 mg BID PO 11/20/17 09:00 12/20/17 08:59 11/20/17 09:58 2.5 MG Lab Results: Last 24 Hours Test 11/19/17 16:32 11/19/17 20:10 11/20/17 00:19 11/20/17 05:38 Bedside Glucose 190 mg/dl 186 mg/dl 144 mg/dl White Blood Count 11.20 K/uL Red Blood Count 3.00 M/uL Hemoglobin 8.6 g/dL Hematocrit 27.8 % Mean Corpuscular Volume 92.7 fL Mean Corpuscular Hemoglobin 28.7 pg Mean Corpuscular Hemoglobin Concent 30.9 g/dl RDW Standard Deviation 52.7 fL RDW Coefficient of Variation 15.4 % Platelet Count 218 K/uL Mean Platelet Volume 10.2 fL Sodium Level 139 mmol/L Potassium Level 3.9 mmol/L Chloride Level 105 mmol/L Carbon Dioxide Level 29 mmol/L Anion Gap 5.0 mmol/L Blood Urea Nitrogen 14 mg/dl Creatinine 0.68 mg/dl Est Creatinine Clear Calc Drug Dose 51.3 ml/min Estimated GFR () 95.1 Estimated GFR (Non- 82.0 BUN/Creatinine Ratio 21.0 Random Glucose 191 mg/dl Calcium Level 8.4 mg/dl Phosphorus Level 2.1 mg/dl Magnesium Level 2.1 mg/dl Test 11/20/17 06:34 Bedside Glucose 189 mg/dl
[2017-11-20] MEDS: SODIUM CHLORIDE 0.9% 1000ML 1,000 ML IV SCH ×2 (11:49→22:27)
--- NOTE | 2017-11-20 12:44 | Orthopedic Progress Note ---
Orthopedic Progress Note Date of Service Nov 20, 2017. Subjective Additional Notes: Patient seen resting comfortably, no acute issues overnight, less agitated this am. Objective NAD LLE NVSI +EHL/FHL/TA/GS SILT grossly, actively wiggles foot and toes, compartments soft NT, dressing cdi Date Time Temp Pulse Resp B/P (MAP) Pulse Ox O2 Delivery O2 Flow Rate FiO2 11/20/17 12:00 Nasal Cannula 2.0 11/20/17 12:00 37.5 71 17 129/58 (81) 97 Nasal Cannula 2.0 11/20/17 10:00 79 14 136/64 (88) 99 Room Air 11/20/17 08:00 Room Air 11/20/17 08:00 78 22 176/79 (111) 88 Room Air 11/20/17 06:00 72 19 157/70 (99) 100 Oxymask 2.0 11/20/17 04:00 80 21 167/83 (111) 99 11/20/17 04:00 36.6 80 21 167/83 (111) 99 Oxymask 2.0 11/20/17 04:00 100 Oxymask 2.0 11/20/17 02:29 83 23 177/82 (113) 93 11/20/17 02:01 79 18 195/84 (121) 96 11/20/17 02:01 79 18 195/84 (121) 96 11/20/17 02:01 79 18 195/84 (121) 96 Oxymask 2.0 11/20/17 02:00 76 24 96 11/20/17 02:00 76 24 96 11/20/17 00:00 67 7 170/70 (103) 97 11/20/17 00:00 36.7 67 12 170/70 (103) 97 Oxymask 2.0 11/20/17 00:00 67 7 170/70 (103) 97 11/19/17 23:59 100 Oxymask 2.0 11/19/17 22:00 64 18 163/63 (96) 100 Oxymask 2.0 11/19/17 20:03 36.6 63 18 147/90 (109) 100 Oxymask 2.0 11/19/17 20:00 Oxymask 2.0 11/19/17 19:03 65 16 154/65 (94) 100 Oxymask 3.0 11/19/17 18:03 68 8 124/52 (76) 99 Oxymask 3.0 11/19/17 17:03 69 12 163/72 (102) 100 Oxymask 3.0 11/19/17 16:03 37.1 68 14 135/61 (85) 98 Oxymask 3.0 11/19/17 16:00 Oxymask 3.0 11/19/17 15:33 66 17 141/70 (93) 100 Oxymask 3.0 11/19/17 15:02 66 16 140/65 (90) 99 Oxymask 3.0 11/19/17 14:33 67 17 124/72 (89) 98 Oxymask 3.0 11/19/17 14:00 70 20 146/65 (92) 97 Oxymask 3.0 11/19/17 13:00 70 14 131/68 (89) 98 Oxymask 3.0 Laboratory Results 24 Hours: Test 11/20/17 05:38 Hematocrit 27.8 % Hemoglobin 8.6 g/dL Assessment & Plan Assessment: Status post left hip cephalomedullary nail. POD#2 Plan: -Ancef x 24 -toe touch weight bearing LLE -PT/OT with assistance -Pain control -DVT ppx - restart plavix and start 81mg aspirin daily -PO XR L Hip: Well aligned well fixed cephalomedullary nail. -AM labs - Hgb 9.2 -Change dressing POD#2 318 -ICU for medical management
[2017-11-20 14:52] LABS: HEMATOCRIT 28.7 % (37-47); HEMOGLOBIN 9.1 g/dL (12.0-16.0); MEAN CELL VOLUME 92.6 fL (80-100); MEAN CORPUSCULAR HEMOGLOBIN 29.4 pg (25-34); MEAN CORPUSCULAR HGB CONC 31.7 g/dl (32-36); MEAN PLATELET VOLUME 9.3 fL (7.4-10.4); PLATELET COUNT 217 K/uL (130-400); RED CELL DISTRIBUTION WIDTH CV 15.7 % (11.5-14.5); RED CELL DISTRIBUTION WIDTH SD 53.1 fL (36.4-46.3); WHITE BLOOD COUNT 11.71 K/uL (4.8-10.8)
--- NOTE | 2017-11-20 15:52 | Critical Care Progress Note ---
Critical Care Progress Note Date of Service Nov 20, 2017. Attending Dr. Moise Subjective Still with periods of belligerence, not compliant with treatment Objective General: Elderly female in no distress, occasionally agitated Heent: NC/AT CVS:S1S2 reg Lungs: Clear to auscultation b/l Abd: soft, non-tender Ext: Left hip dressing intact, clean GRIP BOSS: Moves all 4 extremities Assessment & Plan Post-op respiratory insufficiency Left hip fx, s/p nailing CAD s/p recent CABG CVA Plan: Possible additional component of delirium Zyprexa dose lowered to 2.5 as she a little too sedate yesterday after 5 mg prn Haldol 2 mg Stabilized from a respiratory standpoint. Supplement O2 as needed Empiric Zosyn for aspiration PNA. May discontinue, doubt bacterial component Continue ASA, Lipitor, Plavix Continue Coreg Diet H/h has been drifting down with no evidence of bleeding, and minimal intra-op blood loss. It stabilized this afternoon DVT prophylaxis per ortho. On ASA and Plavix DNR/DNI Critical care time spent with the patient, reviewing the chart, greater than 25 minutes May be transferred to floor, will sign off from a critical care standpoint Data Medications: Current Inpatient Medications Medications (Trade) Dose Ordered Sig/Helio Route Start Time Stop Time Status Last Admin Dose Admin Nitroglycerin (Nitrostat Tab) 0.4 mg UD PRN SL 11/17/17 05:30 12/17/17 05:29 Atorvastatin Calcium (Lipitor Tab) 20 mg DAILY PO 11/17/17 09:00 12/17/17 08:59 11/20/17 07:51 20 MG Escitalopram Oxalate (Lexapro Tab) 10 mg DAILY PO 11/17/17 09:00 12/17/17 08:59 11/20/17 07:51 10 MG Ferrous Gluconate (Ferrous Gluconate Tab) 324 mg QAM PO 11/17/17 09:00 12/17/17 08:59 11/20/17 07:52 324 MG Hydralazine HCl (Apresoline Tab) 10 mg QID PO 11/17/17 13:00 12/17/17 12:59 11/20/17 13:26 10 MG Lisinopril (Zestril Tab) 30 mg DAILY PO 11/17/17 09:00 12/17/17 08:59 11/20/17 07:52 30 MG Tramadol HCl (Ultram Tab) 50 mg Q4H PRN PO 11/17/17 05:30 12/17/17 05:29 Trazodone HCl (Desyrel Tab) 25 mg HS PO 11/17/17 21:00 12/17/17 20:59 11/17/17 21:03 25 MG Polyethylene (Miralax Powder Packet) 17 gm DAILY PO 11/17/17 09:00 12/17/17 08:59 11/20/17 07:53 17 GM Prochlorperazine Edisylate 5 mg/ Syringe 5 ml @ 5 mls/min Q6H PRN IV 11/17/17 05:30 12/17/17 05:29 Magnesium Hydroxide (Milk Of Magnesia Susp) 30 ml DAILY PRN PO 11/17/17 05:30 12/17/17 05:29 11/20/17 11:48 30 ML Bisacodyl (Dulcolax Supp) 10 mg DAILY PRN [place] 11/17/17 05:30 12/17/17 05:29 Sodium Biphosphate/ Sodium Phosphate (Fleet Enema) 132 ml PRN PRN [place] 11/17/17 05:30 Haloperidol Lactate (Haldol Inj) 2 mg Q2H PRN IM 11/17/17 07:00 12/17/17 06:59 11/20/17 01:38 2 MG Haloperidol (Haldol Tab) 2 mg Q4H PRN PO 11/17/17 07:45 12/17/17 06:59 11/17/17 23:02 2 MG Hydromorphone HCl (Dilaudid Inj) 1 mg Q3HWA PRN IV 11/17/17 09:45 12/01/17 09:44 11/19/17 08:01 1 MG Magnesium Oxide (Mag-Ox Tab) 400 mg DAILY PO 11/18/17 09:00 12/18/17 08:59 11/20/17 07:53 400 MG Potassium Chloride (Klor-Con Tab) 20 meq QAM PO 11/18/17 09:00 12/18/17 08:59 11/20/17 07:52 20 MEQ Ondansetron HCl (Zofran Inj) 4 mg Q6H PRN IV 11/18/17 14:15 12/18/17 14:14 Acetaminophen (Tylenol Tab) 650 mg Q6H PRN PO 11/18/17 14:15 12/18/17 14:14 Oxycodone HCl (Roxicodone Immediate Rel Tab) 5 mg Q4H PRN PO 11/18/17 14:15 12/02/17 14:14 11/20/17 07:48 5 MG Naloxone HCl (Narcan Inj) 0.4 mg Q1M PRN IV 11/18/17 14:15 12/18/17 14:14 Senna/Docusate Sodium (Senokot S Tab) 2 tab HS PO 11/18/17 21:00 12/18/17 20:59 Clopidogrel Bisulfate (plAVix TAB) 75 mg QAM PO 11/19/17 09:00 12/19/17 08:59 11/20/17 07:51 75 MG Aspirin (Ecotrin Tab) 81 mg QAM PO 11/19/17 09:00 12/19/17 08:59 11/20/17 07:53 81 MG Albuterol/ Ipratropium (Duoneb) 3 ml Q2H PRN INH 11/19/17 02:15 12/19/17 02:14 Miscellaneous Information (Consult) 1 ea UD PRN N/A 11/19/17 09:00 12/19/17 08:59 Insulin Aspart (novoLOG ASPART) SLIDING SCALE If C... ACHS SC 11/19/17 11:00 12/19/17 10:59 11/20/17 11:48 3 UNITS Glucose (Glucose 40% Gel) 15-30 GRAMS 15 GRAMS... UD PRN PO 11/19/17 03:30 12/19/17 03:29 Glucose (Glucose Chew Tab) 4-8 Tablets 4 Tabl... UD PRN PO 11/19/17 03:30 12/19/17 03:29 Dextrose (Dextrose 50% 50ML Syringe) 25-50ML OF 50% DW IV FOR... UD PRN IV 11/19/17 03:30 12/19/17 03:29 Glucagon (Glucagon Inj) 1 mg UD PRN SQ 11/19/17 03:30 12/19/17 03:29 Piperacillin Sod/ Tazobactam Sod 3.375 gm/Dextrose 115 ml @ 28.75 mls/ hr Q8H IV 11/19/17 08:00 11/26/17 07:59 11/20/17 07:54 28.75 MLS/HR Sodium Chloride 1,000 ml @ 85 mls/hr [id number] IV 11/19/17 22:30 12/19/17 22:29 11/20/17 11:49 85 MLS/HR Carvedilol (Coreg Tab) 25 mg BID PO 11/20/17 09:00 12/20/17 08:59 11/20/17 10:07 25 MG Potassium/ Phosphorus/Sodium (Phospha 250 Neutral 155-852-130 Mg) 1 tab QID PO 11/20/17 09:00 12/20/17 08:59 11/20/17 13:26 1 TAB Olanzapine (Zyprexa Zydis Od Tab) 2.5 mg BID PO 11/20/17 09:00 12/20/17 08:59 11/20/17 09:58 2.5 MG I & O: 24-Hour Column 11/21/17 08:00 Intake Total 728 ml Output Total 250 ml Balance 478 ml Vital Signs: Date Time Temp Pulse Resp B/P (MAP) Pulse Ox O2 Delivery O2 Flow Rate FiO2 11/20/17 14:00 72 11 141/75 (97) 96 Nasal Cannula 2.0 11/20/17 12:00 Nasal Cannula 2.0 11/20/17 12:00 37.5 71 17 129/58 (81) 97 Nasal Cannula 2.0 11/20/17 10:00 79 14 136/64 (88) 99 Room Air 11/20/17 08:00 Room Air 11/20/17 08:00 78 22 176/79 (111) 88 Room Air 11/20/17 06:00 72 19 157/70 (99) 100 Oxymask 2.0 11/20/17 04:00 80 21 167/83 (111) 99 11/20/17 04:00 36.6 80 21 167/83 (111) 99 Oxymask 2.0 11/20/17 04:00 100 Oxymask 2.0 11/20/17 02:29 83 23 177/82 (113) 93 11/20/17 02:01 79 18 195/84 (121) 96 11/20/17 02:01 79 18 195/84 (121) 96 11/20/17 02:01 79 18 195/84 (121) 96 Oxymask 2.0 11/20/17 02:00 76 24 96 11/20/17 02:00 76 24 96 11/20/17 00:00 67 7 170/70 (103) 97 11/20/17 00:00 36.7 67 12 170/70 (103) 97 Oxymask 2.0 11/20/17 00:00 67 7 170/70 (103) 97 11/19/17 23:59 100 Oxymask 2.0 11/19/17 22:00 64 18 163/63 (96) 100 Oxymask 2.0 11/19/17 20:03 36.6 63 18 147/90 (109) 100 Oxymask 2.0 11/19/17 20:00 Oxymask 2.0 11/19/17 19:03 65 16 154/65 (94) 100 Oxymask 3.0 11/19/17 18:03 68 8 124/52 (76) 99 Oxymask 3.0 11/19/17 17:03 69 12 163/72 (102) 100 Oxymask 3.0 11/19/17 16:03 37.1 68 14 135/61 (85) 98 Oxymask 3.0 11/19/17 16:00 Oxymask 3.0 Laboratory Results: Last 24 Hours Test 11/19/17 16:32 11/19/17 20:10 11/20/17 00:19 11/20/17 05:38 Bedside Glucose 190 mg/dl 186 mg/dl 144 mg/dl White Blood Count 11.20 K/uL Red Blood Count 3.00 M/uL Hemoglobin 8.6 g/dL Hematocrit 27.8 % Mean Corpuscular Volume 92.7 fL Mean Corpuscular Hemoglobin 28.7 pg Mean Corpuscular Hemoglobin Concent 30.9 g/dl RDW Standard Deviation 52.7 fL RDW Coefficient of Variation 15.4 % Platelet Count 218 K/uL Mean Platelet Volume 10.2 fL Sodium Level 139 mmol/L Potassium Level 3.9 mmol/L Chloride Level 105 mmol/L Carbon Dioxide Level 29 mmol/L Anion Gap 5.0 mmol/L Blood Urea Nitrogen 14 mg/dl Creatinine 0.68 mg/dl Est Creatinine Clear Calc Drug Dose 51.3 ml/min Estimated GFR () 95.1 Estimated GFR (Non- 82.0 BUN/Creatinine Ratio 21.0 Random Glucose 191 mg/dl Calcium Level 8.4 mg/dl Phosphorus Level 2.1 mg/dl Magnesium Level 2.1 mg/dl Test 11/20/17 06:34 11/20/17 11:35 11/20/17 14:44 Bedside Glucose 189 mg/dl 242 mg/dl White Blood Count 11.71 K/uL Red Blood Count 3.10 M/uL Hemoglobin 9.1 g/dL Hematocrit 28.7 % Mean Corpuscular Volume 92.6 fL Mean Corpuscular Hemoglobin 29.4 pg Mean Corpuscular Hemoglobin Concent 31.7 g/dl RDW Standard Deviation 53.1 fL RDW Coefficient of Variation 15.7 % Platelet Count 217 K/uL Mean Platelet Volume 9.3 fL
[2017-11-20] MEDS: ACETAMINOPHEN 325 MG TAB PO PRN (16:55)
--- NOTE | 2017-11-20 18:47 | Progress Note ---
Progress Note Date of Service Nov 20, 2017. Progress Note called Ms. Santosll Nohemy to give an update on the patient cellphone- no answer landline- wrong number will try tomorrow Von Bright MD
[2017-11-20] MEDS: TRAZODONE HCL 50 MG TAB PO SCH (21:00)
[2017-11-20] MEDS: DOCUSATE SODIUM/SENNA 50/8.6MG TAB PO SCH (21:00)
[2017-11-21] VITALS (14 sets, daily range): BP systolic 112–197; BP diastolic 60–102; PULSE 60–88; TEMP 36.3–37.4; O2SAT 92–100
[2017-11-21] MEDS: CLONIDINE HCL 0.1 MG TAB PO PRN ×2 (04:07→14:05)
[2017-11-21] MEDS: INSULIN ASPART 100 UNITS/ML 3 ML PEN SC SCH ×4 (06:45→21:24)
[2017-11-21] MEDS: HydrALAZINE 10 MG TAB PO SCH ×4 (07:26→21:22)
[2017-11-21] MEDS: CARVEDILOL 25 MG TAB PO SCH ×2 (07:26→19:23)
[2017-11-21] MEDS: LISINOPRIL 20 MG TAB PO SCH (07:27)
[2017-11-21] MEDS: MAGNESIUM OXIDE 400 MG TAB PO SCH (07:43)
[2017-11-21] MEDS: FERROUS GLUCONATE 324 MG TAB PO SCH (07:43)
[2017-11-21] MEDS: CLOPIDOGREL BISULFATE 75 MG TAB PO SCH (07:44)
[2017-11-21] MEDS: ASPIRIN 81 MG ECTAB PO SCH (07:44)
[2017-11-21] MEDS: ESCITALOPRAM OXALATE 10 MG TAB PO SCH (07:44)
[2017-11-21] MEDS: POT PHOSPHATE MONOBASIC W/ SOD TAB PO SCH ×4 (07:44→19:19)
[2017-11-21] MEDS: ATORVASTATIN 20 MG TAB PO SCH (07:44)
[2017-11-21] MEDS: OLANZAPINE ZYDIS 5 MG ORALLY DIS. TAB PO SCH ×2 (07:45→19:22)
[2017-11-21] MEDS: POTASSIUM CHLORIDE 20 MEQ TABCR PO SCH (07:45)
[2017-11-21] MEDS: POLYETHYLENE (MIRALAX) 17 GM PACK PO SCH (07:46)
[2017-11-21] MEDS ORDERED: HydrALAZINE 10 MG TAB PO ONE (09:00)
[2017-11-21 09:36] LABS: HEMATOCRIT 25.6 % (37-47); MEAN CELL VOLUME 92.1 fL (80-100); MEAN CORPUSCULAR HEMOGLOBIN 28.8 pg (25-34); MEAN CORPUSCULAR HGB CONC 31.3 g/dl (32-36); MEAN PLATELET VOLUME 9.7 fL (7.4-10.4); PLATELET COUNT 210 K/uL (130-400); RED CELL DISTRIBUTION WIDTH CV 15.3 % (11.5-14.5); RED CELL DISTRIBUTION WIDTH SD 52.4 fL (36.4-46.3); WHITE BLOOD COUNT 8.22 K/uL (4.8-10.8)
[2017-11-21] MEDS: INSULIN GLARGINE SOLOSTAR 100 UNITS/ML 3 ML PEN SC SCH (09:47)
--- NOTE | 2017-11-21 09:54 | Progress Note ---
Medicine Progress Note Date & Time of Visit: Nov 21, 2017 at 09:49. Subjective no acute events overnight more calm, cooperative oriented x 2 denies headache, chest pain, dyspnea has occasional cough, with white sputum denies hip pain no other symptoms Objective Last 8 Hrs Date Time Temp Pulse Resp B/P (MAP) Pulse Ox O2 Delivery O2 Flow Rate FiO2 11/21/17 08:00 Nasal Cannula 2.0 11/21/17 08:00 Nasal Cannula 11/21/17 08:00 36.7 88 24 160/78 (105) 92 Nasal Cannula 2.0 11/21/17 06:00 64 14 112/96 (101) 94 Nasal Cannula 2.0 11/21/17 04:00 93 Nasal Cannula 2.0 11/21/17 04:00 36.9 69 16 197/87 (123) 94 Nasal Cannula 2.0 11/21/17 02:00 65 14 133/102 (112) 97 Nasal Cannula 2.0 Physical Exam: General- oriented x 2, not in distress, speaks in sentences with no effort Head- no obvious head trauma Eyes- anicteric ENT- oropharynx clear Neck- supple, no JVD Lungs- clear breath sounds bilaterally, no rales/wheezes Heart- normal rate, regular rhythm; no murmurs Abdomen- normal bowel sounds, non distended, soft, nontender Hip- Left: small area of hematoma, moderate edema, dressing in place- no discharge, bleeding, no signs of infection Extremities- no pretibial edema, no calf tenderness; Neuro- alert, oriented x 2, no other gross focal neuro deficits Skin- warm & dry Laboratory Results: Last 24 Hours Test 11/20/17 11:35 11/20/17 14:44 11/20/17 15:52 11/20/17 21:24 Bedside Glucose 242 mg/dl 135 mg/dl 177 mg/dl White Blood Count 11.71 K/uL Red Blood Count 3.10 M/uL Hemoglobin 9.1 g/dL Hematocrit 28.7 % Mean Corpuscular Volume 92.6 fL Mean Corpuscular Hemoglobin 29.4 pg Mean Corpuscular Hemoglobin Concent 31.7 g/dl RDW Standard Deviation 53.1 fL RDW Coefficient of Variation 15.7 % Platelet Count 217 K/uL Mean Platelet Volume 9.3 fL Test 11/21/17 06:02 11/21/17 09:19 Bedside Glucose 155 mg/dl White Blood Count 8.22 K/uL Red Blood Count 2.78 M/uL Hemoglobin 8.0 g/dL Hematocrit 25.6 % Mean Corpuscular Volume 92.1 fL Mean Corpuscular Hemoglobin 28.8 pg Mean Corpuscular Hemoglobin Concent 31.3 g/dl RDW Standard Deviation 52.4 fL RDW Coefficient of Variation 15.3 % Platelet Count 210 K/uL Mean Platelet Volume 9.7 fL Assessment & Plan This is an 82 year old female with a PMH of CAD s/p CABG, ischemic cardiomyopathy and chronic systolic CHF, uncontrolled HTN, depression/anxiety, anemia - presents with a fall and subsequent hip fracture Multiple Falls due to Ambulatory Dysfunction Left displaced basicervical femoral neck fracture 11/18/17P: s/p Left hip cephalomedullary nailing ; -- management of BP noted below -- Hg remains at ~8 appreciate Ortho Consult PT/OT Episode of Hypoxia likely from Mucous Plug back to room air afebrile resolved Zosyn discontinued has occasional cough repeat CXR Delirium on Dementia seems like underlying dementia patient delirious afterwards due to anesthesia/hypoxia/post-op Zyprexa BID added, PRN Haldol more calm, cooperative today continue usual Escitalopram, Trazodone CAD s/p CABG recent CABG in September 2017 no cardiac symptoms Cardiology consulted continue Aspirin, Plavix, Co Reg Uncontrolled HTN difficult to control blood pressure, likely worsened secondary to pain, stress Hydralazine increased to 20mg QID continue Coreg, Lisinopril 30mg daily PRN Clonidine Ischemic Cardiomyopathy Chronic Systolic CHF currently euvolemic Depression/Anxiety continue home medications Iron Deficiency Anemia Hg remains at ~8 monitor daily DVT ppx SCDs due to hematoma in the scalp DNR Disposition anticipate d/c to Rehab or SNF when medically stable and cleared by Ortho tried to call patient's daughter again this morning landline wrong number other phone number- patient does not work there anymore called number listed as housephone- no answer Current Inpatient Medications: Current Inpatient Medications Medications (Trade) Dose Ordered Sig/Helio Route Start Time Stop Time Status Last Admin Dose Admin Nitroglycerin (Nitrostat Tab) 0.4 mg UD PRN SL 11/17/17 05:30 12/17/17 05:29 Atorvastatin Calcium (Lipitor Tab) 20 mg DAILY PO 11/17/17 09:00 12/17/17 08:59 11/21/17 07:44 20 MG Escitalopram Oxalate (Lexapro Tab) 10 mg DAILY PO 11/17/17 09:00 12/17/17 08:59 11/21/17 07:44 10 MG Ferrous Gluconate (Ferrous Gluconate Tab) 324 mg QAM PO 11/17/17 09:00 12/17/17 08:59 11/21/17 07:43 324 MG Lisinopril (Zestril Tab) 30 mg DAILY PO 11/17/17 09:00 12/17/17 08:59 11/21/17 07:27 30 MG Tramadol HCl (Ultram Tab) 50 mg Q4H PRN PO 11/17/17 05:30 12/17/17 05:29 Trazodone HCl (Desyrel Tab) 25 mg HS PO 11/17/17 21:00 12/17/17 20:59 11/17/17 21:03 25 MG Polyethylene (Miralax Powder Packet) 17 gm DAILY PO 11/17/17 09:00 12/17/17 08:59 11/21/17 07:46 17 GM Prochlorperazine Edisylate 5 mg/ Syringe 5 ml @ 5 mls/min Q6H PRN IV 11/17/17 05:30 12/17/17 05:29 Magnesium Hydroxide (Milk Of Magnesia Susp) 30 ml DAILY PRN PO 11/17/17 05:30 12/17/17 05:29 11/20/17 11:48 30 ML Bisacodyl (Dulcolax Supp) 10 mg DAILY PRN [place] 11/17/17 05:30 12/17/17 05:29 Sodium Biphosphate/ Sodium Phosphate (Fleet Enema) 132 ml PRN PRN [place] 11/17/17 05:30 Haloperidol Lactate (Haldol Inj) 2 mg Q2H PRN IM 11/17/17 07:00 12/17/17 06:59 11/20/17 01:38 2 MG Haloperidol (Haldol Tab) 2 mg Q4H PRN PO 11/17/17 07:45 12/17/17 06:59 11/17/17 23:02 2 MG Hydromorphone HCl (Dilaudid Inj) 1 mg Q3HWA PRN IV 11/17/17 09:45 12/01/17 09:44 11/19/17 08:01 1 MG Magnesium Oxide (Mag-Ox Tab) 400 mg DAILY PO 11/18/17 09:00 12/18/17 08:59 11/21/17 07:43 400 MG Potassium Chloride (Klor-Con Tab) 20 meq QAM PO 11/18/17 09:00 12/18/17 08:59 11/21/17 07:45 20 MEQ Ondansetron HCl (Zofran Inj) 4 mg Q6H PRN IV 11/18/17 14:15 12/18/17 14:14 Acetaminophen (Tylenol Tab) 650 mg Q6H PRN PO 11/18/17 14:15 12/18/17 14:14 11/20/17 16:55 650 MG Oxycodone HCl (Roxicodone Immediate Rel Tab) 5 mg Q4H PRN PO 11/18/17 14:15 12/02/17 14:14 11/20/17 07:48 5 MG Naloxone HCl (Narcan Inj) 0.4 mg Q1M PRN IV 11/18/17 14:15 12/18/17 14:14 Senna/Docusate Sodium (Senokot S Tab) 2 tab HS PO 11/18/17 21:00 12/18/17 20:59 Clopidogrel Bisulfate (plAVix TAB) 75 mg QAM PO 11/19/17 09:00 12/19/17 08:59 11/21/17 07:44 75 MG Aspirin (Ecotrin Tab) 81 mg QAM PO 11/19/17 09:00 12/19/17 08:59 11/21/17 07:44 81 MG Albuterol/ Ipratropium (Duoneb) 3 ml Q2H PRN INH 11/19/17 02:15 12/19/17 02:14 Insulin Aspart (novoLOG ASPART) SLIDING SCALE If C... ACHS SC 11/19/17 11:00 12/19/17 10:59 11/20/17 11:48 3 UNITS Glucose (Glucose 40% Gel) 15-30 GRAMS 15 GRAMS... UD PRN PO 11/19/17 03:30 12/19/17 03:29 Glucose (Glucose Chew Tab) 4-8 Tablets 4 Tabl... UD PRN PO 11/19/17 03:30 12/19/17 03:29 Dextrose (Dextrose 50% 50ML Syringe) 25-50ML OF 50% DW IV FOR... UD PRN IV 11/19/17 03:30 12/19/17 03:29 Glucagon (Glucagon Inj) 1 mg UD PRN SQ 11/19/17 03:30 12/19/17 03:29 Carvedilol (Coreg Tab) 25 mg BID PO 11/20/17 09:00 12/20/17 08:59 11/21/17 07:26 25 MG Potassium/ Phosphorus/Sodium (Phospha 250 Neutral 155-852-130 Mg) 1 tab QID PO 11/20/17 09:00 12/20/17 08:59 11/21/17 07:44 1 TAB Olanzapine (Zyprexa Zydis Od Tab) 2.5 mg BID PO 11/20/17 09:00 12/20/17 08:59 11/21/17 07:45 2.5 MG Clonidine HCl (Catapres Tab) 0.1 mg Q6H PRN PO 11/20/17 18:30 12/20/17 18:29 11/21/17 04:07 0.1 MG Hydralazine HCl (Apresoline Tab) 20 mg QID PO 11/21/17 13:00 12/17/17 12:59 Insulin Glargine (Lantus Solostar Pen) 5 units QAM SC 11/21/17 10:00 12/21/17 09:59 11/21/17 09:47 5 UNITS
[2017-11-21 10:06] LABS: CALCIUM 8.3 mg/dl (8.5-10.1); CREATININE 0.54 mg/dl (0.60-1.20); PHOSPHORUS 1.9 mg/dl (2.5-4.9); POTASSIUM 3.8 mmol/L (3.5-5.1)
--- NOTE | 2017-11-21 11:23 | DIAGNOSTIC IMAGING REPORT ---
CHEST ONE VIEW PORTABLE HISTORY: 82 years-old Female r/o pneumonia acute shortness of breath COMPARISON: Chest radiograph 11/19/2017 TECHNIQUE: Portable AP view of the chest FINDINGS: Cardiac silhouette is again mildly enlarged, unchanged. Prior median sternotomy. Atherosclerosis of the aorta. There is no pneumothorax. Mild blunting of the costophrenic angles with subsegmental bibasilar opacities. No overt pulmonary edema. Bones of the chest appear grossly intact. IMPRESSION: 1. Cardiomegaly without overt pulmonary edema. 2. Trace bilateral pleural effusions with subsegmental bibasilar opacities favoring atelectasis with pneumonitis also within the differential. The above report was generated using voice recognition software. It may contain grammatical, syntax or spelling errors. Electronically signed by: Keith Pompa M.D. 11/21/2017 11:22 AM Dictated Date/Time: 11/21/2017 11:20 AM
--- NOTE | 2017-11-21 15:09 | Consultant Recommendations ---
Executive Cyber Leader Recommendations Date of Service Nov 21, 2017. Executive Cyber Leader Recommendations U DISCHARGE INSTRUCTIONS: HIP FRACTURE SELF CARE INSTRUCTIONS: A. You are to ambulate with a walker or crutches for approximately 6 weeks. B. You are TOE TOUCH WEIGHT BEARING on your operative lower extremity for at least 6 weeks. C. Wear low heeled shoes with non-slip soles D. Be sure that your floors are free of things that could trip you throw rugs, electrical cords, and small objects. Avoid wet and waxed floors, especially with crutches/walker/cane. E. Try to walk several times a day with rest periods between. F. You may shower 48 hours after surgery and get the incision area wet, but DO NOT soak or submerge incision area in water. (No baths, swimming pools, hot tubs ) G. Change dressing daily. If wound is dry, you may leave it to the open air. Keep covered if vimal are catching on your clothes. If incision is leaking through the dressing, please call the office . H. Do NOT apply soap or any ointment/lotions directly over incision. I. You may use ice as needed to operative site. SPECIAL CARE INSTRUCTIONS: VERY IMPORTANT TO READ AND REVIEW A. You may be at risk for phlebitis or blood clots. a. Wear surgical stockings (ZULEIKA hose) for 2 weeks after surgery to improve circulation and reduce swelling. b. Take ASPIRIN and Plavix as directed. This is your blood thinner. c. If you are on Coumadin- you will have daily/weekly blood work to monitor your levels. This will be done by either your family physician/ fiction writer (if you are on Coumadin chronically) versus your orthopedic surgeon. Expect a phone call the day of or the day after your blood work is drawn to adjust your dose accordingly. B. There are a few signs you need to watch for after you are home. Call [facility] at [phone] if you experience any of the following: a. If you have a temperature of 101 degrees or higher. b. Sudden increase in pain in your hip not relieved by rest or pain medication. c. Any fluid or drainage from the incision; redness of the incision. d. Shortness of breath or chest pain. C. Call your physician if: a. Temperature is greater than 101 degrees (F). b. Pain is not relieved by prescribed pain medications. c. Increase drainage or redness from incision. d. Unanswered questions or concerns. D. Pain Medication: a. You will be prescribed pain medication upon discharge that should last till your first post-operative appointment. b. If you experience nausea and/or skin rash, discontinue this medication and contact our office for an alternative medication. c. Caution- narcotic pain medication can cause constipation. FOLLOW UP VISIT: Please call [facility] at [phone] to schedule a follow up appointment 10-14 days from the date of your surgery date.
--- NOTE | 2017-11-21 16:56 | Orthopedic Progress Note ---
Orthopedic Progress Note Date of Service Nov 21, 2017. Subjective Post OP Day: 3 Reports: feeling well Additional Notes: States her operative hip hurts off and on but no worse than before. No new complaints orthopedically. Objective calves soft nontender, N/V intact, dressing C/D/I, toes mobile Date Time Temp Pulse Resp B/P (MAP) Pulse Ox O2 Delivery O2 Flow Rate FiO2 11/21/17 16:29 37.1 65 22 177/60 (99) 92 Nasal Cannula 2.0 11/21/17 15:43 36.3 71 18 162/78 (106) 92 Room Air 11/21/17 14:00 36.7 71 18 188/70 (109) 95 Nasal Cannula 2.0 11/21/17 12:00 Nasal Cannula 2.0 11/21/17 12:00 36.7 72 18 166/84 (111) 95 Nasal Cannula 2.0 11/21/17 10:00 36.7 67 18 163/71 (101) 97 Nasal Cannula 2.0 11/21/17 08:00 Nasal Cannula 2.0 11/21/17 08:00 Nasal Cannula 11/21/17 08:00 36.7 88 24 160/78 (105) 92 Nasal Cannula 2.0 11/21/17 06:00 64 14 112/96 (101) 94 Nasal Cannula 2.0 11/21/17 04:00 93 Nasal Cannula 2.0 11/21/17 04:00 36.9 69 16 197/87 (123) 94 Nasal Cannula 2.0 11/21/17 02:00 65 14 133/102 (112) 97 Nasal Cannula 2.0 11/21/17 00:01 36.9 60 16 151/68 (95) 100 Nasal Cannula 2.0 11/20/17 23:59 100 Nasal Cannula 2.0 11/20/17 22:00 67 16 168/70 (102) 98 Nasal Cannula 2.0 11/20/17 20:00 37.3 68 12 158/66 (96) 94 Oxymask 2.0 11/20/17 20:00 100 Oxymask 2.0 11/20/17 18:15 37.3 68 22 126/70 (88) 100 Oxymask 2.0 Laboratory Results 24 Hours: Test 11/21/17 09:19 Hematocrit 25.6 % Hemoglobin 8.0 g/dL Assessment & Plan Assessment: Status post left hip cephalomedullary nail. POD#3 Plan: -toe touch weight bearing LLE -PT/OT with assistance -Pain control -DVT ppx - restart plavix and start 81mg aspirin daily. -Telemetry for medical management Ortho will sign off at this time. Instructions placed in the EMR
[2017-11-21] MEDS ORDERED: AMPICILLIN/SULBACTAM CONSULT ACTIVE PRN (19:00)
[2017-11-21] MEDS ORDERED: AMLODIPINE BESYLATE 5 MG TAB PO ONE (19:00)
[2017-11-21] MEDS: AMPICILLIN/SULBACTAM SOD INJ 3,000 MG in SODIUM CHLORIDE 0.9% 100ML 100 ML IV SCH (19:19)
[2017-11-21] MEDS: TRAZODONE HCL 50 MG TAB PO SCH (19:20)
[2017-11-21] MEDS: DOCUSATE SODIUM/SENNA 50/8.6MG TAB PO SCH (19:21)
[2017-11-22] VITALS (12 sets, daily range): BP systolic 143–194; BP diastolic 65–86; PULSE 55–70; TEMP 36.2–36.9; O2SAT 93–97
[2017-11-22] MEDS: AMPICILLIN/SULBACTAM SOD INJ 3,000 MG in SODIUM CHLORIDE 0.9% 100ML 100 ML IV SCH ×4 (01:08→19:02)
[2017-11-22] MEDS: CLONIDINE HCL 0.1 MG TAB PO PRN (05:27)
[2017-11-22] MEDS: HydrALAZINE 10 MG TAB PO SCH (07:53)
[2017-11-22] MEDS: POT PHOSPHATE MONOBASIC W/ SOD TAB PO SCH ×4 (07:54→20:57)
[2017-11-22] MEDS: ESCITALOPRAM OXALATE 10 MG TAB PO SCH (07:54)
[2017-11-22] MEDS: ATORVASTATIN 20 MG TAB PO SCH (07:54)
[2017-11-22] MEDS: CARVEDILOL 25 MG TAB PO SCH ×2 (07:54→20:59)
[2017-11-22] MEDS: LISINOPRIL 20 MG TAB PO SCH (07:54)
[2017-11-22] MEDS: MAGNESIUM OXIDE 400 MG TAB PO SCH (08:00)
[2017-11-22] MEDS: POTASSIUM CHLORIDE 20 MEQ TABCR PO SCH (08:00)
[2017-11-22] MEDS: OLANZAPINE ZYDIS 5 MG ORALLY DIS. TAB PO SCH ×2 (08:01→20:58)
[2017-11-22] MEDS: FERROUS GLUCONATE 324 MG TAB PO SCH (08:01)
[2017-11-22] MEDS: POLYETHYLENE (MIRALAX) 17 GM PACK PO SCH (08:02)
[2017-11-22] MEDS: ASPIRIN 81 MG ECTAB PO SCH (08:02)
[2017-11-22] MEDS: CLOPIDOGREL BISULFATE 75 MG TAB PO SCH (08:02)
[2017-11-22] MEDS: INSULIN ASPART 100 UNITS/ML 3 ML PEN SC SCH ×4 (08:21→20:31)
[2017-11-22] MEDS: INSULIN GLARGINE SOLOSTAR 100 UNITS/ML 3 ML PEN SC SCH (08:21)
[2017-11-22] MEDS ORDERED: AMLODIPINE BESYLATE 5 MG TAB PO SCH (09:00)
[2017-11-22] MEDS: HALOPERIDOL 1 MG TAB PO PRN (10:18)
[2017-11-22] MEDS: ACETAMINOPHEN 325 MG TAB PO PRN (10:49)
[2017-11-22 12:12] LABS: BASO % 0.4 %; BASO ABS # 0.04 K/uL (0-0.2); EOS % 0.8 %; EOS ABS # 0.07 K/uL (0-0.5); HEMATOCRIT 29.6 % (37-47); HEMOGLOBIN 9.6 g/dL (12.0-16.0); IG# 0.03 K/uL (0.00-0.02); LYMPH % 14.3 %; LYMPH ABS # 1.28 K/uL (1.2-3.4); MEAN CELL VOLUME 90.2 fL (80-100); MEAN CORPUSCULAR HEMOGLOBIN 29.3 pg (25-34); MEAN CORPUSCULAR HGB CONC 32.4 g/dl (32-36); MEAN PLATELET VOLUME 10.2 fL (7.4-10.4); MONO % 8.3 %; MONO ABS # 0.74 K/uL (0.11-0.59); NEUT % 75.9 %; NEUT ABS # 6.77 K/uL (1.4-6.5); PLATELET COUNT 258 K/uL (130-400); RED CELL DISTRIBUTION WIDTH CV 15.4 % (11.5-14.5); RED CELL DISTRIBUTION WIDTH SD 50.5 fL (36.4-46.3); WHITE BLOOD COUNT 8.93 K/uL (4.8-10.8)
[2017-11-22 12:42] LABS: CREATININE 0.59 mg/dl (0.60-1.20)
[2017-11-22 12:43] LABS: CALCIUM 8.7 mg/dl (8.5-10.1); POTASSIUM 3.6 mmol/L (3.5-5.1)
[2017-11-22 12:44] LABS: PHOSPHORUS 3.1 mg/dl (2.5-4.9)
[2017-11-22] MEDS: ACETAMINOPHEN IV 650 MG in EMPTY BAG 0 ML IV SCH ×2 (18:28→22:19)
[2017-11-22] MEDS: DOCUSATE SODIUM/SENNA 50/8.6MG TAB PO SCH (20:58)
[2017-11-22] MEDS: TRAZODONE HCL 50 MG TAB PO SCH (20:59)
[2017-11-22] MEDS: AMLODIPINE BESYLATE 5 MG TAB PO SCH (21:00)
--- NOTE | 2017-11-22 21:30 | Progress Note ---
Medicine Progress Note Date & Time of Visit: Nov 22, 2017 at 21:27. Subjective seen resting in bed, comfortable intermittently confused, yelling on exam, oriented x 1, alert, follows commands reoriented, then patient is cooperative reports increased pain on the surgical site today, had PT no other symptoms Objective Last 8 Hrs Date Time Temp Pulse Resp B/P (MAP) Pulse Ox O2 Delivery O2 Flow Rate FiO2 11/22/17 20:00 95 Room Air 11/22/17 19:27 36.6 65 18 184/67 (106) 96 Room Air 11/22/17 16:00 94 Room Air 11/22/17 15:29 36.6 64 18 166/71 (102) 94 Room Air 11/22/17 13:53 148/69 (95) Physical Exam: General- oriented x 2, not in distress, speaks in sentences with no effort Head- no obvious head trauma Eyes- anicteric Neck- no JVD Lungs- clear breath sounds bilaterally, no rales, no wheezes Heart- normal rate, regular rhythm; no murmurs Abdomen- normal bowel sounds, non distended, soft, nontender Hip- Left: small area of hematoma, moderate edema, dressing in place- no discharge, bleeding, no signs of infection Extremities- no pretibial edema, no calf tenderness; Neuro- alert, oriented x 2, no other gross focal neuro deficits Skin- warm & dry Laboratory Results: Last 24 Hours Test 11/22/17 06:13 11/22/17 10:55 11/22/17 11:35 11/22/17 16:24 Bedside Glucose 190 mg/dl 208 mg/dl 280 mg/dl White Blood Count 8.93 K/uL Red Blood Count 3.28 M/uL Hemoglobin 9.6 g/dL Hematocrit 29.6 % Mean Corpuscular Volume 90.2 fL Mean Corpuscular Hemoglobin 29.3 pg Mean Corpuscular Hemoglobin Concent 32.4 g/dl Platelet Count 258 K/uL Mean Platelet Volume 10.2 fL Neutrophils (%) (Auto) 75.9 % Lymphocytes (%) (Auto) 14.3 % Monocytes (%) (Auto) 8.3 % Eosinophils (%) (Auto) 0.8 % Basophils (%) (Auto) 0.4 % Neutrophils # (Auto) 6.77 K/uL Lymphocytes # (Auto) 1.28 K/uL Monocytes # (Auto) 0.74 K/uL Eosinophils # (Auto) 0.07 K/uL Basophils # (Auto) 0.04 K/uL RDW Standard Deviation 50.5 fL RDW Coefficient of Variation 15.4 % Immature Granulocyte % (Auto) 0.3 % Immature Granulocyte # (Auto) 0.03 K/uL Sodium Level 140 mmol/L Potassium Level 3.6 mmol/L Chloride Level 105 mmol/L Carbon Dioxide Level 31 mmol/L Anion Gap 4.0 mmol/L Blood Urea Nitrogen 12 mg/dl Creatinine 0.59 mg/dl Est Creatinine Clear Calc Drug Dose 56.9 ml/min Estimated GFR () 99.6 Estimated GFR (Non- 86.0 BUN/Creatinine Ratio 19.5 Random Glucose 214 mg/dl Calcium Level 8.7 mg/dl Phosphorus Level 3.1 mg/dl Procalcitonin 0.10 ng/ml Test 11/22/17 20:30 Bedside Glucose 124 mg/dl Assessment & Plan This is an 82 year old female with a PMH of CAD s/p CABG, ischemic cardiomyopathy and chronic systolic CHF, uncontrolled HTN, depression/anxiety, anemia - presents with a fall and subsequent hip fracture Multiple Falls due to Ambulatory Dysfunction Left displaced basicervical femoral neck fracture 11/18/17P: s/p Left hip cephalomedullary nailing -- management of BP noted below -- Hg remains at ~8 appreciate Ortho Consult PT/OT Episode of Hypoxia likely from Mucous Plug back to room air afebrile resolved Unasyn for possible aspiration pneumonitis cough improving Delirium on Dementia seems like underlying dementia patient delirious afterwards due to anesthesia/hypoxia/post-op Zyprexa BID added, PRN Haldol somewhat more confused but reoriented easily continue usual Escitalopram, Trazodone CAD s/p CABG recent CABG in September 2017 no cardiac symptoms Cardiology consulted continue Aspirin, Plavix, Co Reg Uncontrolled HTN difficult to control blood pressure, likely worsened secondary to pain, stress Amlodipine BID Hydralazine further increased to 25mg QID continue Coreg, Lisinopril 30mg daily PRN Clonidine Ischemic Cardiomyopathy Chronic Systolic CHF currently euvolemic Depression/Anxiety continue home medications Iron Deficiency Anemia Hg remains at ~9 monitor daily DVT ppx SCDs due to hematoma in the scalp DNR Disposition anticipate d/c to Rehab or SNF when medically stable Current Inpatient Medications: Current Inpatient Medications Medications (Trade) Dose Ordered Sig/Helio Route Start Time Stop Time Status Last Admin Dose Admin Nitroglycerin (Nitrostat Tab) 0.4 mg UD PRN SL 11/17/17 05:30 12/17/17 05:29 Atorvastatin Calcium (Lipitor Tab) 20 mg DAILY PO 11/17/17 09:00 12/17/17 08:59 11/22/17 07:54 20 MG Escitalopram Oxalate (Lexapro Tab) 10 mg DAILY PO 11/17/17 09:00 12/17/17 08:59 11/22/17 07:54 10 MG Ferrous Gluconate (Ferrous Gluconate Tab) 324 mg QAM PO 11/17/17 09:00 12/17/17 08:59 11/22/17 08:01 324 MG Tramadol HCl (Ultram Tab) 50 mg Q4H PRN PO 11/17/17 05:30 12/17/17 05:29 11/22/17 11:44 50 MG Trazodone HCl (Desyrel Tab) 25 mg HS PO 11/17/17 21:00 12/17/17 20:59 11/22/17 20:59 25 MG Polyethylene (Miralax Powder Packet) 17 gm DAILY PO 11/17/17 09:00 12/17/17 08:59 11/22/17 08:02 17 GM Prochlorperazine Edisylate 5 mg/ Syringe 5 ml @ 5 mls/min Q6H PRN IV 11/17/17 05:30 12/17/17 05:29 Magnesium Hydroxide (Milk Of Magnesia Susp) 30 ml DAILY PRN PO 11/17/17 05:30 12/17/17 05:29 11/20/17 11:48 30 ML Bisacodyl (Dulcolax Supp) 10 mg DAILY PRN [place] 11/17/17 05:30 12/17/17 05:29 Sodium Biphosphate/ Sodium Phosphate (Fleet Enema) 132 ml PRN PRN [place] 11/17/17 05:30 Haloperidol Lactate (Haldol Inj) 2 mg Q2H PRN IM 11/17/17 07:00 12/17/17 06:59 11/20/17 01:38 2 MG Haloperidol (Haldol Tab) 2 mg Q4H PRN PO 11/17/17 07:45 12/17/17 06:59 11/22/17 10:18 2 MG Hydromorphone HCl (Dilaudid Inj) 1 mg Q3HWA PRN IV 11/17/17 09:45 12/01/17 09:44 11/19/17 08:01 1 MG Magnesium Oxide (Mag-Ox Tab) 400 mg DAILY PO 11/18/17 09:00 12/18/17 08:59 11/22/17 08:00 400 MG Potassium Chloride (Klor-Con Tab) 20 meq QAM PO 11/18/17 09:00 12/18/17 08:59 11/22/17 08:00 20 MEQ Ondansetron HCl (Zofran Inj) 4 mg Q6H PRN IV 11/18/17 14:15 12/18/17 14:14 Acetaminophen (Tylenol Tab) 650 mg Q6H PRN PO 11/18/17 14:15 12/18/17 14:14 Future Hold 11/22/17 10:49 650 MG Oxycodone HCl (Roxicodone Immediate Rel Tab) 5 mg Q4H PRN PO 11/18/17 14:15 12/02/17 14:14 11/20/17 07:48 5 MG Naloxone HCl (Narcan Inj) 0.4 mg Q1M PRN IV 11/18/17 14:15 12/18/17 14:14 Senna/Docusate Sodium (Senokot S Tab) 2 tab HS PO 11/18/17 21:00 12/18/17 20:59 11/21/17 19:21 2 TAB Clopidogrel Bisulfate (plAVix TAB) 75 mg QAM PO 11/19/17 09:00 12/19/17 08:59 11/22/17 08:02 75 MG Aspirin (Ecotrin Tab) 81 mg QAM PO 11/19/17 09:00 12/19/17 08:59 11/22/17 08:02 81 MG Albuterol/ Ipratropium (Duoneb) 3 ml Q2H PRN INH 11/19/17 02:15 12/19/17 02:14 Insulin Aspart (novoLOG ASPART) SLIDING SCALE If C... ACHS SC 11/19/17 11:00 12/19/17 10:59 11/22/17 16:33 3 UNITS Glucose (Glucose 40% Gel) 15-30 GRAMS 15 GRAMS... UD PRN PO 11/19/17 03:30 12/19/17 03:29 Glucose (Glucose Chew Tab) 4-8 Tablets 4 Tabl... UD PRN PO 11/19/17 03:30 12/19/17 03:29 Dextrose (Dextrose 50% 50ML Syringe) 25-50ML OF 50% DW IV FOR... UD PRN IV 11/19/17 03:30 12/19/17 03:29 Glucagon (Glucagon Inj) 1 mg UD PRN SQ 11/19/17 03:30 12/19/17 03:29 Carvedilol (Coreg Tab) 25 mg BID PO 11/20/17 09:00 12/20/17 08:59 11/22/17 20:59 25 MG Olanzapine (Zyprexa Zydis Od Tab) 2.5 mg BID PO 11/20/17 09:00 12/20/17 08:59 11/22/17 20:58 2.5 MG Clonidine HCl (Catapres Tab) 0.1 mg Q6H PRN PO 11/20/17 18:30 12/20/17 18:29 11/22/17 05:27 0.1 MG Insulin Glargine (Lantus Solostar Pen) 5 units QAM SC 11/21/17 10:00 12/21/17 09:59 11/22/17 08:21 5 UNITS Potassium/ Phosphorus/Sodium (Phospha 250 Neutral 155-852-130 Mg) 2 tab QID PO 11/21/17 21:00 12/20/17 08:59 11/22/17 20:57 2 TAB Ampicillin Sodium/ Sulbactam Sodium (Consult) 1 ea UD PRN N/A 11/21/17 19:00 12/21/17 18:59 Lisinopril (Zestril Tab) 40 mg DAILY PO 11/22/17 09:00 12/17/17 08:59 11/22/17 07:54 40 MG Ampicillin Sodium/ Sulbactam Sodium 3000 mg/Sodium Chloride 108 ml @ 216 mls/hr Q6H IV 11/21/17 19:00 11/28/17 18:59 11/22/17 19:02 216 MLS/HR Amlodipine Besylate (Norvasc Tab) 5 mg BID PO 11/22/17 21:00 12/22/17 08:59 11/22/17 21:00 5 MG Hydralazine HCl (Apresoline Tab) 25 mg QID PO 11/22/17 13:00 12/22/17 12:59 11/22/17 18:29 25 MG Acetaminophen 650 mg/Empty Bag 65 ml @ 260 mls/hr Q6H IV 11/22/17 16:30 12/22/17 16:29 11/22/17 18:28 260 MLS/HR
[2017-11-23] VITALS (11 sets, daily range): BP systolic 135–187; BP diastolic 65–77; PULSE 61–77; TEMP 36.6–37; O2SAT 92–95
[2017-11-23] MEDS: AMPICILLIN/SULBACTAM SOD INJ 3,000 MG in SODIUM CHLORIDE 0.9% 100ML 100 ML IV SCH ×4 (01:03→19:24)
[2017-11-23] MEDS: CLONIDINE HCL 0.1 MG TAB PO PRN (03:14)
[2017-11-23] MEDS: ACETAMINOPHEN IV 650 MG in EMPTY BAG 0 ML IV SCH ×4 (04:28→22:45)
[2017-11-23 06:36] LABS: BASO % 0.4 %; BASO ABS # 0.03 K/uL (0-0.2); EOS % 1.6 %; EOS ABS # 0.13 K/uL (0-0.5); HEMATOCRIT 26.5 % (37-47); HEMOGLOBIN 8.6 g/dL (12.0-16.0); IG# 0.02 K/uL (0.00-0.02); LYMPH % 18.1 %; MEAN CELL VOLUME 89.2 fL (80-100); MEAN CORPUSCULAR HGB CONC 32.5 g/dl (32-36); MEAN PLATELET VOLUME 9.8 fL (7.4-10.4); MONO % 6.3 %; MONO ABS # 0.52 K/uL (0.11-0.59); NEUT % 73.4 %; NEUT ABS # 6.11 K/uL (1.4-6.5); PLATELET COUNT 256 K/uL (130-400); RED CELL DISTRIBUTION WIDTH CV 15.5 % (11.5-14.5); RED CELL DISTRIBUTION WIDTH SD 50.8 fL (36.4-46.3); WHITE BLOOD COUNT 8.31 K/uL (4.8-10.8)
[2017-11-23] MEDS: INSULIN ASPART 100 UNITS/ML 3 ML PEN SC SCH ×4 (07:00→21:04)
[2017-11-23 07:12] LABS: CALCIUM 8.2 mg/dl (8.5-10.1); CREATININE 0.47 mg/dl (0.60-1.20); PHOSPHORUS 4.5 mg/dl (2.5-4.9); POTASSIUM 3.2 mmol/L (3.5-5.1)
[2017-11-23] MEDS: ASPIRIN 81 MG ECTAB PO SCH (08:35)
[2017-11-23] MEDS: CARVEDILOL 25 MG TAB PO SCH ×2 (08:35→20:54)
[2017-11-23] MEDS: FERROUS GLUCONATE 324 MG TAB PO SCH (08:35)
[2017-11-23] MEDS: POTASSIUM CHLORIDE 20 MEQ TABCR PO SCH (08:36)
[2017-11-23] MEDS: ATORVASTATIN 20 MG TAB PO SCH (08:37)
[2017-11-23] MEDS: AMLODIPINE BESYLATE 5 MG TAB PO SCH ×2 (08:38→20:55)
[2017-11-23] MEDS: POLYETHYLENE (MIRALAX) 17 GM PACK PO SCH (08:38)
[2017-11-23] MEDS: MAGNESIUM OXIDE 400 MG TAB PO SCH (08:38)
[2017-11-23] MEDS: ESCITALOPRAM OXALATE 10 MG TAB PO SCH (08:38)
[2017-11-23] MEDS: LISINOPRIL 20 MG TAB PO SCH (08:39)
[2017-11-23] MEDS: CLOPIDOGREL BISULFATE 75 MG TAB PO SCH (08:39)
[2017-11-23] MEDS: OLANZAPINE ZYDIS 5 MG ORALLY DIS. TAB PO SCH ×2 (08:40→20:56)
[2017-11-23] MEDS: INSULIN GLARGINE SOLOSTAR 100 UNITS/ML 3 ML PEN SC SCH (09:53)
[2017-11-23] MEDS: HALOPERIDOL LACTATE 5 MG/ML 1 ML VIAL IM PRN ×2 (14:03→23:27)
[2017-11-23] MEDS: HALOPERIDOL 1 MG TAB PO PRN (14:07)
--- NOTE | 2017-11-23 20:17 | Progress Note ---
Medicine Progress Note Date & Time of Visit: Nov 23, 2017 at 20:17. Objective Last 8 Hrs Date Time Temp Pulse Resp B/P (MAP) Pulse Ox O2 Delivery O2 Flow Rate FiO2 11/23/17 19:29 36.6 69 18 156/70 (98) 92 Room Air 11/23/17 16:00 95 Room Air 11/23/17 15:25 36.6 64 18 150/67 (94) 95 Room Air Physical Exam: General- oriented x 2, not in distress, speaks in sentences with no effort Head- no obvious head trauma Eyes- anicteric Neck- no JVD Lungs- clear breath sounds bilaterally, no rales, no wheezes Heart- normal rate, regular rhythm; no murmurs Abdomen- normal bowel sounds, non distended, soft, nontender Hip- Left: small area of hematoma, moderate edema, dressing in place- no discharge, bleeding, no signs of infection Extremities- no pretibial edema, no calf tenderness; Neuro- alert, oriented x 2, no other gross focal neuro deficits Skin- warm & dry Laboratory Results: Last 24 Hours Test 11/22/17 20:30 11/23/17 06:08 11/23/17 06:26 11/23/17 11:37 Bedside Glucose 124 mg/dl 161 mg/dl 261 mg/dl White Blood Count 8.31 K/uL Red Blood Count 2.97 M/uL Hemoglobin 8.6 g/dL Hematocrit 26.5 % Mean Corpuscular Volume 89.2 fL Mean Corpuscular Hemoglobin 29.0 pg Mean Corpuscular Hemoglobin Concent 32.5 g/dl Platelet Count 256 K/uL Mean Platelet Volume 9.8 fL Neutrophils (%) (Auto) 73.4 % Lymphocytes (%) (Auto) 18.1 % Monocytes (%) (Auto) 6.3 % Eosinophils (%) (Auto) 1.6 % Basophils (%) (Auto) 0.4 % Neutrophils # (Auto) 6.11 K/uL Lymphocytes # (Auto) 1.50 K/uL Monocytes # (Auto) 0.52 K/uL Eosinophils # (Auto) 0.13 K/uL Basophils # (Auto) 0.03 K/uL RDW Standard Deviation 50.8 fL RDW Coefficient of Variation 15.5 % Immature Granulocyte % (Auto) 0.2 % Immature Granulocyte # (Auto) 0.02 K/uL Large Platelets 1+ Sodium Level 142 mmol/L Potassium Level 3.2 mmol/L Chloride Level 106 mmol/L Carbon Dioxide Level 30 mmol/L Anion Gap 6.0 mmol/L Blood Urea Nitrogen 9 mg/dl Creatinine 0.47 mg/dl Est Creatinine Clear Calc Drug Dose 71.4 ml/min Estimated GFR () 107.4 Estimated GFR (Non- 92.6 BUN/Creatinine Ratio 19.7 Random Glucose 160 mg/dl Calcium Level 8.2 mg/dl Phosphorus Level 4.5 mg/dl Test 11/23/17 16:29 Bedside Glucose 129 mg/dl Assessment & Plan This is an 82 year old female with a PMH of CAD s/p CABG, ischemic cardiomyopathy and chronic systolic CHF, uncontrolled HTN, depression/anxiety, anemia - presents with a fall and subsequent hip fracture Multiple Falls due to Ambulatory Dysfunction Left displaced basicervical femoral neck fracture 11/18/17P: s/p Left hip cephalomedullary nailing -- management of BP noted below -- Hg remains at ~8 appreciate Ortho Consult PT/OT Episode of Hypoxia likely from Mucous Plug back to room air afebrile resolved Unasyn for possible aspiration pneumonitis cough improving Delirium on Dementia seems like underlying dementia patient delirious afterwards due to anesthesia/hypoxia/post-op Zyprexa BID added, PRN Haldol somewhat more confused but reoriented easily continue usual Escitalopram, Trazodone CAD s/p CABG recent CABG in September 2017 no cardiac symptoms Cardiology consulted continue Aspirin, Plavix, Co Reg Uncontrolled HTN difficult to control blood pressure, likely worsened secondary to pain, stress Amlodipine BID Hydralazine further increased to 25mg QID continue Coreg, Lisinopril 30mg daily PRN Clonidine Ischemic Cardiomyopathy Chronic Systolic CHF currently euvolemic Depression/Anxiety continue home medications Iron Deficiency Anemia Hg remains at ~9 monitor daily DVT ppx SCDs due to hematoma in the scalp DNR Disposition anticipate d/c to Rehab or SNF when medically stable Current Inpatient Medications: Current Inpatient Medications Medications (Trade) Dose Ordered Sig/Helio Route Start Time Stop Time Status Last Admin Dose Admin Nitroglycerin (Nitrostat Tab) 0.4 mg UD PRN SL 11/17/17 05:30 12/17/17 05:29 Atorvastatin Calcium (Lipitor Tab) 20 mg DAILY PO 11/17/17 09:00 12/17/17 08:59 3/9/18 08:37 20 MG Escitalopram Oxalate (Lexapro Tab) 10 mg DAILY PO 11/17/17 09:00 12/17/17 08:59 11/23/17 08:38 10 MG Ferrous Gluconate (Ferrous Gluconate Tab) 324 mg QAM PO 11/17/17 09:00 12/17/17 08:59 11/23/17 08:35 324 MG Tramadol HCl (Ultram Tab) 50 mg Q4H PRN PO 11/17/17 05:30 12/17/17 05:29 11/22/17 11:44 50 MG Trazodone HCl (Desyrel Tab) 25 mg HS PO 11/17/17 21:00 12/17/17 20:59 11/22/17 20:59 25 MG Polyethylene (Miralax Powder Packet) 17 gm DAILY PO 11/17/17 09:00 12/17/17 08:59 11/23/17 08:38 17 GM Prochlorperazine Edisylate 5 mg/ Syringe 5 ml @ 5 mls/min Q6H PRN IV 11/17/17 05:30 12/17/17 05:29 Magnesium Hydroxide (Milk Of Magnesia Susp) 30 ml DAILY PRN PO 11/17/17 05:30 12/17/17 05:29 11/20/17 11:48 30 ML Bisacodyl (Dulcolax Supp) 10 mg DAILY PRN [place] 11/17/17 05:30 12/17/17 05:29 Sodium Biphosphate/ Sodium Phosphate (Fleet Enema) 132 ml PRN PRN [place] 11/17/17 05:30 Haloperidol Lactate (Haldol Inj) 2 mg Q2H PRN IM 11/17/17 07:00 12/17/17 06:59 11/23/17 14:03 2 MG Haloperidol (Haldol Tab) 2 mg Q4H PRN PO 11/17/17 07:45 12/17/17 06:59 11/23/17 14:07 2 MG Hydromorphone HCl (Dilaudid Inj) 1 mg Q3HWA PRN IV 11/17/17 09:45 12/01/17 09:44 11/19/17 08:01 1 MG Magnesium Oxide (Mag-Ox Tab) 400 mg DAILY PO 11/18/17 09:00 12/18/17 08:59 11/23/17 08:38 400 MG Potassium Chloride (Klor-Con Tab) 20 meq QAM PO 11/18/17 09:00 12/18/17 08:59 11/23/17 08:36 20 MEQ Ondansetron HCl (Zofran Inj) 4 mg Q6H PRN IV 11/18/17 14:15 12/18/17 14:14 Acetaminophen (Tylenol Tab) 650 mg Q6H PRN PO 11/18/17 14:15 12/18/17 14:14 Future Hold 11/22/17 10:49 650 MG Oxycodone HCl (Roxicodone Immediate Rel Tab) 5 mg Q4H PRN PO 11/18/17 14:15 12/02/17 14:14 11/20/17 07:48 5 MG Naloxone HCl (Narcan Inj) 0.4 mg Q1M PRN IV 11/18/17 14:15 12/18/17 14:14 Senna/Docusate Sodium (Senokot S Tab) 2 tab HS PO 11/18/17 21:00 12/18/17 20:59 11/21/17 19:21 2 TAB Clopidogrel Bisulfate (plAVix TAB) 75 mg QAM PO 11/19/17 09:00 12/19/17 08:59 11/23/17 08:39 75 MG Aspirin (Ecotrin Tab) 81 mg QAM PO 11/19/17 09:00 12/19/17 08:59 11/23/17 08:35 81 MG Albuterol/ Ipratropium (Duoneb) 3 ml Q2H PRN INH 11/19/17 02:15 12/19/17 02:14 Insulin Aspart (novoLOG ASPART) SLIDING SCALE If C... ACHS SC 11/19/17 11:00 12/19/17 10:59 11/23/17 12:32 3 UNITS Glucose (Glucose 40% Gel) 15-30 GRAMS 15 GRAMS... UD PRN PO 11/19/17 03:30 12/19/17 03:29 Glucose (Glucose Chew Tab) 4-8 Tablets 4 Tabl... UD PRN PO 11/19/17 03:30 12/19/17 03:29 Dextrose (Dextrose 50% 50ML Syringe) 25-50ML OF 50% DW IV FOR... UD PRN IV 11/19/17 03:30 12/19/17 03:29 Glucagon (Glucagon Inj) 1 mg UD PRN SQ 11/19/17 03:30 12/19/17 03:29 Carvedilol (Coreg Tab) 25 mg BID PO 11/20/17 09:00 12/20/17 08:59 11/23/17 08:35 25 MG Olanzapine (Zyprexa Zydis Od Tab) 2.5 mg BID PO 11/20/17 09:00 12/20/17 08:59 11/23/17 08:40 2.5 MG Clonidine HCl (Catapres Tab) 0.1 mg Q6H PRN PO 11/20/17 18:30 12/20/17 18:29 11/23/17 03:14 0.1 MG Insulin Glargine (Lantus Solostar Pen) 5 units QAM SC 11/21/17 10:00 12/21/17 09:59 11/23/17 09:53 5 UNITS Ampicillin Sodium/ Sulbactam Sodium (Consult) 1 ea UD PRN N/A 11/21/17 19:00 12/21/17 18:59 Lisinopril (Zestril Tab) 40 mg DAILY PO 11/22/17 09:00 12/17/17 08:59 11/23/17 08:39 40 MG Ampicillin Sodium/ Sulbactam Sodium 3000 mg/Sodium Chloride 108 ml @ 216 mls/hr Q6H IV 11/21/17 19:00 11/28/17 18:59 11/23/17 19:24 216 MLS/HR Amlodipine Besylate (Norvasc Tab) 5 mg BID PO 11/22/17 21:00 12/22/17 08:59 11/23/17 08:38 5 MG Hydralazine HCl (Apresoline Tab) 25 mg QID PO 11/22/17 13:00 12/22/17 12:59 11/23/17 16:47 25 MG Acetaminophen 650 mg/Empty Bag 65 ml @ 260 mls/hr Q6H IV 11/22/17 16:30 12/22/17 16:29 11/23/17 16:46 260 MLS/HR
[2017-11-23] MEDS ORDERED: POTASSIUM CHLORIDE 20 MEQ TABCR PO ONE (20:30)
--- NOTE | 2017-11-23 20:41 | Progress Note ---
Medicine Progress Note Date & Time of Visit: Nov 23, 2017 at 20:41. Objective Last 8 Hrs Date Time Temp Pulse Resp B/P (MAP) Pulse Ox O2 Delivery O2 Flow Rate FiO2 11/23/17 19:29 36.6 69 18 156/70 (98) 92 Room Air 11/23/17 16:00 95 Room Air 11/23/17 15:25 36.6 64 18 150/67 (94) 95 Room Air Physical Exam: General- oriented x 2, not in distress, speaks in sentences with no effort Head- no obvious head trauma Eyes- anicteric Neck- no JVD Lungs- clear breath sounds bilaterally, no rales, no wheezes Heart- normal rate, regular rhythm; no murmurs Abdomen- normal bowel sounds, non distended, soft, nontender Hip- Left: small area of hematoma, moderate edema, dressing in place- no discharge, bleeding, no signs of infection Extremities- no pretibial edema, no calf tenderness; Neuro- alert, oriented x 2, no other gross focal neuro deficits Skin- warm & dry Laboratory Results: Last 24 Hours Test 11/23/17 06:08 11/23/17 06:26 11/23/17 11:37 11/23/17 16:29 White Blood Count 8.31 K/uL Red Blood Count 2.97 M/uL Hemoglobin 8.6 g/dL Hematocrit 26.5 % Mean Corpuscular Volume 89.2 fL Mean Corpuscular Hemoglobin 29.0 pg Mean Corpuscular Hemoglobin Concent 32.5 g/dl Platelet Count 256 K/uL Mean Platelet Volume 9.8 fL Neutrophils (%) (Auto) 73.4 % Lymphocytes (%) (Auto) 18.1 % Monocytes (%) (Auto) 6.3 % Eosinophils (%) (Auto) 1.6 % Basophils (%) (Auto) 0.4 % Neutrophils # (Auto) 6.11 K/uL Lymphocytes # (Auto) 1.50 K/uL Monocytes # (Auto) 0.52 K/uL Eosinophils # (Auto) 0.13 K/uL Basophils # (Auto) 0.03 K/uL RDW Standard Deviation 50.8 fL RDW Coefficient of Variation 15.5 % Immature Granulocyte % (Auto) 0.2 % Immature Granulocyte # (Auto) 0.02 K/uL Large Platelets 1+ Sodium Level 142 mmol/L Potassium Level 3.2 mmol/L Chloride Level 106 mmol/L Carbon Dioxide Level 30 mmol/L Anion Gap 6.0 mmol/L Blood Urea Nitrogen 9 mg/dl Creatinine 0.47 mg/dl Est Creatinine Clear Calc Drug Dose 71.4 ml/min Estimated GFR () 107.4 Estimated GFR (Non- 92.6 BUN/Creatinine Ratio 19.7 Random Glucose 160 mg/dl Calcium Level 8.2 mg/dl Phosphorus Level 4.5 mg/dl Bedside Glucose 161 mg/dl 261 mg/dl 129 mg/dl Test 11/23/17 20:10 Bedside Glucose 243 mg/dl Assessment & Plan This is an 82 year old female with a PMH of CAD s/p CABG, ischemic cardiomyopathy and chronic systolic CHF, uncontrolled HTN, depression/anxiety, anemia - presents with a fall and subsequent hip fracture Multiple Falls due to Ambulatory Dysfunction Left displaced basicervical femoral neck fracture 11/18/17P: s/p Left hip cephalomedullary nailing -- management of BP noted below -- Hg remains at ~8 appreciate Ortho Consult PT/OT Episode of Hypoxia likely from Mucous Plug back to room air afebrile resolved Unasyn for possible aspiration pneumonitis cough improving Delirium on Dementia seems like underlying dementia patient delirious afterwards due to anesthesia/hypoxia/post-op Zyprexa BID added, PRN Haldol somewhat more confused but reoriented easily continue usual Escitalopram, Trazodone CAD s/p CABG recent CABG in September 2017 no cardiac symptoms Cardiology consulted continue Aspirin, Plavix, Co Reg Uncontrolled HTN difficult to control blood pressure, likely worsened secondary to pain, stress Amlodipine BID Hydralazine further increased to 25mg QID continue Coreg, Lisinopril 30mg daily PRN Clonidine Ischemic Cardiomyopathy Chronic Systolic CHF currently euvolemic Depression/Anxiety continue home medications Iron Deficiency Anemia Hg remains at ~9 monitor daily DVT ppx SCDs due to hematoma in the scalp DNR Disposition anticipate d/c to Rehab or SNF when medically stable Current Inpatient Medications: Current Inpatient Medications Medications (Trade) Dose Ordered Sig/Helio Route Start Time Stop Time Status Last Admin Dose Admin Nitroglycerin (Nitrostat Tab) 0.4 mg UD PRN SL 11/17/17 05:30 12/17/17 05:29 Atorvastatin Calcium (Lipitor Tab) 20 mg DAILY PO 11/17/17 09:00 12/17/17 08:59 3/9/18 08:37 20 MG Escitalopram Oxalate (Lexapro Tab) 10 mg DAILY PO 11/17/17 09:00 12/17/17 08:59 11/23/17 08:38 10 MG Ferrous Gluconate (Ferrous Gluconate Tab) 324 mg QAM PO 11/17/17 09:00 12/17/17 08:59 11/23/17 08:35 324 MG Tramadol HCl (Ultram Tab) 50 mg Q4H PRN PO 11/17/17 05:30 12/17/17 05:29 11/22/17 11:44 50 MG Trazodone HCl (Desyrel Tab) 25 mg HS PO 11/17/17 21:00 12/17/17 20:59 11/22/17 20:59 25 MG Polyethylene (Miralax Powder Packet) 17 gm DAILY PO 11/17/17 09:00 12/17/17 08:59 11/23/17 08:38 17 GM Prochlorperazine Edisylate 5 mg/ Syringe 5 ml @ 5 mls/min Q6H PRN IV 11/17/17 05:30 12/17/17 05:29 Magnesium Hydroxide (Milk Of Magnesia Susp) 30 ml DAILY PRN PO 11/17/17 05:30 12/17/17 05:29 11/20/17 11:48 30 ML Bisacodyl (Dulcolax Supp) 10 mg DAILY PRN AR 11/17/17 05:30 12/17/17 05:29 Sodium Biphosphate/ Sodium Phosphate (Fleet Enema) 132 ml PRN PRN AR 11/17/17 05:30 Haloperidol Lactate (Haldol Inj) 2 mg Q2H PRN IM 11/17/17 07:00 12/17/17 06:59 11/23/17 14:03 2 MG Haloperidol (Haldol Tab) 2 mg Q4H PRN PO 11/17/17 07:45 12/17/17 06:59 11/23/17 14:07 2 MG Hydromorphone HCl (Dilaudid Inj) 1 mg Q3HWA PRN IV 11/17/17 09:45 12/01/17 09:44 11/19/17 08:01 1 MG Magnesium Oxide (Mag-Ox Tab) 400 mg DAILY PO 11/18/17 09:00 12/18/17 08:59 11/23/17 08:38 400 MG Potassium Chloride (Klor-Con Tab) 20 meq QAM PO 11/18/17 09:00 12/18/17 08:59 11/23/17 08:36 20 MEQ Ondansetron HCl (Zofran Inj) 4 mg Q6H PRN IV 11/18/17 14:15 12/18/17 14:14 Acetaminophen (Tylenol Tab) 650 mg Q6H PRN PO 11/18/17 14:15 12/18/17 14:14 Future Hold 11/22/17 10:49 650 MG Oxycodone HCl (Roxicodone Immediate Rel Tab) 5 mg Q4H PRN PO 11/18/17 14:15 12/02/17 14:14 11/20/17 07:48 5 MG Naloxone HCl (Narcan Inj) 0.4 mg Q1M PRN IV 11/18/17 14:15 12/18/17 14:14 Senna/Docusate Sodium (Senokot S Tab) 2 tab HS PO 11/18/17 21:00 12/18/17 20:59 11/21/17 19:21 2 TAB Clopidogrel Bisulfate (plAVix TAB) 75 mg QAM PO 11/19/17 09:00 12/19/17 08:59 11/23/17 08:39 75 MG Aspirin (Ecotrin Tab) 81 mg QAM PO 11/19/17 09:00 12/19/17 08:59 11/23/17 08:35 81 MG Albuterol/ Ipratropium (Duoneb) 3 ml Q2H PRN INH 11/19/17 02:15 12/19/17 02:14 Insulin Aspart (novoLOG ASPART) SLIDING SCALE If C... ACHS SC 11/19/17 11:00 12/19/17 10:59 11/23/17 12:32 3 UNITS Glucose (Glucose 40% Gel) 15-30 GRAMS 15 GRAMS... UD PRN PO 11/19/17 03:30 12/19/17 03:29 Glucose (Glucose Chew Tab) 4-8 Tablets 4 Tabl... UD PRN PO 11/19/17 03:30 12/19/17 03:29 Dextrose (Dextrose 50% 50ML Syringe) 25-50ML OF 50% DW IV FOR... UD PRN IV 11/19/17 03:30 12/19/17 03:29 Glucagon (Glucagon Inj) 1 mg UD PRN SQ 11/19/17 03:30 12/19/17 03:29 Carvedilol (Coreg Tab) 25 mg BID PO 11/20/17 09:00 12/20/17 08:59 11/23/17 08:35 25 MG Olanzapine (Zyprexa Zydis Od Tab) 2.5 mg BID PO 11/20/17 09:00 12/20/17 08:59 11/23/17 08:40 2.5 MG Clonidine HCl (Catapres Tab) 0.1 mg Q6H PRN PO 11/20/17 18:30 12/20/17 18:29 11/23/17 03:14 0.1 MG Insulin Glargine (Lantus Solostar Pen) 5 units QAM SC 11/21/17 10:00 12/21/17 09:59 11/23/17 09:53 5 UNITS Ampicillin Sodium/ Sulbactam Sodium (Consult) 1 ea UD PRN N/A 11/21/17 19:00 12/21/17 18:59 Lisinopril (Zestril Tab) 40 mg DAILY PO 11/22/17 09:00 12/17/17 08:59 11/23/17 08:39 40 MG Ampicillin Sodium/ Sulbactam Sodium 3000 mg/Sodium Chloride 108 ml @ 216 mls/hr Q6H IV 11/21/17 19:00 11/28/17 18:59 11/23/17 19:24 216 MLS/HR Amlodipine Besylate (Norvasc Tab) 5 mg BID PO 11/22/17 21:00 12/22/17 08:59 11/23/17 08:38 5 MG Hydralazine HCl (Apresoline Tab) 25 mg QID PO 11/22/17 13:00 12/22/17 12:59 11/23/17 16:47 25 MG Acetaminophen 650 mg/Empty Bag 65 ml @ 260 mls/hr Q6H IV 11/22/17 16:30 12/22/17 16:29 11/23/17 16:46 260 MLS/HR
[2017-11-23] MEDS: TRAZODONE HCL 50 MG TAB PO SCH (20:54)
[2017-11-23] MEDS: DOCUSATE SODIUM/SENNA 50/8.6MG TAB PO SCH (20:55)
[2017-11-24] MEDS: AMPICILLIN/SULBACTAM SOD INJ 3,000 MG in SODIUM CHLORIDE 0.9% 100ML 100 ML IV SCH ×2 (00:24→07:38)
[2017-11-24 01:04] VITALS: BP 159/73
[2017-11-24 03:03] VITALS: BP 195/70; PULSE 64; TEMP 36.6; O2SAT 96
[2017-11-24] MEDS: CLONIDINE HCL 0.1 MG TAB PO PRN (03:36)
[2017-11-24] MEDS: HALOPERIDOL 1 MG TAB PO PRN (03:37)
[2017-11-24] MEDS: ACETAMINOPHEN IV 650 MG in EMPTY BAG 0 ML IV SCH ×2 (04:56→10:58)
[2017-11-24 05:00] VITALS: BP 139/66
[2017-11-24 06:52] LABS: BASO % 0.5 %; BASO ABS # 0.06 K/uL (0-0.2); EOS % 2.8 %; EOS ABS # 0.33 K/uL (0-0.5); HEMATOCRIT 30.1 % (37-47); HEMOGLOBIN 9.6 g/dL (12.0-16.0); IG# 0.04 K/uL (0.00-0.02); LYMPH % 14.8 %; LYMPH ABS # 1.72 K/uL (1.2-3.4); MEAN CELL VOLUME 90.1 fL (80-100); MEAN CORPUSCULAR HEMOGLOBIN 28.7 pg (25-34); MEAN CORPUSCULAR HGB CONC 31.9 g/dl (32-36); MEAN PLATELET VOLUME 10.3 fL (7.4-10.4); MONO % 6.8 %; MONO ABS # 0.79 K/uL (0.11-0.59); NEUT % 74.8 %; PLATELET COUNT 338 K/uL (130-400); RED CELL DISTRIBUTION WIDTH CV 15.6 % (11.5-14.5); RED CELL DISTRIBUTION WIDTH SD 51.4 fL (36.4-46.3); WHITE BLOOD COUNT 11.64 K/uL (4.8-10.8)
[2017-11-24 07:30] VITALS: BP 185/76; PULSE 64; TEMP 36.4; O2SAT 93
[2017-11-24 07:34] LABS: CALCIUM 8.7 mg/dl (8.5-10.1); CREATININE 0.67 mg/dl (0.60-1.20); PHOSPHORUS 2.5 mg/dl (2.5-4.9); POTASSIUM 3.7 mmol/L (3.5-5.1)
[2017-11-24] MEDS: ASPIRIN 81 MG ECTAB PO SCH (07:42)
[2017-11-24] MEDS: MAGNESIUM OXIDE 400 MG TAB PO SCH (07:42)
[2017-11-24] MEDS: ATORVASTATIN 20 MG TAB PO SCH (07:43)
[2017-11-24] MEDS: POTASSIUM CHLORIDE 20 MEQ TABCR PO SCH (07:43)
[2017-11-24] MEDS: FERROUS GLUCONATE 324 MG TAB PO SCH (07:44)
[2017-11-24] MEDS: CLOPIDOGREL BISULFATE 75 MG TAB PO SCH (07:44)
[2017-11-24] MEDS: ESCITALOPRAM OXALATE 10 MG TAB PO SCH (07:44)
[2017-11-24] MEDS: LISINOPRIL 20 MG TAB PO SCH (07:45)
[2017-11-24] MEDS: AMLODIPINE BESYLATE 5 MG TAB PO SCH (07:47)
[2017-11-24] MEDS: POLYETHYLENE (MIRALAX) 17 GM PACK PO SCH (07:48)
[2017-11-24] MEDS: OLANZAPINE ZYDIS 5 MG ORALLY DIS. TAB PO SCH (07:48)
[2017-11-24] MEDS: CARVEDILOL 25 MG TAB PO SCH (07:50)
[2017-11-24] MEDS: INSULIN GLARGINE SOLOSTAR 100 UNITS/ML 3 ML PEN SC SCH (08:17)
[2017-11-24] MEDS: INSULIN ASPART 100 UNITS/ML 3 ML PEN SC SCH ×2 (08:19→13:41)
[2017-11-24 12:00] VITALS: BP 113/68; PULSE 70; TEMP 36.9; O2SAT 93
[2017-11-24 12:40] VITALS: BP 113/68; PULSE 70; TEMP 36.9; O2SAT 93
--- NOTE | 2017-11-24 13:52 | Progress Note ---
Medicine Progress Note Date & Time of Visit: Nov 24, 2017 at 13:35. Subjective seen resting in bedside chair, alert, comfortable son Tano Freedman says his mom looks great, mental status the best he has seen for a while, more calm, cooperative states her cough/congestion is better too patient denies headache, dizziness, chest pain, dyspnea has less cough hip pain getting better denies other symptoms no other symptoms per Tano Objective Last 8 Hrs Date Time Temp Pulse Resp B/P (MAP) Pulse Ox O2 Delivery O2 Flow Rate FiO2 11/24/17 12:40 36.9 70 20 93 Room Air 11/24/17 12:00 36.9 70 20 113/68 (83) 93 Room Air 11/24/17 11:53 Room Air 11/24/17 08:00 Room Air 11/24/17 07:30 36.4 64 20 185/76 (112) 93 Room Air Physical Exam: General- oriented x 2, not in distress, speaks in sentences with no effort Eyes- anicteric Neck- no JVD Lungs- mild rales right base, no wheezing, clear on the left Heart- normal rate, regular rhythm, no murmurs Abdomen- normal bowel sounds, non distended, soft, nontender Hip- Left: small area of hematoma, mild edema, vimal intact, wound well opposed- no discharge, bleeding, no signs of infection Extremities- no pretibial edema, no calf tenderness Neuro- alert, oriented x 2, no other gross focal neuro deficits Skin- warm & dry Laboratory Results: Last 24 Hours Test 11/23/17 16:29 11/23/17 20:10 11/24/17 06:09 11/24/17 06:38 Bedside Glucose 129 mg/dl 243 mg/dl 189 mg/dl White Blood Count 11.64 K/uL Red Blood Count 3.34 M/uL Hemoglobin 9.6 g/dL Hematocrit 30.1 % Mean Corpuscular Volume 90.1 fL Mean Corpuscular Hemoglobin 28.7 pg Mean Corpuscular Hemoglobin Concent 31.9 g/dl Platelet Count 338 K/uL Mean Platelet Volume 10.3 fL Neutrophils (%) (Auto) 74.8 % Lymphocytes (%) (Auto) 14.8 % Monocytes (%) (Auto) 6.8 % Eosinophils (%) (Auto) 2.8 % Basophils (%) (Auto) 0.5 % Neutrophils # (Auto) 8.70 K/uL Lymphocytes # (Auto) 1.72 K/uL Monocytes # (Auto) 0.79 K/uL Eosinophils # (Auto) 0.33 K/uL Basophils # (Auto) 0.06 K/uL RDW Standard Deviation 51.4 fL RDW Coefficient of Variation 15.6 % Immature Granulocyte % (Auto) 0.3 % Immature Granulocyte # (Auto) 0.04 K/uL Sodium Level 139 mmol/L Potassium Level 3.7 mmol/L Chloride Level 105 mmol/L Carbon Dioxide Level 26 mmol/L Anion Gap 8.0 mmol/L Blood Urea Nitrogen 11 mg/dl Creatinine 0.67 mg/dl Est Creatinine Clear Calc Drug Dose 50.2 ml/min Estimated GFR () 95.5 Estimated GFR (Non- 82.4 BUN/Creatinine Ratio 16.2 Random Glucose 175 mg/dl Calcium Level 8.7 mg/dl Phosphorus Level 2.5 mg/dl Test 11/24/17 11:09 Bedside Glucose 262 mg/dl Assessment & Plan This is an 82 year old female with a PMH of CAD s/p CABG, ischemic cardiomyopathy and chronic systolic CHF, uncontrolled HTN, depression/anxiety, anemia - presents with a fall and subsequent hip fracture Multiple Falls due to Ambulatory Dysfunction Left displaced basicervical femoral neck fracture 11/18/17: s/p Left hip cephalomedullary nailing by Dr. John Rasmussen- [facility] Discharge Instructions per Ortho: (full instructions noted below this note) You are TOE TOUCH WEIGHT BEARING on your operative lower extremity for at least 6 weeks. Please call [facility] at [phone] to schedule a follow up appointment 10-14 days from the date of your surgery date. -Patient needs two person assist at this time, Fall Precautions, Bed Alarm, Monitor closely for delirium, patient may be getting out of bed/chair by herself Episode of Hypoxia likely from Mucous Plug possible Aspiration Pneumonitis, Right noted after surgery nasotracheal suctioning performed, oxygen saturation improved back to room air afebrile resolved given Zosyn then Unasyn x 6 days for possible aspiration pneumonitis cough improving, on room air continue 1 more day of Augmentin BID monitor respiratory status closely Delirium on Dementia patient apparently had a frontal lobe stroke post CABG earlier this year CT head on admission: 1. Chronic small vessel ischemic change. No acute intracranial abnormality. 2. Limited subcutaneous contusion in the right occipital region without underlying osseous injury. patient delirious after surgery due to anesthesia/hypoxia/post-op Zyprexa BID added, PRN Haldol given mental status improved, family agrees continue Zyprexa 2.5mg BID for now, monitor and titrate accordingly continue usual Escitalopram, Trazodone CAD s/p CABG recent CABG in September 2017 no cardiac symptoms Cardiology consulted for preoperative evaluation continue Aspirin, Plavix, Co Reg Uncontrolled HTN difficult to control blood pressure, likely worsened secondary to pain, stress Amlodipine BID added usual Hydralazine further increased to 25mg QID continue usual Coreg, Lisinopril 30mg daily PRN Clonidine -- monitor BP closely, at least BID and titrate medications accordingly Ischemic Cardiomyopathy Chronic Systolic CHF currently euvolemic monitor volume status Depression/Anxiety high risk for delirium monitor closely continue home medications Iron Deficiency Anemia Hg remains at ~9 monitor daily Aspiration Risk per family, noted after CVA continue dental soft diet monitor closely Aspiration Precautions please DVT ppx SCDs due to hematoma in the scalp also on ASA, Plavix DNR Disposition d/c to [facility] Please call [facility] [place] at [phone] to schedule a follow up appointment 10-14 days from surgery date 11/18/17/. Ff up with Primary Care Physician and Business Initiatives Manager as advised ORTHOPEDIC DISCHARGE INSTRUCTIONS SELF CARE INSTRUCTIONS: A. You are to ambulate with a walker or crutches for approximately 6 weeks. B. You are TOE TOUCH WEIGHT BEARING on your operative lower extremity for at least 6 weeks. C. Wear low heeled shoes with non-slip soles D. Be sure that your floors are free of things that could trip you throw rugs, electrical cords, and small objects. Avoid wet and waxed floors, especially with crutches/walker/cane. E. Try to walk several times a day with rest periods between. F. You may shower 48 hours after surgery and get the incision area wet, but DO NOT soak or submerge incision area in water. (No baths, swimming pools, hot tubs ) G. Change dressing daily. If wound is dry, you may leave it to the open air. Keep covered if vimal are catching on your clothes. If incision is leaking through the dressing, please call the office . H. Do NOT apply soap or any ointment/lotions directly over incision. I. You may use ice as needed to operative site. SPECIAL CARE INSTRUCTIONS: VERY IMPORTANT TO READ AND REVIEW A. You may be at risk for phlebitis or blood clots. a. Wear surgical stockings (ZULEIKA hose) for 2 weeks after surgery to improve circulation and reduce swelling. b. Take ASPIRIN and Plavix as directed. This is your blood thinner. c. If you are on Coumadin- you will have daily/weekly blood work to monitor your levels. This will be done by either your family physician/ addresser (if you are on Coumadin chronically) versus your orthopedic surgeon. Expect a phone call the day of or the day after your blood work is drawn to adjust your dose accordingly. B. There are a few signs you need to watch for after you are home. Call [facility] at [phone] if you experience any of the following: a. If you have a temperature of 101 degrees or higher. b. Sudden increase in pain in your hip not relieved by rest or pain medication. c. Any fluid or drainage from the incision; redness of the incision. d. Shortness of breath or chest pain. C. Call your physician if: a. Temperature is greater than 101 degrees (F). b. Pain is not relieved by prescribed pain medications. c. Increase drainage or redness from incision. d. Unanswered questions or concerns. D. Pain Medication: a. You will be prescribed pain medication upon discharge that should last till your first post-operative appointment. b. If you experience nausea and/or skin rash, discontinue this medication and contact our office for an alternative medication. c. Caution- narcotic pain medication can cause constipation. FOLLOW UP VISIT: Please call [facility] at [phone] to schedule a follow up appointment 10-14 days from the date of your surgery date. Current Inpatient Medications: Current Inpatient Medications Medications (Trade) Dose Ordered Sig/Helio Route Start Time Stop Time Status Last Admin Dose Admin Nitroglycerin (Nitrostat Tab) 0.4 mg UD PRN SL 11/17/17 05:30 12/17/17 05:29 Atorvastatin Calcium (Lipitor Tab) 20 mg DAILY PO 11/17/17 09:00 12/17/17 08:59 11/24/17 07:43 20 MG Escitalopram Oxalate (Lexapro Tab) 10 mg DAILY PO 11/17/17 09:00 12/17/17 08:59 11/24/17 07:44 10 MG Ferrous Gluconate (Ferrous Gluconate Tab) 324 mg QAM PO 11/17/17 09:00 12/17/17 08:59 11/24/17 07:44 324 MG Tramadol HCl (Ultram Tab) 50 mg Q4H PRN PO 11/17/17 05:30 12/17/17 05:29 11/22/17 11:44 50 MG Trazodone HCl (Desyrel Tab) 25 mg HS PO 11/17/17 21:00 12/17/17 20:59 11/23/17 20:54 25 MG Polyethylene (Miralax Powder Packet) 17 gm DAILY PO 11/17/17 09:00 12/17/17 08:59 11/24/17 07:48 17 GM Prochlorperazine Edisylate 5 mg/ Syringe 5 ml @ 5 mls/min Q6H PRN IV 11/17/17 05:30 12/17/17 05:29 Magnesium Hydroxide (Milk Of Magnesia Susp) 30 ml DAILY PRN PO 11/17/17 05:30 12/17/17 05:29 11/20/17 11:48 30 ML Bisacodyl (Dulcolax Supp) 10 mg DAILY PRN [place] 11/17/17 05:30 12/17/17 05:29 Sodium Biphosphate/ Sodium Phosphate (Fleet Enema) 132 ml PRN PRN [place] 11/17/17 05:30 Haloperidol Lactate (Haldol Inj) 2 mg Q2H PRN IM 11/17/17 07:00 12/17/17 06:59 11/23/17 23:27 2 MG Haloperidol (Haldol Tab) 2 mg Q4H PRN PO 11/17/17 07:45 12/17/17 06:59 11/24/17 03:37 2 MG Hydromorphone HCl (Dilaudid Inj) 1 mg Q3HWA PRN IV 11/17/17 09:45 12/01/17 09:44 11/19/17 08:01 1 MG Magnesium Oxide (Mag-Ox Tab) 400 mg DAILY PO 11/18/17 09:00 12/18/17 08:59 11/24/17 07:42 400 MG Potassium Chloride (Klor-Con Tab) 20 meq QAM PO 11/18/17 09:00 12/18/17 08:59 11/24/17 07:43 20 MEQ Ondansetron HCl (Zofran Inj) 4 mg Q6H PRN IV 11/18/17 14:15 12/18/17 14:14 Acetaminophen (Tylenol Tab) 650 mg Q6H PRN PO 11/18/17 14:15 12/18/17 14:14 Future Hold 11/22/17 10:49 650 MG Oxycodone HCl (Roxicodone Immediate Rel Tab) 5 mg Q4H PRN PO 11/18/17 14:15 12/02/17 14:14 11/20/17 07:48 5 MG Naloxone HCl (Narcan Inj) 0.4 mg Q1M PRN IV 11/18/17 14:15 12/18/17 14:14 Senna/Docusate Sodium (Senokot S Tab) 2 tab HS PO 11/18/17 21:00 12/18/17 20:59 11/23/17 20:55 2 TAB Clopidogrel Bisulfate (plAVix TAB) 75 mg QAM PO 11/19/17 09:00 12/19/17 08:59 11/24/17 07:44 75 MG Aspirin (Ecotrin Tab) 81 mg QAM PO 11/19/17 09:00 12/19/17 08:59 11/24/17 07:42 81 MG Albuterol/ Ipratropium (Duoneb) 3 ml Q2H PRN INH 11/19/17 02:15 12/19/17 02:14 Insulin Aspart (novoLOG ASPART) SLIDING SCALE If C... ACHS SC 11/19/17 11:00 12/19/17 10:59 11/24/17 08:19 1 UNITS Glucose (Glucose 40% Gel) 15-30 GRAMS 15 GRAMS... UD PRN PO 11/19/17 03:30 12/19/17 03:29 Glucose (Glucose Chew Tab) 4-8 Tablets 4 Tabl... UD PRN PO 11/19/17 03:30 12/19/17 03:29 Dextrose (Dextrose 50% 50ML Syringe) 25-50ML OF 50% DW IV FOR... UD PRN IV 11/19/17 03:30 12/19/17 03:29 Glucagon (Glucagon Inj) 1 mg UD PRN SQ 11/19/17 03:30 12/19/17 03:29 Carvedilol (Coreg Tab) 25 mg BID PO 11/20/17 09:00 12/20/17 08:59 11/24/17 07:50 25 MG Olanzapine (Zyprexa Zydis Od Tab) 2.5 mg BID PO 11/20/17 09:00 12/20/17 08:59 11/24/17 07:48 2.5 MG Clonidine HCl (Catapres Tab) 0.1 mg Q6H PRN PO 11/20/17 18:30 12/20/17 18:29 11/24/17 03:36 0.1 MG Insulin Glargine (Lantus Solostar Pen) 5 units QAM SC 11/21/17 10:00 12/21/17 09:59 11/24/17 08:17 5 UNITS Ampicillin Sodium/ Sulbactam Sodium (Consult) 1 ea UD PRN N/A 11/21/17 19:00 12/21/17 18:59 Lisinopril (Zestril Tab) 40 mg DAILY PO 11/22/17 09:00 12/17/17 08:59 11/24/17 07:45 40 MG Ampicillin Sodium/ Sulbactam Sodium 3000 mg/Sodium Chloride 108 ml @ 216 mls/hr Q6H IV 11/21/17 19:00 11/28/17 18:59 11/24/17 07:38 216 MLS/HR Amlodipine Besylate (Norvasc Tab) 5 mg BID PO 11/22/17 21:00 12/22/17 08:59 11/24/17 07:47 5 MG Hydralazine HCl (Apresoline Tab) 25 mg QID PO 11/22/17 13:00 12/22/17 12:59 11/24/17 07:46 25 MG Acetaminophen 650 mg/Empty Bag 65 ml @ 260 mls/hr Q6H IV 11/22/17 16:30 12/22/17 16:29 11/24/17 10:58 260 MLS/HR
[2017-11-24] MEDS ORDERED: INSDGIPEN SC (14:00)
[2017-11-24] MEDS ORDERED: APR25 PO (14:00)
[2017-11-24] MEDS ORDERED: SENN8.6T7 PO (14:00)
[2017-11-24] MEDS ORDERED: NRV5 PO (14:00)
[2017-11-24] MEDS ORDERED: AMOX875T PO (14:00)
[2017-11-24] MEDS ORDERED: IPRASOL4 INH (14:00)
[2017-11-24] MEDS ORDERED: LISI1TAB3 PO (14:00)
[2017-11-24] MEDS ORDERED: ZYPODT5 PO (14:00)
[2017-11-24] MEDS ORDERED: CARV25TA2 PO (14:00)
[2017-11-24] MEDS ORDERED: CTP1X PO (14:00)
[2017-11-24] MEDS ORDERED: NVLGIPEN SC ×2 (14:00→14:02)
--- NOTE | 2017-11-24 14:07 | Discharge Instructions ---
Discharge Instructions Date of Service Nov 24, 2017. Admission Reason for Admission: Hypertensive Urgency Discharge Discharge Diagnosis / Problem: LEFT FEMORAL NECK FRACTURE, S/P SURGERY Discharge Goals Goal(s): Diagnostic testing, Therapeutic intervention Activity Recommendations Activity Level: Assistance Required (TWO PERSON RITA,) Therapies: Physical Therapy, Occupational Therapy, Speech Therapy Weightbearing Status: Left toe touch LEFT TOE TOUCH ONLY . Additional Information Patient informed of condition: Yes Advance Directives: No (UNKNOWN) DNR: Yes Level of Care: Skilled Communicable Disease: No Prognosis: Improving Instructions / Follow-Up Instructions / Follow-Up FALL PRECAUTIONS. REQUIRES TWO PERSON ASSIST. MONITOR FOR DELIRIUM. PATIENT HAS TENDENCY TO GET OUT OF BED/CHAIR. ASPIRATION PRECAUTIONS. MONITOR BP. MONITOR SCALP CONTUSION. FOLLOW ORTHOPEDIC RECOMMENDATIONS NOTED BELOW. PLEASE REFER TO [facility] DISCHARGE SUMMARY FOR FULL DETAILS. Current Hospital Diet Patient's current hospital diet: AHA Diet (Heart Healthy) Discharge Diet Recommended Diet: AHA Diet (Heart Healthy) Diet Texture: Dental Soft (bite-sized) Procedures Procedures Performed: Left hip cephalomedullary nail Pending Studies Studies pending at discharge: no Physician Orders On Transfer Special Precautions: FALL PRECAUTIONS. REQUIRES TWO PERSON ASSIST. MONITOR FOR DELIRIUM. PATIENT HAS TENDENCY TO GET OUT OF BED/CHAIR. ASPIRATION PRECAUTIONS. MONITOR BP. MONITOR SCALP CONTUSION. FOLLOW ORTHOPEDIC RECOMMENDATIONS NOTED BELOW. PLEASE REFER TO [facility] DISCHARGE SUMMARY FOR FULL DETAILS. Laboratory Results Hemoglobin A1c Test 11/17/17 03:03 Range/Units Estimated Average Glucose 123 mg/dl Hemoglobin A1c 5.9 H 4.5-5.6 % Medical Emergencies . Who to Call and When: Medical Emergencies: If at any time you feel your situation is an emergency, please call 911 immediately. . Non-Emergent Contact Non-Emergency issues call your: Primary Care Provider, Surgeon Call Non-Emergent contact if: you have a fever, your pain is not controlled, your pain is worsening, wound has increased drainage, wound has increased redness, wound has increased pain, you have any medication questions . . "Provider Documentation" section prepared by Esdras Bright. . Construction Specialist Recommendations Construction Specialist Recommendations: U DISCHARGE INSTRUCTIONS: HIP FRACTURE SELF CARE INSTRUCTIONS: A. You are to ambulate with a walker or crutches for approximately 6 weeks. B. You are TOE TOUCH WEIGHT BEARING on your operative lower extremity for at least 6 weeks. C. Wear low heeled shoes with non-slip soles D. Be sure that your floors are free of things that could trip you throw rugs, electrical cords, and small objects. Avoid wet and waxed floors, especially with crutches/walker/cane. E. Try to walk several times a day with rest periods between. F. You may shower 48 hours after surgery and get the incision area wet, but DO NOT soak or submerge incision area in water. (No baths, swimming pools, hot tubs ) G. Change dressing daily. If wound is dry, you may leave it to the open air. Keep covered if vimal are catching on your clothes. If incision is leaking through the dressing, please call the office . H. Do NOT apply soap or any ointment/lotions directly over incision. I. You may use ice as needed to operative site. SPECIAL CARE INSTRUCTIONS: VERY IMPORTANT TO READ AND REVIEW A. You may be at risk for phlebitis or blood clots. a. Wear surgical stockings (ZULEIKA hose) for 2 weeks after surgery to improve circulation and reduce swelling. b. Take ASPIRIN and Plavix as directed. This is your blood thinner. c. If you are on Coumadin- you will have daily/weekly blood work to monitor your levels. This will be done by either your family physician/ investment executive (if you are on Coumadin chronically) versus your orthopedic surgeon. Expect a phone call the day of or the day after your blood work is drawn to adjust your dose accordingly. B. There are a few signs you need to watch for after you are home. Call [facility] at [phone] if you experience any of the following: a. If you have a temperature of 101 degrees or higher. b. Sudden increase in pain in your hip not relieved by rest or pain medication. c. Any fluid or drainage from the incision; redness of the incision. d. Shortness of breath or chest pain. C. Call your physician if: a. Temperature is greater than 101 degrees (F). b. Pain is not relieved by prescribed pain medications. c. Increase drainage or redness from incision. d. Unanswered questions or concerns. D. Pain Medication: a. You will be prescribed pain medication upon discharge that should last till your first post-operative appointment. b. If you experience nausea and/or skin rash, discontinue this medication and contact our office for an alternative medication. c. Caution- narcotic pain medication can cause constipation. FOLLOW UP VISIT: Please call [facility] at [phone] to schedule a follow up appointment 10-14 days from the date of your surgery date. Core Measure Problem Core Measures: None
--- NOTE | 2017-11-24 14:21 | Discharge Summary ---
Discharge Summary Date of Service Nov 24, 2017. Discharge Summary Admission Date: Nov 17, 2017 at 04:53 Discharge Date: Nov 24, 2017 Discharge Disposition: halfway facility Principal Diagnosis: Multiple Falls due to Ambulatory Dysfunction Left Displaced Cervical Femoral Feck Fracture Secondary Diagnoses/Problems: Please refer to hospital course below Procedures: 11/18/17: s/p Left hip cephalomedullary [facility] WITHOUT [facility]AST (CT) CLINICAL HISTORY: 82 years-old Female presenting with posterior head injury in fall. TECHNIQUE: Multidetector CT imaging of the head was performed without the use of intravenous contrast. IV contrast: None. A dose lowering technique was used consistent with the principles of ALARA (as low as reasonably achievable). COMPARISON: None. CT DOSE (mGy.cm): The estimated cumulative dose is 614.27 mGy.cm. FINDINGS: E Commerce Web Developer topogram: Unremarkable. Proportional ventricular and sulcal prominence, likely age-related parenchymal volume loss. No effacement of the sulci at the vertex to suggest upward bowing of the corpus callosum. Periventricular and subcortical white matter hypoattenuation, nonspecific but likely indicative of chronic small vessel ischemic change. No mass effect or midline shift. No hemorrhage or acute territorial infarct. No extra-axial fluid collection. Postsurgical changes of right maxillary antrostomy. Mucosal thickening in the right maxillary sinus and ethmoid air cells. Calvarium intact. Limited soft tissue swelling and infiltration consistent with contusion in the right occipital region. IMPRESSION: 1. Chronic small vessel ischemic change. No acute intracranial abnormality. 2. Limited subcutaneous contusion in the right occipital region without underlying osseous injury. Electronically signed by: Yimi Francisco M.D. 11/17/2017 6:47 AM L FEMUR 2 VIEWS ROUTINE CLINICAL HISTORY: 82 years-old Female presenting with left hip injury in fall. TECHNIQUE: Frontal and lateral views of the left femur were obtained. COMPARISON: None. FINDINGS: Coxa vara angulation of the left femoral neck secondary to angulation at the basocervical left femoral neck fracture. The remainder of the left femur is intact. Knee joint congruent. No gross evidence of a knee joint effusion. Atherosclerosis. Surgical clip projects over the left inguinal region. IMPRESSION: Angulated basocervical left frontal neck fracture. The report will be called/faxed according to standard departmental protocol. Electronically signed by: Yimi Francisco M.D. 11/17/2017 7:48 AM LEFT HIP 2 VIEWS CLINICAL HISTORY: Postoperative examination. FINDINGS: AP and crosstable lateral views of the left hip are compared to study dated 11/17/2017. The skeletal structures are osteopenic. Intertrochanteric and intramedullary nails transfix an intertrochanteric fracture with uatsdin of near-anatomic alignment. A single cortical lag screw transfixes the distal end of the intramedullary nail. There is minimally distracted fracture through the base of the greater trochanter. There are expected postoperative changes overlying the left hip including skin clips, subcutaneous gas, and soft tissue swelling. The visualized left hemipelvis appears intact. The imaged left hemipelvis appears intact. Atherosclerotic calcification is seen in the femoral artery. IMPRESSION: 1. There are expected postoperative changes status post open reduction and internal fixation of a left femoral fracture with uatsdin of near anatomic alignment. 2. There is a minimally distracted fracture through the base of the greater trochanter. Electronically signed by: Orion Bearden M.D. 11/18/2017 2:50 PM CHEST ONE VIEW PORTABLE HISTORY: 82 years-old Female r/o pneumonia acute shortness of breath COMPARISON: Chest radiograph 11/19/2017 TECHNIQUE: Portable AP view of the chest FINDINGS: Cardiac silhouette is again mildly enlarged, unchanged. Prior median sternotomy. Atherosclerosis of the aorta. There is no pneumothorax. Mild blunting of the costophrenic angles with subsegmental bibasilar opacities. No overt pulmonary edema. Bones of the chest appear grossly intact. IMPRESSION: 1. Cardiomegaly without overt pulmonary edema. 2. Trace bilateral pleural effusions with subsegmental bibasilar opacities favoring atelectasis with pneumonitis also within the differential. Consultations: ORTHOPEDIC DR. MASON DÍAZ, EMR SPECIALIST DR. BURNS, REAL ESTATE SALES MANAGER DR. RODRÍGUEZ Pending Studies/Follow-Up: FALL PRECAUTIONS. REQUIRES TWO PERSON ASSIST. MONITOR FOR DELIRIUM. PATIENT HAS TENDENCY TO GET OUT OF BED/CHAIR. ASPIRATION PRECAUTIONS. MONITOR BP. MONITOR SCALP CONTUSION. FOLLOW ORTHOPEDIC RECOMMENDATIONS NOTED BELOW. PLEASE REFER TO HOSPITAL COURSE BELOW FOR FULL DETAILS. Medication Reconciliation New Medications: Amoxicillin & Pot Clavulanate (Augmentin 875-125 mg) 1 Tab Tab 1 TAB PO BID for 1 Day, #2 TAB 0 Refills Amlodipine Besylate (Amlodipine Besylate) 5 Mg Tab 5 MG PO DAILY for 30 Days, #30 TAB Clonidine HCl (Clonidine HCl) 0.1 Mg Tab 0.1 MG PO Q6H PRN for systolic bp > 160 for 30 Days Hydralazine Hcl (Apresoline) 25 Mg Tab 25 MG PO QID for 30 Days, #120 TAB Insulin Aspart (Novolog Flexpen) 100 Units/Ml Inj 0 UNITS SC ACHS for 30 Days Insulin Glargine (Lantus Solostar) 100 Unit/Ml Inj 5 UNITS SC QAM for 30 Days Ipratropium-Albuterol (Duoneb) 3 Ml Nebu 3 ML INH Q4H PRN for SOB/WHEEZING for 30 Days Olanzapine (Olanzapine Odt) 5 Mg Janel 2.5 MG PO BID for 14 Days Sennosides-Docusate Sodium (Senokot S) 1 Tab Tab 1 TAB PO DAILY for 14 Days, #14 TAB Continued Medications: Acetaminophen (Tylenol) 325 Mg Tab 650 MG PO Q4H PRN for Pain or Fever, TAB FOR MILD PAIN # 1-4, OR TEMP > 100. NTE 3GM APAP/24HRS. Aspirin (Aspirin Ec) 81 Mg Tab 81 MG PO DAILY Atorvastatin (Lipitor) 20 Mg Tab 20 MG PO DAILY, TAB Carvedilol (Coreg) 25 Mg Tab 25 MG PO BIDM for 30 Days, TAB (This prescription has been renewed) Clopidogrel (Plavix) 75 Mg Tab 75 MG PO DAILY, TAB Escitalopram (Lexapro) 10 Mg Tab 10 MG PO DAILY, TAB Ferrous Gluconate (Ferrous Gluconate) 324 Mg Tab 324 MG PO QAM, TAB TAKE WITH BREAKFAST Lisinopril (Zestril) 30 Mg Tab 30 MG PO DAILY for 30 Days, #30 TAB (This prescription has been renewed) Lorazepam (Ativan) 0.5 Mg Tab 0.5 MG PO TID PRN for Anxiety, TAB Magnesium Oxide (Mag-Ox) 400 Mg Tab 400 MG PO DAILY, TAB Nitroglycerin (Nitrostat) 0.4 Mg Sub 0.4 MG UT PRN, BTL NEEDED FOR CHEST PAIN : ONE TABLET UNDER THE TONGUE EVERY 5 MINUTES UP TO 3 DOSES. Polyethylene Glycol 3350 (Miralax) 1 Pow Pow 17 GM PO DAILY Potassium Chloride (Klor-Con M20) 20 Meq Tabcr 20 MEQ PO QAM Tramadol (Ultram) 50 Mg Tab 50 MG PO Q4H PRN for Pain, TAB Trazodone Hcl (Trazodone) 50 Mg Tab 25 MG PO HS, TAB 1/2 TABLET DOSE Discontinued Medications: Acetaminophen (Tylenol) 500 Mg Tab 500 MG PO QID, TAB NTE 3GM APAP/24HRS. Hydralazine Hcl (Apresoline) 10 Mg Tab 10 MG PO QID, TAB Oseltamivir (Tamiflu) 75 Mg Cap 75 MG PO DAILY BEGIN 11/12/17 X 10 DAYS. LAST DOSE 11/21/17. Admission Information HPI (per Admitting provider): DATE OF ADMISSION: 11/17/2017 PRIMARY CARE PHYSICIAN: Dr. Grey. CHIEF COMPLAINT: Fall, left hip pain. HISTORY OF PRESENT ILLNESS: History obtained from patient, daughter and records. Patient is a fair historian. Limited history secondary to dementia. Medical history significant for dementia, chronic systolic heart failure as per records, CAD status post CABG, COPD as per records, chronic anemia (baseline hemoglobin 11), hx CVA L on CT (10/2017) Patient has been staying at the [facility] for rehab since October 2017. She underwent CABG for coronary artery disease at [facility], September 2017. Subsequently discharged home. Subsequently re-admitted a few days later with pneumonia. Patient subsequently discharged to [facility] initially for rehab. Unclear possibility of the patient ever going back home because of mentation change since bypass surgery. Family is concerned about possible stroke with right-sided facial weakness noted a few days after surgery - never acknowledged by [facility] providers as per daughter. [facility] last one was last week. CT head last 11/14/2017 showed scalp hematoma on the right parietal area. no intracranial hemorrhage, Global atrophy, old lacunar infarct on the left. Last night, the patient was going to the bathroom when she fell on her left hip, excruciating pain, L hip noted to be rotated. Patient denies chest pain, shortness of breath, cough symptoms, syncope. Patient brought to the Emergency Room. Physical Exam (per Admitting): VITAL SIGNS: Blood pressure was noted to be 190/116, later 180/90 cardiac rate 70, RR 18, temperature 36.9, and sats 90 on room air. GENERAL: Noted to be hyposthenic, demented, coherent, somewhat candid, slightly hard of hearing SKIN: Pallor, warm. HEENT: Pale palpebral conjunctivae, no ptosis, right facial asymmetry (old as per daughter) NECK: Supple, nontender. CHEST: Decreased effort. no tenderness HEART: Regular rate and rhythm. Systolic murmur, palpable LE pulses. ABDOMEN: Some distention, nontender. EXTREMITIES: Tenderness in the left hip, some rotation. NEUROLOGIC: Demented, but coherent. Subtle facial asymmetry, mild hearing impairment. Hospital Course This is an 82 year old female with a PMH of CAD s/p CABG, ischemic cardiomyopathy and chronic systolic CHF, uncontrolled HTN, depression/anxiety, anemia - presents with a fall and subsequent hip fracture Multiple Falls due to Ambulatory Dysfunction Left displaced basicervical femoral neck fracture 11/18/17: s/p Left hip cephalomedullary nailing by Dr. Mason Díaz- [facility] post op, transferred to ICU for monitoring due to episode of hypoxia, resolved, details noted below also developed delirium which resolved, details below eventually transferred out of ICU, to Telemetry received PT/OT pain managed with IV Ofirmev, Oxycodone- monitor Discharge Instructions per Ortho: (full instructions noted below this note) You are TOE TOUCH WEIGHT BEARING on your operative lower extremity for at least 6 weeks. Please call [facility] at [phone] to schedule a follow up appointment 10-14 days from the date of your surgery date. -Patient needs two person assist at this time, Fall Precautions, Bed Alarm, Monitor closely for delirium, patient may be getting out of bed/chair by herself Episode of Hypoxia likely from Mucous Plug possible Aspiration Pneumonitis, Right noted after surgery nasotracheal suctioning performed, oxygen saturation improved back to room air afebrile resolved given Zosyn then Unasyn x 6 days for possible aspiration pneumonitis cough improving, on room air continue 1 more day of Augmentin BID monitor respiratory status closely Delirium on Dementia patient apparently had a frontal lobe stroke post CABG earlier this year CT head on admission: 1. Chronic small vessel ischemic change. No acute intracranial abnormality. 2. Limited subcutaneous contusion in the right occipital region without underlying osseous injury. patient delirious after surgery due to anesthesia/hypoxia/post-op Zyprexa BID added, PRN Haldol given mental status improved, family agrees continue Zyprexa 2.5mg BID for now, monitor and titrate accordingly continue usual Escitalopram, Trazodone monitor scalp contusion CAD s/p CABG recent CABG in September 2017 no cardiac symptoms Cardiology consulted for preoperative evaluation continue Aspirin, Plavix, Co Reg Uncontrolled HTN difficult to control blood pressure, likely worsened secondary to pain, stress Amlodipine BID added, transition to Amlodipine daily as BP improving usual Hydralazine further increased to 25mg QID continue usual Coreg, Lisinopril 30mg daily PRN Clonidine -- monitor BP closely, at least BID and titrate medications accordingly Ischemic Cardiomyopathy Chronic Systolic CHF currently euvolemic monitor volume status Depression/Anxiety high risk for delirium monitor closely continue home medications Iron Deficiency Anemia Hg remains at ~9 monitor daily Aspiration Risk per family, noted after CVA continue dental soft diet monitor closely Aspiration Precautions please DVT ppx SCDs due to hematoma in the scalp also on ASA, Plavix DNR Disposition d/c to [facility] Please call [facility] at [phone] to schedule a follow up appointment 10-14 days from surgery date 11/18/17/. Ff up with Primary Care Physician and Twister Tender Paper as advised ORTHOPEDIC DISCHARGE INSTRUCTIONS SELF CARE INSTRUCTIONS: A. You are to ambulate with a walker or crutches for approximately 6 weeks. B. You are TOE TOUCH WEIGHT BEARING on your operative lower extremity for at least 6 weeks. C. Wear low heeled shoes with non-slip soles D. Be sure that your floors are free of things that could trip you throw rugs, electrical cords, and small objects. Avoid wet and waxed floors, especially with crutches/walker/cane. E. Try to walk several times a day with rest periods between. F. You may shower 48 hours after surgery and get the incision area wet, but DO NOT soak or submerge incision area in water. (No baths, swimming pools, hot tubs ) G. Change dressing daily. If wound is dry, you may leave it to the open air. Keep covered if vimal are catching on your clothes. If incision is leaking through the dressing, please call the office . H. Do NOT apply soap or any ointment/lotions directly over incision. I. You may use ice as needed to operative site. SPECIAL CARE INSTRUCTIONS: VERY IMPORTANT TO READ AND REVIEW A. You may be at risk for phlebitis or blood clots. a. Wear surgical stockings (ZULEIKA hose) for 2 weeks after surgery to improve circulation and reduce swelling. b. Take ASPIRIN and Plavix as directed. This is your blood thinner. c. If you are on Coumadin- you will have daily/weekly blood work to monitor your levels. This will be done by either your family physician/ rotary bar operator (if you are on Coumadin chronically) versus your orthopedic surgeon. Expect a phone call the day of or the day after your blood work is drawn to adjust your dose accordingly. B. There are a few signs you need to watch for after you are home. Call [facility] at [phone] if you experience any of the following: a. If you have a temperature of 101 degrees or higher. b. Sudden increase in pain in your hip not relieved by rest or pain medication. c. Any fluid or drainage from the incision; redness of the incision. d. Shortness of breath or chest pain. C. Call your physician if: a. Temperature is greater than 101 degrees (F). b. Pain is not relieved by prescribed pain medications. c. Increase drainage or redness from incision. d. Unanswered questions or concerns. D. Pain Medication: a. You will be prescribed pain medication upon discharge that should last till your first post-operative appointment. b. If you experience nausea and/or skin rash, discontinue this medication and contact our office for an alternative medication. c. Caution- narcotic pain medication can cause constipation. FOLLOW UP VISIT: Please call [facility] at [phone] to schedule a follow up appointment 10-14 days from the date of your surgery date. Total time spent on discharge = 60 minutes This includes examination of the patient, discharge planning, medication reconciliation, and communication with other providers. Discharge Instructions Discharge Instructions Date of Service Nov 24, 2017. Admission Reason for Admission: Hypertensive Urgency Discharge Discharge Diagnosis / Problem: LEFT FEMORAL NECK FRACTURE, S/P SURGERY Discharge Goals Goal(s): Diagnostic testing, Therapeutic intervention Activity Recommendations Activity Level: Assistance Required (TWO PERSON RITA,) Therapies: Physical Therapy, Occupational Therapy, Speech Therapy Weightbearing Status: Left toe touch LEFT TOE TOUCH ONLY . Additional Information Patient informed of condition: Yes Advance Directives: No (UNKNOWN) DNR: Yes Level of Care: Skilled Communicable Disease: No Prognosis: Improving Instructions / Follow-Up Instructions / Follow-Up FALL PRECAUTIONS. REQUIRES TWO PERSON ASSIST. MONITOR FOR DELIRIUM. PATIENT HAS TENDENCY TO GET OUT OF BED/CHAIR. ASPIRATION PRECAUTIONS. MONITOR BP. MONITOR SCALP CONTUSION. FOLLOW ORTHOPEDIC RECOMMENDATIONS NOTED BELOW. PLEASE REFER TO [facility]ANYING HOSPITAL DISCHARGE SUMMARY FOR FULL DETAILS. Current Hospital Diet Patient's current hospital diet: AHA Diet (Heart Healthy) Discharge Diet Recommended Diet: AHA Diet (Heart Healthy) Diet Texture: Dental Soft (bite-sized) Procedures Procedures Performed: Left hip cephalomedullary nail Pending Studies Studies pending at discharge: no Physician Orders On Transfer Special Precautions: FALL PRECAUTIONS. REQUIRES TWO PERSON ASSIST. MONITOR FOR DELIRIUM. PATIENT HAS TENDENCY TO GET OUT OF BED/CHAIR. ASPIRATION PRECAUTIONS. MONITOR BP. MONITOR SCALP CONTUSION. FOLLOW ORTHOPEDIC RECOMMENDATIONS NOTED BELOW. PLEASE REFER TO ACCOMPANYING HOSPITAL DISCHARGE SUMMARY FOR FULL DETAILS. Laboratory Results Hemoglobin A1c Test 11/17/17 03:03 Range/Units Estimated Average Glucose 123 mg/dl Hemoglobin A1c 5.9 H 4.5-5.6 % Medical Emergencies . Who to Call and When: Medical Emergencies: If at any time you feel your situation is an emergency, please call 911 immediately. . Non-Emergent Contact Non-Emergency issues call your: Primary Care Provider, Surgeon Call Non-Emergent contact if: you have a fever, your pain is not controlled, your pain is worsening, wound has increased drainage, wound has increased redness, wound has increased pain, you have any medication questions . . "Provider Documentation" section prepared by Esdras Bright. . Management Architect Recommendations Management Architect Recommendations: U DISCHARGE INSTRUCTIONS: HIP FRACTURE SELF CARE INSTRUCTIONS: A. You are to ambulate with a walker or crutches for approximately 6 weeks. B. You are TOE TOUCH WEIGHT BEARING on your operative lower extremity for at least 6 weeks. C. Wear low heeled shoes with non-slip soles D. Be sure that your floors are free of things that could trip you throw rugs, electrical cords, and small objects. Avoid wet and waxed floors, especially with crutches/walker/cane. E. Try to walk several times a day with rest periods between. F. You may shower 48 hours after surgery and get the incision area wet, but DO NOT soak or submerge incision area in water. (No baths, swimming pools, hot tubs ) G. Change dressing daily. If wound is dry, you may leave it to the open air. Keep covered if vimal are catching on your clothes. If incision is leaking through the dressing, please call the office . H. Do NOT apply soap or any ointment/lotions directly over incision. I. You may use ice as needed to operative site. SPECIAL CARE INSTRUCTIONS: VERY IMPORTANT TO READ AND REVIEW A. You may be at risk for phlebitis or blood clots. a. Wear surgical stockings (ZULEIKA hose) for 2 weeks after surgery to improve circulation and reduce swelling. b. Take ASPIRIN and Plavix as directed. This is your blood thinner. c. If you are on Coumadin- you will have daily/weekly blood work to monitor your levels. This will be done by either your family physician/ rotary bar operator (if you are on Coumadin chronically) versus your orthopedic surgeon. Expect a phone call the day of or the day after your blood work is drawn to adjust your dose accordingly. B. There are a few signs you need to watch for after you are home. Call [facility] at [phone] if you experience any of the following: a. If you have a temperature of 101 degrees or higher. b. Sudden increase in pain in your hip not relieved by rest or pain medication. c. Any fluid or drainage from the incision; redness of the incision. d. Shortness of breath or chest pain. C. Call your physician if: a. Temperature is greater than 101 degrees (F). b. Pain is not relieved by prescribed pain medications. c. Increase drainage or redness from incision. d. Unanswered questions or concerns. D. Pain Medication: a. You will be prescribed pain medication upon discharge that should last till your first post-operative appointment. b. If you experience nausea and/or skin rash, discontinue this medication and contact our office for an alternative medication. c. Caution- narcotic pain medication can cause constipation. FOLLOW UP VISIT: Please call [facility] at [phone] to schedule a follow up appointment 10-14 days from the date of your surgery date. Core Measure Problem Core Measures: None
== END 2017-11-24 14:55 | DRG 480 ==
LOC: EDBD 02:32 → C.EDB 02:33 → C.2T 04:53 → ENRESERV 05:09 → C.2T 15:26 → C.MSICU 11-18 16:12 → C.2T 11-21 16:20
PROVIDERS: ADMIT Family Medicine; ATTEND Internal Medicine
PROC: 0QS706Z Reposition Left Upper Femur with Intramedullary Internal Fixation Device, Open Approach (ICD-10-PCS; principal; 2017-11-19)
DX: S72.092A Other fracture of head and neck of left femur, initial encounter for closed fracture (principal); J96.01 Acute respiratory failure with hypoxia; J95.2 Acute pulmonary insufficiency following nonthoracic surgery; J69.0 Pneumonitis due to inhalation of food and vomit; I11.0 Hypertensive heart disease with heart failure; I50.22 Chronic systolic (congestive) heart failure; I16.0 Hypertensive urgency; R29.6 Repeated falls; R41.0 Disorientation, unspecified; F03.90 Unspecified dementia, unspecified severity, without behavioral disturbance, psychotic disturbance, mood disturbance, and anxiety; I25.10 Atherosclerotic heart disease of native coronary artery without angina pectoris; J44.9 Chronic obstructive pulmonary disease, unspecified; I25.5 Ischemic cardiomyopathy; D50.9 Iron deficiency anemia, unspecified; R73.9 Hyperglycemia, unspecified; F32.9 Major depressive disorder, single episode, unspecified; F41.9 Anxiety disorder, unspecified; Z66 Do not resuscitate; Z79.02 Long term (current) use of antithrombotics/antiplatelets; Z79.82 Long term (current) use of aspirin; Z79.899 Other long term (current) drug therapy; Z86.73 Personal history of transient ischemic attack (TIA), and cerebral infarction without residual deficits; Z87.01 Personal history of pneumonia (recurrent); Z91.81 History of falling; Z95.1 Presence of aortocoronary bypass graft; W18.00XA Striking against unspecified object with subsequent fall, initial encounter; Y92.003 Bedroom of unspecified non-institutional (private) residence as the place of occurrence of the external cause; T41.45XA Adverse effect of unspecified anesthetic, initial encounter